=== PATIENT | female | born 1980 ===

== ENCOUNTER 2017-05-17 00:53 | Inpatient (IN) | payer MEDICAID ==
[2017-05-17] MEDS ORDERED: guaiFENesin-DM 600-30 mg ER Tab PO STA (01:49)
[2017-05-17] MEDS ORDERED: Albuterol-Ipratrop 3 mg / 0.5 (3 ml) UD INH STA (01:49)
[2017-05-17] MEDS ORDERED: Albuterol-Ipratrop 3 mg / 0.5 (3 ml) UD ONE ×2 (02:30→09:00)
[2017-05-17 02:54] LABS: BASO # 0.1 K/uL (0.0-0.2); BASO % 1.7 % (0.0-2.0); EOS # 0.7 K/uL (0.0-0.7); EOS % 11.4 % (0.0-4.0); HEMATOCRIT 19.5 % (34.0-47.0); LYMPH # 1.7 K/uL (1.0-4.3); LYMPH % 28.8 % (20.0-40.0); MEAN CELL VOLUME 55.6 fl (81.0-99.0); MEAN CORPUSCULAR HEMOGLOBIN 15.7 pg (27.0-31.0); MEAN CORPUSCULAR HGB CONC 28.2 g/dL (33.0-37.0); MONO # 0.3 K/uL (0.0-0.8); MONO % 5.6 % (0.0-10.0); NEUT # 3.1 K/uL (1.8-7.0); NEUT % 52.5 % (50.0-75.0); NRBC % 0.2 % (0.0-0.0); RED CELL DISTRIBUTION WIDTH 21.1 % (11.5-14.5); WHITE BLOOD COUNT 5.9 K/uL (4.8-10.8)
--- NOTE | 2017-05-17 03:01 | ED PDOC ---
HPI: CCC, URI, Sore Throat Time Seen by Provider: 05/17/17 01:07 Chief Complaint (Nursing): Shortness Of Breath Chief Complaint (Provider): Congestion History Per: Patient History/Exam Limitations: no limitations Onset/Duration Of Symptoms: Days (x2 weeks) Current Symptoms Are (Timing): Still Present Additional Complaint(s): Kaelyn Holloway is a 37 year old female with previous medical history of asthma and anemia, who presents to the emergency department with a complaint of congestion associated with dyspnea, cough, rhinorrhea, chest pain, shortness of breath, and excessive tiredness. Patient states that she has been using Zyrtec and inhaler to relieve her symptoms. Also reports that she has been dealing with stress from family issues and concerned about STDs because she does not trust her partner. Denies any suicidal ideation, homicidal ideation, or symptoms of STD. PMD: none provided Past Medical History Vital Signs: Last Vital Signs Temp 98.2 F 05/17/17 04:40 Pulse 77 05/17/17 04:40 Resp 16 05/17/17 04:40 BP 116/54 L 05/17/17 04:40 Pulse Ox 100 05/17/17 04:32 - Medical History PMH: Anemia, Anxiety, Arthritis, Asthma, Bronchitis, Depression, Gall Bladder Disease, Pneumonia, End Stage Renal Disease Denies: Diabetes, Hepatitis, HIV, HTN, Chronic Kidney Disease, Seizures, Sexually Transmitted Disease - Surgical History Surgical History: - Family History Family History: States: Diabetes, Hypertension - Social History Current smoker - smoking cessation education provided: Yes (<10 cigarettes/daily ) Alcohol: None Drugs: Denies - Home Medications Home Medications: Ambulatory Orders Medication Instructions Recorded Albuterol HFA [Ventolin HFA 90 2 puff IH [id number] PRN 05/17/17 mcg/actuation (8 g)] Cetirizine HCl [Zyrtec Allergy] 10 mg PO DAILY 05/17/17 - Allergies Allergies/Adverse Reactions: Allergies Allergy/AdvReac Type Severity Reaction Status Date / Time Penicillins Allergy Mild Unknown Verified 10/13/16 13:27 Review of Systems ROS Statement: Except As Marked, All Systems Reviewed And Found Negative ENT: Positive for: Nose Discharge, Nose Congestion Respiratory: Positive for: Cough, Other (dyspnea) Genitourinary Female: Negative for: Other (STD symptoms) Psych: Negative for: Suicidal ideation (or homicidal ideation) Physical Exam - Reviewed Vital Signs Reviewed: Yes - Physical Exam Appears: Positive for: Well, Non-toxic, No Acute Distress Head Exam: Positive for: ATRAUMATIC, NORMAL INSPECTION, NORMOCEPHALIC Skin: Positive for: Normal Color, Warm, Dry Eye Exam: Positive for: Normal appearance ENT: Positive for: Normal ENT Inspection Neck: Positive for: Normal, Painless ROM, Supple Cardiovascular/Chest: Positive for: Regular Rate, Rhythm Respiratory: Positive for: Normal Breath Sounds, Other (cough). Negative for: Crackles, Rales, Rhonchi, Wheezing Gastrointestinal/Abdominal: Positive for: Normal Exam, Bowel Sounds, Soft. Negative for: Tenderness Back: Positive for: Normal Inspection. Negative for: L CVA Tenderness, R CVA Tenderness Neurologic/Psych: Positive for: Alert, Oriented - Laboratory Results Result Diagrams: 05/17/17 02:28 05/17/17 02:28 - ECG O2 Sat by Pulse Oximetry: 100 (RA) Pulse Ox Interpretation: Normal Medical Decision Making Medical Decision Making: Initial Impression: URI Initial Plan: * Type and screen * Labs * Chlamydia/GC RNA, TMA * Duoneb 3ml INH * Mucinex-DM 1 tab PO * Prednisone 60mg PO * Peak flow pre/post TX * HIV rapid * Reevaluate Pt. with symptomatic anemia, will require transfusion. Will admit for anemia. CAse discussed with Dr. Huston. Scribe Attestation: Documented by Maria De Jesus Aragon, acting as a scribe for Wes Ramos MD. Provider Scribe Attestation: All medical record entries made by the Scribe were at my direction and personally dictated by me. I have reviewed the chart and agree that the record accurately reflects my personal performance of the history, physical exam, medical decision making, and the department course for this patient. I have also personally directed, reviewed, and agree with the discharge instructions and disposition. Disposition - Clinical Impression Clinical Impression: Anemia, Shortness of breath - Disposition Disposition Time: 04:00 Condition: STABLE
[2017-05-17 03:09] LABS: BLOOD UREA NITROGEN 10 mg/dl (7-17); CALCIUM 9.3 mg/dL (8.4-10.2); CARBON DIOXIDE 24 mmol/L (22-30); CHLORIDE 108 mmol/L (98-107); GFR AFRICAN-AMERICAN > 60; GLUCOSE,RANDOM 90 mg/dL (65-105); POTASSIUM 3.8 MMOL/L (3.6-5.0); SODIUM 143 mmol/l (132-148)
--- NOTE | 2017-05-17 07:52 | RAD ---
HISTORY: cp/sob, anemia COMPARISON: No prior. TECHNIQUE: Chest PA and lateral FINDINGS: LUNGS: No active pulmonary disease. PLEURA: No significant pleural effusion identified. No pneumothorax apparent. CARDIOVASCULAR: Normal. OSSEOUS STRUCTURES: No significant abnormalities. VISUALIZED UPPER ABDOMEN: Normal. OTHER FINDINGS: None. IMPRESSION: No active disease.
[2017-05-17] MEDS: Sodium Chloride 0.9% 1,000 ML IV SCH ×2 (08:53→22:19)
[2017-05-17] MEDS ORDERED: Iron Sucrose 100 mg/5 ml Inj ONE (09:00)
[2017-05-17 09:24] LABS: IRON < 10 ug/dL (37-170)
[2017-05-17] MEDS ORDERED: Hydrocortisone- 100 MG in Sodium Chloride 0.9% 100 ML IV ONE (12:00)
[2017-05-18 00:24] LABS: HEMATOCRIT 23.9 % (34.0-47.0); MEAN CELL VOLUME 63.6 fl (81.0-99.0); MEAN CORPUSCULAR HEMOGLOBIN 18.5 pg (27.0-31.0); MEAN CORPUSCULAR HGB CONC 29.1 g/dL (33.0-37.0); RED CELL DISTRIBUTION WIDTH 30.5 % (11.5-14.5); WHITE BLOOD COUNT 17.4 K/uL (4.8-10.8)
--- NOTE | 2017-05-18 02:34 | CP.PCM.CON ---
History of Present Illness - History of Present Illness History of Present Illness: 37 year old female with a history of menorrhagia and chronic iron deficiency anemia, admitted with symptomatic anemia. The patient reports to heavy periods for several years. She has been on intermittent oral iron but notes to requiring over 20 blood transfusions despite this. She is awaiting PRBC transfusion support with matched blood coming from [place]. Past medical history: Menorrhagia, iron deficiency anemia Past surgical history: x 3 Family history: Denies hematologic and oncologic problems Social history: Denies tobacco, alcohol, and illicit drug use. Allergies: PCN Review of systems: All remaining review of systems including HEENT, cardiovascular, respiratory, gatrointestinal, genitourinary, musculsokeletal, dermatologic, neurologic, and psychiatric are negative unless mentioned in the HPI. Past Patient History - Infectious Disease Hx of Infectious Diseases: None - Tetanus Immunizations Tetanus Immunization: Unknown - Past Medical History & Family History Past Medical History?: Yes - Past Social History Smoking Status: Former Smoker - CARDIAC Hx Cardiac Disorders: No Hx Hypertension: No - PULMONARY Hx Respiratory Disorders: Yes Hx Asthma: Yes Hx Bronchitis: Yes Hx Pneumonia: Yes - NEUROLOGICAL Hx Neurological Disorder: No Hx Seizures: No - HEENT Hx HEENT Problems: No - RENAL Hx Chronic Kidney Disease: No - ENDOCRINE/METABOLIC Hx Endocrine Disorders: No - HEMATOLOGICAL/ONCOLOGICAL Hx Blood Disorders: Yes Hx Anemia: Yes Hx Human Immunodeficiency Virus (HIV): No - INTEGUMENTARY Hx Dermatological Problems: No - MUSCULOSKELETAL/RHEUMATOLOGICAL Hx Musculoskeletal Disorders: Yes Hx Arthritis: Yes Hx Falls: No - GASTROINTESTINAL Hx Gastrointestinal Disorders: Yes Hx Gall Bladder Disease: Yes - GENITOURINARY/GYNECOLOGICAL Hx Genitourinary Disorders: No Hx Sexually Transmitted Disorders: No - PSYCHIATRIC Hx Psychophysiologic Disorder: Yes Hx Anxiety: Yes Hx Depression: Yes Hx Substance Use: No - SURGICAL HISTORY Hx Surgeries: Yes Hx Section: Yes (x3) Hx Tubal Ligation: Yes - ANESTHESIA Hx Anesthesia: Yes Hx Anesthesia Reactions: No Hx Malignant Hyperthermia: No Meds Allergies/Adverse Reactions: Allergies Allergy/AdvReac Type Severity Reaction Status Date / Time Penicillins Allergy Mild Unknown Verified 10/13/16 13:27 - Medications Medications: Current Medications Acetaminophen (Tylenol 325mg Tab) 650 mg PO Q6 PRN PRN Reason: Pain, moderate (4-7) Last Admin: 05/17/17 22:16 Dose: 650 mg Albuterol/Ipratropium (Duoneb 3 Mg/0.5 Mg (3 Ml) Ud) 3 ml INH RQ6 PRN PRN Reason: Shortness of Breath Sodium Chloride (Sodium Chloride 0.9%) 1,000 mls @ 70 mls/hr IV .[id number] [facility] Stop: 05/18/17 07:47 Last Admin: 05/17/17 22:19 Dose: 70 mls/hr Iron Sucrose 200 mg/ Sodium (Chloride) 110 mls @ 110 mls/hr IVPB DAILY [facility] Stop: 05/22/17 10:46 Loratadine (Claritin) 10 mg PO DAILY [facility] Last Admin: 05/17/17 09:00 Dose: Not Given Physical Exam - Head Exam Head Exam: ATRAUMATIC - Eye Exam Eye Exam: Normal appearance - ENT Exam ENT Exam: Mucous Membranes Dry - Respiratory Exam Respiratory Exam: NORMAL BREATHING PATTERN - Cardiovascular Exam Cardiovascular Exam: +S1, +S2 - GI/Abdominal Exam GI & Abdominal Exam: Normal Bowel Sounds - Extremities Exam Extremities exam: Positive for: normal inspection - Neurological Exam Neurological exam: Oriented x3 - Psychiatric Exam Psychiatric exam: Normal Affect, Normal Mood - Skin Skin Exam: Warm Results - Vital Signs Recent Vital Signs: Last Vital Signs Temp 98.3 F 05/17/17 23:44 Pulse 87 05/17/17 23:44 Resp 19 05/17/17 23:44 BP 103/63 05/17/17 23:44 Pulse Ox 99 05/17/17 23:44 - Labs Result Diagrams: 05/18/17 18:10 05/18/17 18:10 Labs: Laboratory Results - last 24 hr 05/17/17 05/17/17 23:59 23:59 WBC 17.4 H D RBC 3.75 L Hgb 6.9 L Hct 23.9 L MCV 63.6 L D MCH 18.5 L MCHC 29.1 L RDW 30.5 H Plt Count 226 Troponin I < 0.0120 Assessment & Plan (1) Anemia Assessment and Plan: work up consistent with iron deficiency anemia, likely from chronic menorrhagia 2U PRBC today; has antibodies and PRBC coming from [place] later today will start IV iron [employer] f/u Status: Acute (2) Leukocytosis Assessment and Plan: likely reactive Thank you for this interesting consult. Status: Acute
[2017-05-18 08:28] LABS: HEMATOCRIT 24.2 % (34.0-47.0); MEAN CELL VOLUME 63.2 fl (81.0-99.0); MEAN CORPUSCULAR HEMOGLOBIN 19.2 pg (27.0-31.0); MEAN CORPUSCULAR HGB CONC 30.4 g/dL (33.0-37.0); RED CELL DISTRIBUTION WIDTH 30.4 % (11.5-14.5); WHITE BLOOD COUNT 10.2 K/uL (4.8-10.8)
[2017-05-18 08:32] LABS: ALB/GLOB RATIO 1.5 (1.0-2.1); ALKALINE PHOSPHATASE 61 U/L (38-126); ALT/SGPT 26 U/L (9-52); AST/SGOT 21 U/L (14-36); BILIRUBIN,TOTAL 0.6 mg/dl (0.2-1.3); BLOOD UREA NITROGEN 11 mg/dl (7-17); CALCIUM 8.7 mg/dL (8.4-10.2); CARBON DIOXIDE 25 mmol/L (22-30); CHLORIDE 109 mmol/L (98-107); GFR AFRICAN-AMERICAN > 60; GLUCOSE,RANDOM 97 mg/dL (65-105); SODIUM 143 mmol/l (132-148); TOTAL PROTEIN 6.1 G/DL (6.3-8.2)
[2017-05-18] MEDS: Acetaminophen-Codeine 300/30 mg Tab PO PRN ×2 (11:09→17:16)
[2017-05-18] MEDS: Albuterol-Ipratrop 3 mg / 0.5 (3 ml) UD INH PRN ×2 (11:43→23:44)
[2017-05-18 18:21] LABS: HEMATOCRIT 24.8 % (34.0-47.0); MEAN CELL VOLUME 63.9 fl (81.0-99.0); MEAN CORPUSCULAR HEMOGLOBIN 18.3 pg (27.0-31.0); MEAN CORPUSCULAR HGB CONC 28.7 g/dL (33.0-37.0); RED CELL DISTRIBUTION WIDTH 30.8 % (11.5-14.5)
[2017-05-18 18:28] LABS: ALB/GLOB RATIO 1.5 (1.0-2.1); ALKALINE PHOSPHATASE 67 U/L (38-126); ALT/SGPT 63 U/L (9-52); AST/SGOT 60 U/L (14-36); BILIRUBIN,TOTAL 0.6 mg/dl (0.2-1.3); BLOOD UREA NITROGEN 11 mg/dl (7-17); CALCIUM 8.6 mg/dL (8.4-10.2); CARBON DIOXIDE 26 mmol/L (22-30); CHLORIDE 107 mmol/L (98-107); GFR AFRICAN-AMERICAN > 60; GLUCOSE,RANDOM 94 mg/dL (65-105); POTASSIUM 3.7 MMOL/L (3.6-5.0); SODIUM 142 mmol/l (132-148); TOTAL PROTEIN 6.1 G/DL (6.3-8.2)
[2017-05-18] MEDS ORDERED: Acetaminophen-Codeine 300/30 mg Tab PO ONE (20:49)
[2017-05-18 21:45] LABS: RBC URINE 2 /hpf (0-3); URINE BILIRUBIN NEGATIVE (NEGATIVE); URINE BLOOD NEGATIVE (NEGATIVE); URINE COLOR YELLOW (YELLOW); URINE GLUCOSE (UA) NEG (Normal); URINE KETONE NEGATIVE (NEGATIVE); URINE LEUKOCYTE ESTERASE TRACE Leu/uL (Negative); URINE PROTEIN NEGATIVE (NEGATIVE); WBC URINE 3 /hpf (0-5)
--- NOTE | 2017-05-19 01:06 | CP.PCM.PN ---
Subjective - Date & Time of Evaluation Date of Evaluation: 05/18/17 Time of Evaluation: 17:00 - Subjective Subjective: Has back and joint pain post transfusion Objective - Vital Signs/Intake and Output Vital Signs (last 24 hours): Temp Pulse Resp BP Pulse Ox 98.3 F 88 21 105/72 100 05/18/17 23:33 05/18/17 23:33 05/18/17 23:33 05/18/17 23:33 05/18/17 23:33 Intake and Output: 05/18/17 05/19/17 18:59 06:59 Intake Total 1500 Balance 1500 - Medications Medications: Current Medications Acetaminophen (Tylenol 325mg Tab) 650 mg PO Q6 PRN PRN Reason: Pain, moderate (4-7) Last Admin: 05/18/17 09:15 Dose: 650 mg Acetaminophen/Codeine Phosphate (Tylenol/Codeine 300 Mg/30 Mg) 1 tab PO Q6 PRN PRN Reason: Pain, severe (8-10) Last Admin: 05/18/17 17:16 Dose: 1 tab Albuterol/Ipratropium (Duoneb 3 Mg/0.5 Mg (3 Ml) Ud) 3 ml INH RQ6 PRN PRN Reason: Shortness of Breath Last Admin: 05/18/17 23:44 Dose: 3 ml Iron Sucrose 200 mg/ Sodium (Chloride) 110 mls @ 110 mls/hr IVPB DAILY [facility] Stop: 05/22/17 10:46 Last Admin: 05/18/17 17:18 Dose: 110 mls/hr Loratadine (Claritin) 10 mg PO DAILY [facility] Last Admin: 05/18/17 09:18 Dose: 10 mg - Labs Labs: 05/18/17 18:10 05/18/17 18:10 - Head Exam Head Exam: ATRAUMATIC - Eye Exam Eye Exam: Normal appearance - ENT Exam ENT Exam: Mucous Membranes Dry - Respiratory Exam Respiratory Exam: NORMAL BREATHING PATTERN - Cardiovascular Exam Cardiovascular Exam: +S1, +S2 - GI/Abdominal Exam GI & Abdominal Exam: Normal Bowel Sounds - Extremities Exam Extremities Exam: Normal Inspection - Neurological Exam Neurological Exam: Oriented x3 - Psychiatric Exam Psychiatric exam: Normal Affect, Normal Mood - Skin Skin Exam: Warm Assessment and Plan (1) Anemia Assessment & Plan: iron deficiency anemia from menorrhagia s/p 2U PRBC with improved H/H IV iron daily [employer] f/u Status: Acute
[2017-05-19 06:43] LABS: HEMATOCRIT 24.5 % (34.0-47.0); MEAN CELL VOLUME 63.3 fl (81.0-99.0); MEAN CORPUSCULAR HEMOGLOBIN 18.6 pg (27.0-31.0); MEAN CORPUSCULAR HGB CONC 29.5 g/dL (33.0-37.0); RED CELL DISTRIBUTION WIDTH 30.7 % (11.5-14.5); WHITE BLOOD COUNT 7.3 K/uL (4.8-10.8)
[2017-05-19] MEDS: Albuterol-Ipratrop 3 mg / 0.5 (3 ml) UD INH SCH ×2 (12:02→19:10)
--- NOTE | 2017-05-19 12:40 | CP.PCM.PN ---
Subjective - Date & Time of Evaluation Date of Evaluation: 05/18/17 Time of Evaluation: 07:00 - Subjective Subjective: The patient is seen and examined. Interim events noted. The patient remains in PCU. The patient feels okay. Had pain, controlled wth meds, now improving Consults noted appriciated. Received bllod transfusion PHYSICAL EXAMINATION: GENERAL: The patient is in no acute distress. VITAL SIGNS: Stable. HEART: S1, S2 normal, regular. LUNGS: Good bilateral air entry. ABDOMEN: Soft, nontender. NG tube is in good position and functioning. EXTREMITIES: No edema, no calf swelling, no tenderness, no acute ischemia. CENTRAL NERVOUS SYSTEM: Essentially unchanged.Ski: sacral decub clean. Available diagnostic data reviewed. telemetry monitoring does not reveal any significant arrythmias. Over all pt is clinically stable. Plan: As ordered Objective - Vital Signs/Intake and Output Vital Signs (last 24 hours): Temp Pulse Resp BP Pulse Ox 98.1 F 75 20 102/68 99 05/19/17 08:18 05/19/17 08:18 05/19/17 08:18 05/19/17 08:18 05/19/17 08:18 Intake and Output: 05/19/17 05/19/17 06:59 18:59 Intake Total 1500 Balance 1500 - Medications Medications: Current Medications Acetaminophen (Tylenol 325mg Tab) 650 mg PO Q6 PRN PRN Reason: Pain, moderate (4-7) Last Admin: 05/19/17 12:14 Dose: 650 mg Acetaminophen/Codeine Phosphate (Tylenol/Codeine 300 Mg/30 Mg) 1 tab PO Q6 PRN PRN Reason: Pain, severe (8-10) Last Admin: 05/18/17 17:16 Dose: 1 tab Albuterol/Ipratropium (Duoneb 3 Mg/0.5 Mg (3 Ml) Ud) 3 ml INH RQ6 PRN PRN Reason: Shortness of Breath Last Admin: 05/18/17 23:44 Dose: 3 ml Albuterol/Ipratropium (Duoneb 3 Mg/0.5 Mg (3 Ml) Ud) 3 ml INH RTID [facility] Last Admin: 05/19/17 12:02 Dose: 3 ml Iron Sucrose 200 mg/ Sodium (Chloride) 110 mls @ 110 mls/hr IVPB DAILY [facility] Stop: 05/22/17 10:46 Last Admin: 05/19/17 10:33 Dose: 110 mls/hr Loratadine (Claritin) 10 mg PO DAILY [facility] Last Admin: 05/19/17 10:33 Dose: 10 mg - Labs Labs: 05/19/17 05:00 05/18/17 18:10
[2017-05-19] MEDS ORDERED: Chlorhexidine Gluconate 1 APPL/PKT TP ONE (14:55)
--- NOTE | 2017-05-19 17:31 | CP.PCM.CON ---
<Suhas Stevenso - Last Filed: 05/19/17 18:02> History of Present Illness - History of Present Illness History of Present Illness: This is a 37 y/o female consulted with [employer] due to menorrhagia that began 18 years ago and has progressively aggravated. Pt reports menorrhagia is very severe, occurs monthly with profuse bleeding that last more than 4 days. Pt has been periodically receiving blood transfusions. Pt complains of associated fatigue and pelvic pain with every menstrual period. Pt reports having a sonogram and a endometrial biopsy 1-2 years ago which she never followed up. Pt was admitted for iron transfusion and evaluation of anemia. Pt denies headache, visual disturbances, hot flashes, CP or nausea. PMHx: stress-induced asthma, fibromyalgia, anxiety, PTSD (was under Zoloft and Seraquil therapy until 1 year ago), Current medications: Zyrtec, Albuterol, Advair and Motrin. NKDA. PSHx: 3 C-sections. [facility] Hx: . 1 with NO complications and 3 C-sections. LMP . SHx; Pt smoked since 1.5 years ago and stopped 4 weeks ago. NO alcoho or recreational drugs. Review of Systems - Constitutional Constitutional: Fatigue - EENT Eyes: absent: Blurred Vision, Change in Vision - Cardiovascular Cardiovascular: absent: Chest Pain - Reproductive: Female Reproductive:Female: Heavy Menses, Abnormal Vaginal Bleeding - Menstruation Menstruation: Heavy Menses - Musculoskeletal Musculoskeletal: absent: Abnormal Gait, Arthralgias, Limited Range of Motion, Loss of Height - Integumentary Integumentary: absent: Acne, Change in Hair, Change in Nails - Neurological Neurological: absent: Abnormal Gait, Abnormal Movements, Abnormal Speech - Psychiatric Psychiatric: absent: Confusion, Depression Past Patient History - Infectious Disease Hx of Infectious Diseases: None - Tetanus Immunizations Tetanus Immunization: Unknown - Past Medical History & Family History Past Medical History?: Yes - Past Social History Smoking Status: Former Smoker Cigar Use: Yes (Stopped 4 weeks ago.) Alcohol: None Drugs: Denies - CARDIAC Hx Cardiac Disorders: No - PULMONARY Hx Asthma: Yes - NEUROLOGICAL Hx Neurological Disorder: No Hx Seizures: No - HEENT Hx HEENT Problems: No Hx Blind: No - RENAL Hx Chronic Kidney Disease: No - ENDOCRINE/METABOLIC Hx Endocrine Disorders: No - HEMATOLOGICAL/ONCOLOGICAL Hx Blood Disorders: Yes Hx Anemia: Yes Hx Human Immunodeficiency Virus (HIV): No - INTEGUMENTARY Hx Dermatological Problems: No - MUSCULOSKELETAL/RHEUMATOLOGICAL Hx Musculoskeletal Disorders: Yes Hx Arthritis: Yes Hx Falls: No Other/Comment: Fibromyalgia - GASTROINTESTINAL Hx Gastrointestinal Disorders: Yes Hx Gall Bladder Disease: Yes - GENITOURINARY/GYNECOLOGICAL Hx Genitourinary Disorders: No Hx Sexually Transmitted Disorders: No - PSYCHIATRIC Hx Psychophysiologic Disorder: Yes Hx Anxiety: Yes Hx Depression: Yes Hx Post Traumatic Stress Disorder: Yes Hx Substance Use: No - SURGICAL HISTORY Hx Surgeries: Yes Hx Section: Yes (x3) Hx Tubal Ligation: Yes - ANESTHESIA Hx Anesthesia: Yes Hx Anesthesia Reactions: No Hx Malignant Hyperthermia: No Meds Allergies/Adverse Reactions: Allergies Allergy/AdvReac Type Severity Reaction Status Date / Time Penicillins Allergy Mild Unknown Verified 10/13/16 13:27 - Medications Medications: Current Medications Acetaminophen (Tylenol 325mg Tab) 650 mg PO Q6 PRN PRN Reason: Pain, moderate (4-7) Last Admin: 05/19/17 12:14 Dose: 650 mg Acetaminophen/Codeine Phosphate (Tylenol/Codeine 300 Mg/30 Mg) 1 tab PO Q6 PRN PRN Reason: Pain, severe (8-10) Last Admin: 05/18/17 17:16 Dose: 1 tab Albuterol/Ipratropium (Duoneb 3 Mg/0.5 Mg (3 Ml) Ud) 3 ml INH RQ6 PRN PRN Reason: Shortness of Breath Last Admin: 05/18/17 23:44 Dose: 3 ml Albuterol/Ipratropium (Duoneb 3 Mg/0.5 Mg (3 Ml) Ud) 3 ml INH RTID [facility] Last Admin: 05/19/17 12:02 Dose: 3 ml Iron Sucrose 200 mg/ Sodium (Chloride) 110 mls @ 110 mls/hr IVPB DAILY [facility] Stop: 05/22/17 10:46 Last Admin: 05/19/17 10:33 Dose: 110 mls/hr Loratadine (Claritin) 10 mg PO DAILY [facility] Last Admin: 05/19/17 10:33 Dose: 10 mg Physical Exam - Constitutional Appears: No Acute Distress - Eye Exam Eye Exam: EOMI, Normal appearance - Respiratory Exam Respiratory Exam: NORMAL BREATHING PATTERN - GI/Abdominal Exam GI & Abdominal Exam: absent: Distended, Firm, Guarding - Exam Speculum exam: NORMAL SPECULUM EXAM. absent: Vaginal Bleeding, Vaginal Discharge Bimanual exam: Uterine Enlargement (Uterus size as if it on 12-14 weeks . ). absent: Uterine Tenderness - Neurological Exam Neurological exam: Alert, Oriented x3 Results - Vital Signs Recent Vital Signs: Last Vital Signs Temp 98.3 F 05/19/17 16:10 Pulse 93 H 05/19/17 16:10 Resp 14 05/19/17 16:10 BP 100/66 05/19/17 16:10 Pulse Ox 98 05/19/17 16:10 - Labs Result Diagrams: 05/19/17 05:00 05/18/17 18:10 Labs: Laboratory Results - last 24 hr 05/18/17 05/18/17 05/18/17 18:10 18:10 21:00 WBC 7.0 RBC 3.88 Hgb 7.1 L Hct 24.8 L MCV 63.9 L MCH 18.3 L MCHC 28.7 L RDW 30.8 H Plt Count 211 Sodium 142 Potassium 3.7 Chloride 107 Carbon Dioxide 26 Anion Gap 12 BUN 11 Creatinine 0.7 Est GFR ( Amer) > 60 Est GFR (Non-Af Amer) > 60 Random Glucose 94 Calcium 8.6 Total Bilirubin 0.6 AST 60 H D ALT 63 H D Alkaline Phosphatase 67 Total Protein 6.1 L Albumin 3.6 Globulin 2.5 Albumin/Globulin Ratio 1.5 Urine Color Yellow Urine Clarity Clear Urine pH 7.0 Ur Specific Holstein 1.020 Urine Protein Negative Urine Glucose (UA) Neg Urine Ketones Negative Urine Blood Negative Urine Nitrate Negative Urine Bilirubin Negative Urine Urobilinogen 4.0 H Ur Leukocyte Esterase Trace Urine RBC (Auto) 2 Urine Microscopic WBC 3 Ur Squamous Epith Cells 3 05/19/17 05:00 WBC 7.3 RBC 3.87 Hgb 7.2 L Hct 24.5 L MCV 63.3 L MCH 18.6 L MCHC 29.5 L RDW 30.7 H Plt Count 215 Sodium Potassium Chloride Carbon Dioxide Anion Gap BUN Creatinine Est GFR ( Amer) Est GFR (Non-Af Amer) Random Glucose Calcium Total Bilirubin AST ALT Alkaline Phosphatase Total Protein Albumin Globulin Albumin/Globulin Ratio Urine Color Urine Clarity Urine pH Ur Specific Holstein Urine Protein Urine Glucose (UA) Urine Ketones Urine Blood Urine Nitrate Urine Bilirubin Urine Urobilinogen Ur Leukocyte Esterase Urine RBC (Auto) Urine Microscopic WBC Ur Squamous Epith Cells Assessment & Plan - Assessment and Plan (Free Text) Assessment: A&P -37 y/o female with menorrhagia complicated with anemia in need for further investigation. Need to rule out adenomyosis and fibroids. -Transvaginal US was ordered. -Gynecological appointment was set up at [facility], [address] [place] [address]; on FridayApril 27 at 2:[address] Teague. Gynecolocal referral provided. <Karlene De La Cruz S - Last Filed: 05/19/17 20:40> History of Present Illness - History of Present Illness History of Present Illness: Above pt seen & examined by me with Dr. Stevens. Agree with above assessment and plan. Pt was admitted for SOB not alleviated with use of Albuterol and Advair at home. Evaluation showed anemia and pt has history of menorrhagia treated with transfusions in the past. Pelvic US on 11/2015 showed uterus 10.2 x 5x 6.9 with heterogeneous endometrium ES 1.3cm Meds - Medications Medications: Current Medications Acetaminophen (Tylenol 325mg Tab) 650 mg PO Q6 PRN PRN Reason: Pain, moderate (4-7) Last Admin: 05/19/17 12:14 Dose: 650 mg Acetaminophen/Codeine Phosphate (Tylenol/Codeine 300 Mg/30 Mg) 1 tab PO Q6 PRN PRN Reason: Pain, severe (8-10) Last Admin: 05/18/17 17:16 Dose: 1 tab Albuterol/Ipratropium (Duoneb 3 Mg/0.5 Mg (3 Ml) Ud) 3 ml INH RQ6 PRN PRN Reason: Shortness of Breath Last Admin: 05/18/17 23:44 Dose: 3 ml Albuterol/Ipratropium (Duoneb 3 Mg/0.5 Mg (3 Ml) Ud) 3 ml INH RTID [facility] Last Admin: 05/19/17 19:10 Dose: Not Given Iron Sucrose 200 mg/ Sodium (Chloride) 110 mls @ 110 mls/hr IVPB DAILY [facility] Stop: 05/22/17 10:46 Last Admin: 05/19/17 10:33 Dose: 110 mls/hr Loratadine (Claritin) 10 mg PO DAILY [facility] Last Admin: 05/19/17 10:33 Dose: 10 mg Physical Exam - Constitutional Appears: No Acute Distress - Head Exam Head Exam: ATRAUMATIC, NORMOCEPHALIC - Respiratory Exam Respiratory Exam: NORMAL BREATHING PATTERN - GI/Abdominal Exam GI & Abdominal Exam: Normal Bowel Sounds, Soft. absent: Rebound, Rigid, Tenderness - Exam Bimanual exam: absent: Cervical Motion Tendernes Results - Vital Signs Recent Vital Signs: Last Vital Signs Temp 98.7 F 05/19/17 20:20 Pulse 99 H 05/19/17 20:20 Resp 16 05/19/17 20:20 BP 103/68 05/19/17 20:20 Pulse Ox 99 05/19/17 20:20 - Labs Result Diagrams: 05/19/17 05:00 05/18/17 18:10 Labs: Laboratory Results - last 24 hr 05/18/17 05/19/17 21:00 05:00 WBC 7.3 RBC 3.87 Hgb 7.2 L Hct 24.5 L MCV 63.3 L MCH 18.6 L MCHC 29.5 L RDW 30.7 H Plt Count 215 Urine Color Yellow Urine Clarity Clear Urine pH 7.0 Ur Specific Holstein 1.020 Urine Protein Negative Urine Glucose (UA) Neg Urine Ketones Negative Urine Blood Negative Urine Nitrate Negative Urine Bilirubin Negative Urine Urobilinogen 4.0 H Ur Leukocyte Esterase Trace Urine RBC (Auto) 2 Urine Microscopic WBC 3 Ur Squamous Epith Cells 3 Assessment & Plan - Assessment and Plan (Free Text) Assessment: I/P: As above. Importance of compliance with follow up and need for management d/w pt. She understands and agrees with above.
--- NOTE | 2017-05-19 17:55 | US ---
HISTORY: menorrhagia; secondary anemia. Menstrual status: Irregular periods. LMP 05/11/2017 COMPARISON: 12/04/2015 TECHNIQUE: Transabdominal, transvaginal. Real -time technique with 2D, duplex and color Doppler. FINDINGS: UTERUS: Measures 5.4 x 5.6 x 10.8 cm. Normal in size and appearance. No fibroid or other mass lesion seen. ENDOMETRIUM: Measures 8.2 mm in diameter. No ultrasound findings to suggest gestational sac, fluid, debris, mass or polyp or other pathologic process within the endometrium. CERVIX: No cervical abnormality identified. RIGHT OVARY: Measures 2.4 x 3.4 x 2.3 cm. No solid mass. Normal flow. Multiple subcentimeter follicles. LEFT OVARY: Measures 1.7 x 3.5 x 3.6 cm. No solid mass. Normal flow. Multiple subcentimeter follicles. Dominant cyst/ follicle 1.9 x 1.6 cm FREE FLUID: Trace free fluid identified in the pelvis/cul de sac. OTHER FINDINGS: None. IMPRESSION: No acute findings related to/accounting for the clinical presentation. Additional benign and/or incidental findings described above.
[2017-05-20] MEDS: Albuterol-Ipratrop 3 mg / 0.5 (3 ml) UD INH PRN ×2 (05:42→23:39)
[2017-05-20 06:13] LABS: HEMATOCRIT 27.9 % (34.0-47.0); MEAN CELL VOLUME 65.2 fl (81.0-99.0); MEAN CORPUSCULAR HEMOGLOBIN 18.6 pg (27.0-31.0); MEAN CORPUSCULAR HGB CONC 28.5 g/dL (33.0-37.0); RED CELL DISTRIBUTION WIDTH 30.7 % (11.5-14.5); WHITE BLOOD COUNT 7.1 K/uL (4.8-10.8)
[2017-05-20 07:17] LABS: ALB/GLOB RATIO 1.4 (1.0-2.1); ALKALINE PHOSPHATASE 69 U/L (38-126); ALT/SGPT 58 U/L (9-52); AST/SGOT 42 U/L (14-36); BILIRUBIN,TOTAL 0.7 mg/dl (0.2-1.3); BLOOD UREA NITROGEN 8 mg/dl (7-17); CALCIUM 9.2 mg/dL (8.4-10.2); CARBON DIOXIDE 26 mmol/L (22-30); CHLORIDE 106 mmol/L (98-107); GFR AFRICAN-AMERICAN > 60; GLUCOSE,RANDOM 90 mg/dL (65-105); POTASSIUM 3.9 MMOL/L (3.6-5.0); SODIUM 141 mmol/l (132-148); TOTAL PROTEIN 6.5 G/DL (6.3-8.2)
[2017-05-20] MEDS: Albuterol-Ipratrop 3 mg / 0.5 (3 ml) UD INH SCH ×3 (07:39→19:21)
[2017-05-20] MEDS: Acetaminophen-Codeine 300/30 mg Tab PO PRN ×2 (13:08→18:33)
--- NOTE | 2017-05-20 14:30 | CP.PCM.PN ---
Subjective - Date & Time of Evaluation Date of Evaluation: 05/20/17 Time of Evaluation: 11:00 - Subjective Subjective: Feeling better Objective - Vital Signs/Intake and Output Vital Signs (last 24 hours): Temp Pulse Resp BP Pulse Ox 98.2 F 84 20 108/70 99 05/20/17 12:15 05/20/17 12:15 05/20/17 12:15 05/20/17 12:15 05/20/17 12:15 - Medications Medications: Current Medications Acetaminophen (Tylenol 325mg Tab) 650 mg PO Q6 PRN PRN Reason: Pain, moderate (4-7) Last Admin: 05/20/17 10:41 Dose: 650 mg Acetaminophen/Codeine Phosphate (Tylenol/Codeine 300 Mg/30 Mg) 1 tab PO Q6 PRN PRN Reason: Pain, severe (8-10) Last Admin: 05/20/17 13:08 Dose: 1 tab Albuterol/Ipratropium (Duoneb 3 Mg/0.5 Mg (3 Ml) Ud) 3 ml INH RQ6 PRN PRN Reason: Shortness of Breath Last Admin: 05/20/17 05:42 Dose: 3 ml Albuterol/Ipratropium (Duoneb 3 Mg/0.5 Mg (3 Ml) Ud) 3 ml INH RTID [facility] Last Admin: 05/20/17 13:50 Dose: 3 ml Iron Sucrose 200 mg/ Sodium (Chloride) 110 mls @ 110 mls/hr IVPB DAILY [facility] Stop: 05/22/17 10:46 Last Admin: 05/20/17 10:39 Dose: 110 mls/hr Loratadine (Claritin) 10 mg PO DAILY [facility] Last Admin: 05/20/17 10:40 Dose: 10 mg - Labs Labs: 05/20/17 05:25 05/20/17 05:25 - Head Exam Head Exam: ATRAUMATIC - Eye Exam Eye Exam: Normal appearance - ENT Exam ENT Exam: Mucous Membranes Dry - Respiratory Exam Respiratory Exam: NORMAL BREATHING PATTERN - Cardiovascular Exam Cardiovascular Exam: +S1, +S2 - GI/Abdominal Exam GI & Abdominal Exam: Normal Bowel Sounds - Extremities Exam Extremities Exam: Normal Inspection Assessment and Plan (1) Anemia Assessment & Plan: iron deficiency anemia secondary to menorrhagia s/p PRBC transfusion and on IV iron H/H improving Status: Acute
[2017-05-21] MEDS: Acetaminophen-Codeine 300/30 mg Tab PO PRN ×2 (00:56→09:32)
[2017-05-21] MEDS: Albuterol-Ipratrop 3 mg / 0.5 (3 ml) UD INH PRN ×2 (05:31→11:55)
[2017-05-21 07:22] LABS: HEMATOCRIT 27.5 % (34.0-47.0); MEAN CELL VOLUME 66.8 fl (81.0-99.0); MEAN CORPUSCULAR HEMOGLOBIN 19.4 pg (27.0-31.0); RED CELL DISTRIBUTION WIDTH 31.3 % (11.5-14.5)
[2017-05-21 07:31] LABS: ALB/GLOB RATIO 1.5 (1.0-2.1); ALKALINE PHOSPHATASE 68 U/L (38-126); ALT/SGPT 55 U/L (9-52); AST/SGOT 47 U/L (14-36); BILIRUBIN,TOTAL 0.9 mg/dl (0.2-1.3); BLOOD UREA NITROGEN 10 mg/dl (7-17); CALCIUM 8.9 mg/dL (8.4-10.2); CARBON DIOXIDE 28 mmol/L (22-30); CHLORIDE 104 mmol/L (98-107); GFR AFRICAN-AMERICAN > 60; GLUCOSE,RANDOM 89 mg/dL (65-105); POTASSIUM 3.4 MMOL/L (3.6-5.0); SODIUM 140 mmol/l (132-148); TOTAL PROTEIN 6.5 G/DL (6.3-8.2)
[2017-05-21] MEDS: Albuterol-Ipratrop 3 mg / 0.5 (3 ml) UD INH SCH (08:02)
[2017-05-21 08:40] VITALS: TEMP 97.9; O2SAT 97
--- NOTE | 2017-05-21 11:41 | CP.PCM.PN ---
Subjective - Date & Time of Evaluation Date of Evaluation: 05/21/17 Time of Evaluation: 10:00 - Subjective Subjective: Feeling better, left forearm pain from IV improving Objective - Vital Signs/Intake and Output Vital Signs (last 24 hours): Temp Pulse Resp BP Pulse Ox 97.9 F 85 20 109/61 97 05/21/17 08:39 05/21/17 08:39 05/21/17 08:39 05/21/17 08:39 05/21/17 08:39 - Medications Medications: Current Medications Acetaminophen (Tylenol 325mg Tab) 650 mg PO Q6 PRN PRN Reason: Pain, moderate (4-7) Last Admin: 05/20/17 10:41 Dose: 650 mg Acetaminophen/Codeine Phosphate (Tylenol/Codeine 300 Mg/30 Mg) 1 tab PO Q6 PRN PRN Reason: Pain, severe (8-10) Last Admin: 05/21/17 09:32 Dose: 1 tab Albuterol/Ipratropium (Duoneb 3 Mg/0.5 Mg (3 Ml) Ud) 3 ml INH RQ6 PRN PRN Reason: Shortness of Breath Last Admin: 05/21/17 05:31 Dose: 3 ml Albuterol/Ipratropium (Duoneb 3 Mg/0.5 Mg (3 Ml) Ud) 3 ml INH RTID [facility] Last Admin: 05/21/17 08:02 Dose: 3 ml Iron Sucrose 200 mg/ Sodium (Chloride) 110 mls @ 110 mls/hr IVPB DAILY [facility] Stop: 05/22/17 10:46 Last Admin: 05/21/17 11:02 Dose: 110 mls/hr Loratadine (Claritin) 10 mg PO DAILY [facility] Last Admin: 05/21/17 09:33 Dose: 10 mg - Labs Labs: 05/21/17 05:00 05/21/17 05:00 - Head Exam Head Exam: ATRAUMATIC - Eye Exam Eye Exam: Normal appearance - ENT Exam ENT Exam: Mucous Membranes Dry - Respiratory Exam Respiratory Exam: NORMAL BREATHING PATTERN - Cardiovascular Exam Cardiovascular Exam: +S1, +S2 - GI/Abdominal Exam GI & Abdominal Exam: Normal Bowel Sounds - Extremities Exam Extremities Exam: Normal Inspection Assessment and Plan (1) Anemia Assessment & Plan: iron deficiency from menorrhagia; 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
--- NOTE | 2017-05-21 12:04 | CP.PCM.DIS ---
<Leland Bianchi - Last Filed: 05/22/17 12:42> Provider - Provider Date of Admission: 05/17/17 20:35 Attending physician: Bob Huston MD Time Spent in preparation of Discharge (in minutes): 35 Diagnosis - Discharge Diagnosis (1) Symptomatic anemia Status: Acute Priority: Medium Hospital Course - Lab Results Lab Results: Micro Results 05/18/17 21:00 Urine,Clean Catch Urine Culture - Final No Growth (<1,000 CFU/ML) Most Recent Lab Values WBC 8.0 K/uL (4.8-10.8) 05/21/17 05:00 RBC 4.11 Mil/uL (3.80-5.20) 05/21/17 05:00 Hgb 8.0 g/dL (12.0-16.0) L 05/21/17 05:00 Hct 27.5 % (34.0-47.0) L 05/21/17 05:00 MCV 66.8 fl (81.0-99.0) L 05/21/17 05:00 MCH 19.4 pg (27.0-31.0) L 05/21/17 05:00 MCHC 29.0 g/dL (33.0-37.0) L 05/21/17 05:00 RDW 31.3 % (11.5-14.5) H 05/21/17 05:00 Plt Count 226 K/uL (130-400) 05/21/17 05:00 MPV 9.0 fl (7.2-11.7) 05/17/17 02:28 Neut % (Auto) 52.5 % (50.0-75.0) 05/17/17 02:28 Lymph % (Auto) 28.8 % (20.0-40.0) 05/17/17 02:28 [place] % (Auto) 5.6 % (0.0-10.0) 05/17/17 02:28 Eos % (Auto) 11.4 % (0.0-4.0) H 05/17/17 02:28 Baso % (Auto) 1.7 % (0.0-2.0) 05/17/17 02:28 Neut # 3.1 K/uL (1.8-7.0) 05/17/17 02:28 Lymph # 1.7 K/uL (1.0-4.3) 05/17/17 02:28 [place] # 0.3 K/uL (0.0-0.8) 05/17/17 02:28 Eos # 0.7 K/uL (0.0-0.7) 05/17/17 02:28 Baso # 0.1 K/uL (0.0-0.2) 05/17/17 02:28 Retic Count 1.6 % (0.5-1.5) H 05/17/17 09:20 Haptoglobin 120 mg/dL (43-212) 05/17/17 08:10 Sodium 140 mmol/l (132-148) 05/21/17 05:00 Potassium 3.4 MMOL/L (3.6-5.0) L 05/21/17 05:00 Chloride 104 mmol/L (98-107) 05/21/17 05:00 Carbon Dioxide 28 mmol/L (22-30) 05/21/17 05:00 Anion Gap 11 (10-20) 05/21/17 05:00 BUN 10 mg/dl (7-17) 05/21/17 05:00 Creatinine 0.6 mg/dL (0.7-1.2) L 05/21/17 05:00 Est GFR ( Amer) > 60 05/21/17 05:00 Est GFR (Non-Af Amer) > 60 05/21/17 05:00 Random Glucose 89 mg/dL (65-105) 05/21/17 05:00 Calcium 8.9 mg/dL (8.4-10.2) 05/21/17 05:00 Iron < 10 ug/dL (37-170) L 05/17/17 08:10 TIBC 400 ug/dL (250-450) 05/17/17 08:10 % Saturation 2.5 % (20-55) L 05/17/17 08:10 Erythropoietin 1072.4 mIU/mL (2.6-18.5) H 05/17/17 08:10 Ferritin 2.0 ng/mL 05/17/17 08:10 Total Bilirubin 0.9 mg/dl (0.2-1.3) 05/21/17 05:00 AST 47 U/L (14-36) H 05/21/17 05:00 ALT 55 U/L (9-52) H 05/21/17 05:00 Alkaline Phosphatase 68 U/L (38-126) 05/21/17 05:00 Troponin I < 0.0120 ng/mL (0.00-0.120) 05/17/17 23:59 Total Protein 6.5 G/DL (6.3-8.2) 05/21/17 05:00 Albumin 3.8 g/dL (3.5-5.0) 05/21/17 05:00 Globulin 2.6 gm/dL (2.2-3.9) 05/21/17 05:00 Albumin/Globulin Ratio 1.5 (1.0-2.1) 05/21/17 05:00 Urine Color Yellow (YELLOW) 05/18/17 21:00 Urine Clarity Clear (Clear) 05/18/17 21:00 Urine pH 7.0 (5.0-8.0) 05/18/17 21:00 Ur Specific [place] 1.020 (1.003-1.030) 05/18/17 21:00 Urine Protein Negative mg/dL (NEGATIVE) 05/18/17 21:00 Urine Glucose (UA) Neg mg/dL (Normal) 05/18/17 21:00 Urine Ketones Negative mg/dL (NEGATIVE) 05/18/17 21:00 Urine Blood Negative (NEGATIVE) 05/18/17 21:00 Urine Nitrate Negative (NEGATIVE) 05/18/17 21:00 Urine Bilirubin Negative (NEGATIVE) 05/18/17 21:00 Urine Urobilinogen 4.0 mg/dL (0.2-1.0) H 05/18/17 21:00 Ur Leukocyte Esterase Trace Price/uL (Negative) 05/18/17 21:00 Urine RBC (Auto) 2 /hpf (0-3) 05/18/17 21:00 Urine Microscopic WBC 3 /hpf (0-5) 05/18/17 21:00 Ur Squamous Epith Cells 3 /hpf (0-5) 05/18/17 21:00 HIV-1 Ab Rapid Screen Non reactive (NON REAC) 05/17/17 02:28 Blood Type B POSITIVE 05/17/17 02:51 Antibody Screen Negative 05/17/17 02:51 Antibody Identification Cancelled 05/17/17 02:51 Crossmatch See Detail 05/17/17 02:51 BBK History Checked Patient has bt 05/17/17 02:51 - Hospital Course Hospital Course: HPI: 37 year old female with a history of menorrhagia and chronic iron deficiency anemia, admitted with symptomatic anemia. The patient reported heavy periods for several years. She has been on intermittent oral iron but has required many blood transfusions despite this. Pt was admitted for symptomatic anemia. Hospital Course: Dr. Browne of hem/onc was consulted. Pt recieved 2 units PRBCs as well antibodies. Pt improved after transfusion. Pt was also found to be iron deficient and was started on IV Iron. 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 Transvaginal u/s was ordered, which showed an enlarged uterus. Pt was given an appt to [facility] with [facility] for evaluation of adenomyosis/fibroids. After an uneventful hospital stay, pt was discharged in stable condition. Discharge Exam - Head Exam Head Exam: ATRAUMATIC, NORMOCEPHALIC - Eye Exam Eye Exam: EOMI Pupil Exam: PERRL - ENT Exam ENT Exam: Mucous Membranes Moist - Respiratory Exam Respiratory Exam: Clear to PA & Lateral, NORMAL BREATHING PATTERN, UNREMARKABLE. absent: Rales, Rhonchi, Wheezes, Respiratory Distress - Cardiovascular Exam Cardiovascular Exam: REGULAR RHYTHM, RRR, +S1, +S2. absent: Tachycardia, JVD, Rubs - GI/Abdominal Exam GI & Abdominal Exam: Normal Bowel Sounds, Soft, Unremarkable. absent: Tenderness - Neurological Exam Neurological exam: Alert, CN II-XII Intact, Oriented x3 - Skin Skin Exam: Dry, Intact, Normal Color, Warm Discharge Plan - Discharge Medications Prescriptions: Albuterol HFA [Ventolin HFA 90 mcg/actuation (8 g)] 2 puff IH [id number] PRN #1 inhaler PRN Reason: Shortness Of Breath Cetirizine HCl [Zyrtec] 10 mg PO DAILY #30 Ferrous Sulfate 325 mg PO TID #90 tablet Fluticasone/Salmeterol 250/50 [Advair Diskus] 1 dsk IH Q12 #60 puff - Follow Up Plan Condition: STABLE Disposition: HOME/ ROUTINE Instructions: Anemia (DC) Referrals: Rickey Browne MD [Staff Provider] - Karlene De La Cruz MD [Staff Provider] - <Bob Huston - Last Filed: 05/23/17 16:19> Provider - Provider Date of Admission: 05/17/17 20:35 Attending physician: Bob Huston MD Hospital Course - Lab Results Lab Results: Micro Results 05/18/17 21:00 Urine,Clean Catch Urine Culture - Final No Growth (<1,000 CFU/ML) Most Recent Lab Values WBC 8.0 K/uL (4.8-10.8) 05/21/17 05:00 RBC 4.11 Mil/uL (3.80-5.20) 05/21/17 05:00 Hgb 8.0 g/dL (12.0-16.0) L 05/21/17 05:00 Hct 27.5 % (34.0-47.0) L 05/21/17 05:00 MCV 66.8 fl (81.0-99.0) L 05/21/17 05:00 MCH 19.4 pg (27.0-31.0) L 05/21/17 05:00 MCHC 29.0 g/dL (33.0-37.0) L 05/21/17 05:00 RDW 31.3 % (11.5-14.5) H 05/21/17 05:00 Plt Count 226 K/uL (130-400) 05/21/17 05:00 MPV 9.0 fl (7.2-11.7) 05/17/17 02:28 Neut % (Auto) 52.5 % (50.0-75.0) 05/17/17 02:28 Lymph % (Auto) 28.8 % (20.0-40.0) 05/17/17 02:28 [place] % (Auto) 5.6 % (0.0-10.0) 05/17/17 02:28 Eos % (Auto) 11.4 % (0.0-4.0) H 05/17/17 02:28 Baso % (Auto) 1.7 % (0.0-2.0) 05/17/17 02:28 Neut # 3.1 K/uL (1.8-7.0) 05/17/17 02:28 Lymph # 1.7 K/uL (1.0-4.3) 05/17/17 02:28 [place] # 0.3 K/uL (0.0-0.8) 05/17/17 02:28 Eos # 0.7 K/uL (0.0-0.7) 05/17/17 02:28 Baso # 0.1 K/uL (0.0-0.2) 05/17/17 02:28 Retic Count 1.6 % (0.5-1.5) H 05/17/17 09:20 Haptoglobin 120 mg/dL (43-212) 05/17/17 08:10 Sodium 140 mmol/l (132-148) 05/21/17 05:00 Potassium 3.4 MMOL/L (3.6-5.0) L 05/21/17 05:00 Chloride 104 mmol/L (98-107) 05/21/17 05:00 Carbon Dioxide 28 mmol/L (22-30) 05/21/17 05:00 Anion Gap 11 (10-20) 05/21/17 05:00 BUN 10 mg/dl (7-17) 05/21/17 05:00 Creatinine 0.6 mg/dL (0.7-1.2) L 05/21/17 05:00 Est GFR ( Amer) > 60 05/21/17 05:00 Est GFR (Non-Af Amer) > 60 05/21/17 05:00 Random Glucose 89 mg/dL (65-105) 05/21/17 05:00 Calcium 8.9 mg/dL (8.4-10.2) 05/21/17 05:00 Iron < 10 ug/dL (37-170) L 05/17/17 08:10 TIBC 400 ug/dL (250-450) 05/17/17 08:10 % Saturation 2.5 % (20-55) L 05/17/17 08:10 Erythropoietin 1072.4 mIU/mL (2.6-18.5) H 05/17/17 08:10 Ferritin 2.0 ng/mL 05/17/17 08:10 Total Bilirubin 0.9 mg/dl (0.2-1.3) 05/21/17 05:00 AST 47 U/L (14-36) H 05/21/17 05:00 ALT 55 U/L (9-52) H 05/21/17 05:00 Alkaline Phosphatase 68 U/L (38-126) 05/21/17 05:00 Troponin I < 0.0120 ng/mL (0.00-0.120) 05/17/17 23:59 Total Protein 6.5 G/DL (6.3-8.2) 05/21/17 05:00 Albumin 3.8 g/dL (3.5-5.0) 05/21/17 05:00 Globulin 2.6 gm/dL (2.2-3.9) 05/21/17 05:00 Albumin/Globulin Ratio 1.5 (1.0-2.1) 05/21/17 05:00 Urine Color Yellow (YELLOW) 05/18/17 21:00 Urine Clarity Clear (Clear) 05/18/17 21:00 Urine pH 7.0 (5.0-8.0) 05/18/17 21:00 Ur Specific [place] 1.020 (1.003-1.030) 05/18/17 21:00 Urine Protein Negative mg/dL (NEGATIVE) 05/18/17 21:00 Urine Glucose (UA) Neg mg/dL (Normal) 05/18/17 21:00 Urine Ketones Negative mg/dL (NEGATIVE) 05/18/17 21:00 Urine Blood Negative (NEGATIVE) 05/18/17 21:00 Urine Nitrate Negative (NEGATIVE) 05/18/17 21:00 Urine Bilirubin Negative (NEGATIVE) 05/18/17 21:00 Urine Urobilinogen 4.0 mg/dL (0.2-1.0) H 05/18/17 21:00 Ur Leukocyte Esterase Trace Price/uL (Negative) 05/18/17 21:00 Urine RBC (Auto) 2 /hpf (0-3) 05/18/17 21:00 Urine Microscopic WBC 3 /hpf (0-5) 05/18/17 21:00 Ur Squamous Epith Cells 3 /hpf (0-5) 05/18/17 21:00 C.trachomatis RNA (TMA) Not detected (Not Detected) 05/17/17 02:28 HIV-1 Ab Rapid Screen Non reactive (NON REAC) 05/17/17 02:28 N.gonorrhoeae RNA (TMA) Not detected (Not Detected) 05/17/17 02:28 Blood Type B POSITIVE 05/17/17 02:51 Antibody Screen Negative 05/17/17 02:51 Antibody Identification Cancelled 05/17/17 02:51 Crossmatch See Detail 05/17/17 02:51 BBK History Checked Patient has bt 05/17/17 02:51
[2017-05-21 12:42] VITALS: BP 99/52; PULSE 123; RESP 18
--- NOTE | 2017-05-22 06:57 | CARD ---
APPROVED REPORT EKG Measurement Heart [id number] ID [id number] <Conclusion> Normal sinus rhythm Possible Left atrial enlargement Borderline ECG
--- NOTE | 2017-05-28 15:23 | CP.PCM.PN ---
Subjective - Date & Time of Evaluation Date of Evaluation: 05/18/17 Time of Evaluation: 14:22 - Subjective Subjective: Patient is seen and examined, The patient remains in PCU. Consults noted appriciated. Pain is getting better and control of current medication, no chest pain or shortness of breath at this time. Objective - Vital Signs/Intake and Output Vital Signs (last 24 hours): Temp Pulse Resp BP Pulse Ox 97.9 F 123 H 18 99/52 L 97 05/21/17 12:41 05/21/17 12:41 05/21/17 12:41 05/21/17 12:41 05/21/17 12:41 - Labs Labs: 05/21/17 05:00 05/21/17 05:00 - Constitutional Appears: No Acute Distress - Respiratory Exam Respiratory Exam: NORMAL BREATHING PATTERN - Cardiovascular Exam Cardiovascular Exam: +S1, +S2 - GI/Abdominal Exam GI & Abdominal Exam: Soft. absent: Tenderness - Extremities Exam Extremities Exam: absent: Pedal Edema, Tenderness Additional comments: No ischemia - Additional Findings Additional findings: Physical exam is essentially unchanged Assessment and Plan - Assessment and Plan (Free Text) Assessment: Diagnostic Data: available diagnostic data reviewed. Telemetry monitoring does not show significant arrhythmia. Hemoglobin: 7 Overall patient is clinically stable and improving. Patient was personally seen and examined by me in rounds with residents. Available labs and diagnostic data reviewed. Case, patient's condition and management plan discussed with residents in rounds. Agree with resident's progress note. Plan: As ordered.
--- NOTE | 2017-06-10 14:53 | PN ---
Dr. Bob Huston dictating a progress note for patient Kaelyn Holloway Patient seen in exam, and interviewed as noted, consults noted and appreciated: CAR[employer] HAND[employer]ER. Open and interventional plan appreciated. Patient was sent to have telemetry monitoring. Patient feels okay and does not have specific complaints, pain much improved. Physical exam: Patient is in no acute distress, vital signs are stable. 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 Telemetry is on and monitoring for significant arrhythmia. Hemoglobin is 7.9. Overall patient is clinically stable, and improving. Plan as ordered. Bob Huston MD [facility], [place]
--- NOTE | 2017-06-10 15:04 | PN ---
Dr. Bob Huston Progress Note Patient is seen and examined, The patient remains in PCU. Consults noted appriciated. Pain is getting better and control of current medication, no chest pain or shortness of breath at this time. Physical Exam: Patient is in no acute distress Vital Signs: Stable HEART: S1 and S2 LUNGS: Good bilateral air exchange ABDOMEN: Soft, nontender EXTREMITIES: No edema, no , no tenderness, negative ischemia Physical exam is essentially unchanged Diagnostic Data: available diagnostic data reviewed. Telemetry monitoring does not show significant arrhythmia. Hemoglobin: 7 Overall patient is clinically stable and improving. [facility]
--- NOTE | 2017-06-11 11:04 | CP.PCM.PN ---
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 Open and interventional plan appreciated. Patient was sent to have telemetry monitoring. Patient feels okay and does not have specific complaints, pain much improved. Objective - Vital Signs/Intake and Output Vital Signs (last 24 hours): Temp Pulse Resp BP Pulse Ox 97.9 F 123 H 18 99/52 L 97 05/21/17 12:41 05/21/17 12:41 05/21/17 12:41 05/21/17 12:41 05/21/17 12:41 - Labs Labs: 05/21/17 05:00 05/21/17 05:00 Diagnostic data: available diagnostic data is reviewed. Telemetry is on and monitoring for significant arrhythmia. Hemoglobin is 7.9. - Constitutional Appears: No Acute Distress - Respiratory Exam Respiratory Exam: Clear to Ausculation Bilateral (Good bilateral air entry) - Cardiovascular Exam Cardiovascular Exam: REGULAR RHYTHM, +S1, +S2 - GI/Abdominal Exam GI & Abdominal Exam: Soft, Normal Bowel Sounds. absent: Tenderness, Organomegaly - Extremities Exam Extremities Exam: absent: Pedal Edema (no acute swelling), Tenderness Additional comments: no acute ischemia - Neurological Exam Additional comments: Essentially unchanged Assessment and Plan - Assessment and Plan (Free Text) Assessment: Overall patient is clinically stable, and improving. Patient was personally seen and examined by me in rounds with residents. Available labs and diagnostic data reviewed. Case, Patient's condition and management plan discussed with residents in rounds. Agree with resident's documentation. Plan: As ordered. Bob Huston MD Plan: Plan as ordered.
== END 2017-05-21 14:00 | disposition home or self-care (01) | DRG 395 ==
LOC: H.ER 00:53 → H.ERHOLD 04:11 → H.TEL 06:16 → OBSVTOIN 20:35
PROVIDERS: ADMIT Internal Medicine; ATTEND Internal Medicine
PROC: 30233N1 Transfusion of Nonautologous Red Blood Cells into Peripheral Vein, Percutaneous Approach (ICD-10-PCS; principal; 2017-05-17)
DX: D50.9 Iron deficiency anemia, unspecified (principal); F32.9 Major depressive disorder, single episode, unspecified; F41.9 Anxiety disorder, unspecified; N92.0 Excessive and frequent menstruation with regular cycle; Z88.0 Allergy status to penicillin; J45.909 Unspecified asthma, uncomplicated; M79.7 Fibromyalgia; N85.2 Hypertrophy of uterus

== ENCOUNTER 2017-05-22 23:05 | Emergency (ER) | payer MEDICAID ==
[2017-05-22 23:12] VITALS: BMI 22.0
[2017-05-22 23:15] VITALS: BP 105/62; PULSE 94; RESP 18; TEMP 98.9; O2SAT 100
--- NOTE | 2017-05-22 23:43 | ED PDOC ---
HPI: General Adult Time Seen by Provider: 05/22/17 23:36 Chief Complaint (Nursing): Chest Pain Chief Complaint (Provider): body aches, hematuria History Per: Patient Additional Complaint(s): 37-year-old female with history of severe anemia presents to emergency department with generalized body aches and hematuria that started yesterday. Patient was discharged from hospital yesterday after 5 day stay for symptomatic anemia. Patient denies any chest pain or shortness of breath upon arrival today despite triage note stating otherwise. Patient denies vaginal bleeding at this time and states that her last period was 2 weeks ago. Patient states during her admission she received a blood transfusion and was told by the account associate that her body is rejecting the blood because she has had so many transfusions in her lifetime. Patient states body aches are not relieved by Tylenol or Aleve. Past Medical History Reviewed: Historical Data, Nursing Documentation, Vital Signs Vital Signs: Last Vital Signs Temp 98.9 F 05/22/17 23:12 Pulse 94 H 05/22/17 23:12 Resp 18 05/22/17 23:12 BP 105/62 05/22/17 23:12 Pulse Ox 100 05/23/17 03:36 - Medical History PMH: Anemia, Anxiety, Arthritis, Asthma, Depression, Gall Bladder Disease - Surgical History Surgical History: - Family History Family History: States: Diabetes, Hypertension - Living Arrangements Living Arrangements: With Family - Social History Current smoker - smoking cessation education provided: No Alcohol: None Drugs: Denies - Home Medications Home Medications: Ambulatory Orders Medication Instructions Recorded Albuterol HFA [Ventolin HFA 90 2 puff IH [id number] PRN #1 inhaler 05/21/17 mcg/actuation (8 g)] Cetirizine HCl [Zyrtec] 10 mg PO DAILY #30 05/21/17 Ferrous Sulfate 325 mg PO TID #90 tablet 05/21/17 Fluticasone/Salmeterol 250/50 1 dsk IH Q12 #60 puff 05/21/17 [Advair Diskus] Nitrofurantoin Macrocrystals 100 mg PO BID #14 cap 05/23/17 [Macrobid] traMADol [Ultram] 50 mg PO TID PRN #8 tab 05/23/17 - Allergies Allergies/Adverse Reactions: Allergies Allergy/AdvReac Type Severity Reaction Status Date / Time Penicillins Allergy Mild Unknown Verified 05/22/17 23:12 Review of Systems ROS Statement: Except As Marked, All Systems Reviewed And Found Negative Constitutional: Positive for: Other (body aches, body pain). Negative for: Fever, Chills Cardiovascular: Negative for: Chest Pain Respiratory: Negative for: Cough, Shortness of Breath, SOB with Exertion Gastrointestinal: Negative for: Nausea, Vomiting, Abdominal Pain, Diarrhea Genitourinary Female: Positive for: Hematuria Neurological: Negative for: Headache, Dizziness Physical Exam - Reviewed Nursing Documentation Reviewed: Yes Vital Signs Reviewed: Yes - Physical Exam Appears: Positive for: Well, Non-toxic, No Acute Distress Skin: Negative for: Rash Eye Exam: Positive for: Normal appearance, EOMI, PERRL Cardiovascular/Chest: Positive for: Regular Rate, Rhythm Respiratory: Positive for: Normal Breath Sounds. Negative for: Wheezing, Respiratory Distress Gastrointestinal/Abdominal: Positive for: Soft. Negative for: Tenderness, Distended, Guarding, Rebound Back: Negative for: L CVA Tenderness, R CVA Tenderness, Vertebral Tenderness Extremity: Negative for: Pedal Edema Neurologic/Psych: Positive for: Alert, Oriented - Laboratory Results Result Diagrams: 05/23/17 01:07 05/23/17 01:31 Urine POC: Negative - ECG Interpretation Of ECG: NSR 73 bpm, no acute finding, reviewed by PA and ED attending O2 Sat by Pulse Oximetry: 100 Pulse Ox Interpretation: Normal - Other Rad CXR X-Ray: Interpreted by Me, Viewed By Me X-Ray Interpretation: no acute finding Medical Decision Making Medical Decision Makin37 year old female with body aches and hematuria Plan: Review of previous records CBC CMP PT/PTT UA and culture EKG CXR IVF PO tramadol for pain UTI noted. Macrobid 100 mg PO given. Yeast noted in urine, 150 mg PO diflucan tablet given in ED. Hemoglobin today is 7.9, yesterday value was 8.0 LFT's chronically elevated Bilirubin elevated today, discussed with Dr. Cardona. Likely secondary to recent transfusion. Abdominal exam is benign, patient is not vomiting. Patient was discharged with prescription for Macrobid and tramadol. She was advised to follow up with Dr. Browne as instructed upon when discharged from hospital as inpatient yesterday. Patient states she feels much better. Disposition - Clinical Impression Clinical Impression: Hemorrhagic cystitis, Anemia - Patient ED Disposition Is Patient to be Admitted: No Counseled Patient/Family Regarding: Studies Performed, Diagnosis, Need For Followup, Rx Given - Disposition Referrals: Rickey Browne MD [Staff Provider] - Disposition: Routine/Home Disposition Time: 03:46 Condition: IMPROVED Additional Instructions: Take rx meds as directed. Drink plenty of fluids. Follow up in 1-[address] Browne or return any time if acutely worse. Prescriptions: Nitrofurantoin Macrocrystals [Macrobid] 100 mg PO BID #14 cap traMADol [Ultram] 50 mg PO TID PRN #8 tab PRN Reason: Pain, Moderate (4-7) Instructions: Urinary Tract Infection in Women (ED), Anemia (ED) Results - Lab Results Lab Results: 05/23/17 05/23/17 05/23/17 01:31 01:31 01:07 WBC RBC Hgb Hct MCV MCH MCHC RDW Plt Count MPV Neut % (Auto) Lymph % (Auto) [place] % (Auto) Eos % (Auto) Baso % (Auto) Neut # Lymph # [place] # Eos # Baso # PT 11.6 INR 1.0 APTT 28.5 Sodium 138 Potassium 4.0 Chloride 106 Carbon Dioxide 26 Anion Gap 10 BUN 13 Creatinine 0.6 L Est GFR ( Amer) > 60 Est GFR (Non-Af Amer) > 60 Random Glucose 87 Calcium 8.9 Total Bilirubin 3.7 H AST 121 H D ALT 62 H Alkaline Phosphatase 88 Total Protein 7.2 Albumin 4.1 Globulin 3.1 Albumin/Globulin Ratio 1.3 Urine Color [place] Urine Clarity Slighty-cloudy Urine pH 6.0 Ur Specific [place] 1.008 Urine Protein 100 Urine Glucose (UA) Neg Urine Ketones Negative Urine Blood Large Urine Nitrate Negative Urine Bilirubin Negative Urine Urobilinogen 0.2-1.0 Ur Leukocyte Esterase Neg Urine RBC (Auto) 2 Urine WBC Clumps (Auto) Few H Urine Microscopic WBC 16 H Ur Squamous Epith Cells 4 Urine Bacteria Mod H Urine Yeast (Budding) Many H 05/23/17 01:07 WBC 9.9 RBC 3.99 Hgb 7.9 L Hct 26.7 L MCV 67.0 L MCH 19.9 L MCHC 29.7 L RDW 22.6 H Plt Count 159 MPV 9.3 Neut % (Auto) 64.9 Lymph % (Auto) 15.0 L [place] % (Auto) 13.9 H Eos % (Auto) 5.1 H Baso % (Auto) 1.1 Neut # 6.4 Lymph # 1.5 [place] # 1.4 H Eos # 0.5 Baso # 0.1 PT INR APTT Sodium Potassium Chloride Carbon Dioxide Anion Gap BUN Creatinine Est GFR ( Amer) Est GFR (Non-Af Amer) Random Glucose Calcium Total Bilirubin AST ALT Alkaline Phosphatase Total Protein Albumin Globulin Albumin/Globulin Ratio Urine Color Urine Clarity Urine pH Ur Specific [place] Urine Protein Urine Glucose (UA) Urine Ketones Urine Blood Urine Nitrate Urine Bilirubin Urine Urobilinogen Ur Leukocyte Esterase Urine RBC (Auto) Urine WBC Clumps (Auto) Urine Microscopic WBC Ur Squamous Epith Cells Urine Bacteria Urine Yeast (Budding)
[2017-05-23] MEDS ORDERED: Sodium Chloride 0.9% 1,000 ML IV STA (00:34)
[2017-05-23 01:12] LABS: BASO # 0.1 K/uL (0.0-0.2); BASO % 1.1 % (0.0-2.0); EOS # 0.5 K/uL (0.0-0.7); EOS % 5.1 % (0.0-4.0); HEMOGLOBIN 7.9 g/dL (12.0-16.0); LYMPH # 1.5 K/uL (1.0-4.3); MEAN CORPUSCULAR HEMOGLOBIN 19.9 pg (27.0-31.0); MEAN CORPUSCULAR HGB CONC 29.7 g/dL (33.0-37.0); MEAN PLATELET VOLUME 9.3 fl (7.2-11.7); MONO # 1.4 K/uL (0.0-0.8); MONO % 13.9 % (0.0-10.0); NEUT # 6.4 K/uL (1.8-7.0); NEUT % 64.9 % (50.0-75.0); NRBC % 1.3 % (0.0-0.0); RBC 3.99 Mil/uL (3.80-5.20); RED CELL DISTRIBUTION WIDTH 22.6 % (11.5-14.5); WHITE BLOOD COUNT 9.9 K/uL (4.8-10.8)
[2017-05-23 01:31] LABS: SQUAMOUS EPITHIAL 4 /hpf (0-5); URINE BACTERIA MOD (<OCC); URINE BILIRUBIN NEGATIVE (NEGATIVE); URINE BLOOD LARGE (NEGATIVE); URINE CLARITY SLIGHTY-CLOUDY (Clear); URINE COLOR AMBER (YELLOW); URINE GLUCOSE (UA) NEG (Normal); URINE LEUKOCYTE ESTERASE NEG Leu/uL (Negative); URINE NITRATE NEGATIVE (NEGATIVE); URINE PROTEIN 100 mg/dL (NEGATIVE); URINE UROBILINOGEN 0.2-1.0 mg/dL (0.2-1.0); WBC CLUMPS FEW /hpf
[2017-05-23 01:43] LABS: ALBUMIN 4.1 g/dL (3.5-5.0)
[2017-05-23 01:46] LABS: ALB/GLOB RATIO 1.3 (1.0-2.1); ALT/SGPT 62 U/L (9-52); AST/SGOT 121 U/L (14-36); BLOOD UREA NITROGEN 13 mg/dl (7-17); GFR AFRICAN-AMERICAN > 60; GFR NON-AFRICAN AMERICAN > 60
[2017-05-23 01:47] LABS: CALCIUM 8.9 mg/dL (8.4-10.2)
[2017-05-23 01:50] LABS: PARTIAL THROMBOPLASTIN TIME 28.5 Seconds (25.6-37.1); PROTHROMBIN TIME 11.6 Seconds (9.8-13.1)
[2017-05-23] MEDS ORDERED: cefTRIAXone (Rocephin) 1 gm Inj ONE (03:16)
[2017-05-23] MEDS ORDERED: Fluconazole 150 MG TAB PO STA (03:54)
--- NOTE | 2017-05-23 09:28 | RAD ---
HISTORY: Chest pain COMPARISON: 05/17/2017 FINDINGS: LUNGS: The lungs are well inflated and clear. PLEURA: No significant pleural effusion identified, no pneumothorax apparent. CARDIOVASCULAR: Normal. OSSEOUS STRUCTURES: No significant abnormalities. VISUALIZED UPPER ABDOMEN: Normal. OTHER FINDINGS: None. IMPRESSION: No active pulmonary disease.
--- NOTE | 2017-05-28 10:02 | CARD ---
APPROVED REPORT EKG Measurement Heart [id number] <Conclusion> Normal sinus rhythm Normal ECG
== END 2017-05-23 04:08 | disposition home or self-care (01) ==
LOC: H.ER 23:05
DX: N39.0 Urinary tract infection, site not specified (principal); D64.9 Anemia, unspecified; R07.89 Other chest pain

== ENCOUNTER 2017-06-10 18:23 | Emergency (ER) | payer MEDICAID ==
[2017-06-10 18:23] VITALS: BMI 22.0
[2017-06-10 18:33] VITALS: BP 108/52; PULSE 98; RESP 18; TEMP 96.3; O2SAT 100
== END 2017-06-10 19:30 | disposition left against medical advice (07) ==
LOC: H.ER 18:23
DX: Z02.89 Encounter for other administrative examinations (principal)

== ENCOUNTER 2017-06-11 18:59 | Emergency (ER) | payer MEDICAID ==
[2017-06-11 19:00] VITALS: BMI 22.0
[2017-06-11 19:14] VITALS: BP 108/67; TEMP 98.6; O2SAT 98
[2017-06-11] MEDS ORDERED: Albuterol-Ipratrop 3 mg / 0.5 (3 ml) UD ONE (19:17)
[2017-06-11] MEDS ORDERED: Albuterol-Ipratrop 3 mg / 0.5 (3 ml) UD INH STA (19:34)
[2017-06-11 19:57] LABS: BASO # 0.1 K/uL (0.0-0.2); BASO % 0.8 % (0.0-2.0); EOS # 0.2 K/uL (0.0-0.7); EOS % 2.7 % (0.0-4.0); HEMATOCRIT 39.2 % (34.0-47.0); LYMPH # 2.2 K/uL (1.0-4.3); LYMPH % 31.1 % (20.0-40.0); MEAN CELL VOLUME 80.1 fl (81.0-99.0); MEAN CORPUSCULAR HEMOGLOBIN 24.9 pg (27.0-31.0); MEAN CORPUSCULAR HGB CONC 31.1 g/dL (33.0-37.0); MEAN PLATELET VOLUME 9.2 fl (7.2-11.7); MONO # 0.3 K/uL (0.0-0.8); MONO % 4.6 % (0.0-10.0); NEUT # 4.2 K/uL (1.8-7.0); NEUT % 60.8 % (50.0-75.0); RED CELL DISTRIBUTION WIDTH 35.8 % (11.5-14.5); WHITE BLOOD COUNT 6.9 K/uL (4.8-10.8)
--- NOTE | 2017-06-11 20:06 | ED PDOC ---
HPI: SOB/CHF/COPD Time Seen by Provider: 06/11/17 19:21 Chief Complaint (Nursing): Shortness Of Breath Chief Complaint (Provider): Shortness of breath History Per: Patient History/Exam Limitations: no limitations Onset/Duration Of Symptoms: Days (1) Current Symptoms Are (Timing): Still Present Associated Symptoms: Other (Chest tightness). denies: Ankle/Leg Swelling (Leg swelling) Additional Complaint(s): Patient is a 37 year old female with a past medical history of asthma presenting to the emergency department for shortness of breath ongoing x 1 day with associated cough, nasal congestion, and chest tightness. Reports using albuterol and one dose of prednisone with no relief of symptoms. Denies fever or leg swelling. Patient is concerned because she has experienced worsening and more frequent asthma exacerbation over the last 3 months. Of note, patient has been prescribed a pulmonary function test which she has not undergone yet. PCP: [facility] in [place], [place]. Past Medical History Reviewed: Historical Data, Nursing Documentation, Vital Signs Vital Signs: Last Vital Signs Temp 98.6 F 06/11/17 19:11 Pulse 77 06/11/17 21:00 Resp 16 06/11/17 21:00 BP 108/67 06/11/17 19:11 Pulse Ox 98 06/11/17 21:22 - Medical History PMH: Anemia, Anxiety, Arthritis, Asthma, Bronchitis, Depression, Gall Bladder Disease, Pneumonia, Post Traumatic Stress Disorder, End Stage Renal Disease Denies: Diabetes, Hepatitis, HIV, HTN, Chronic Kidney Disease, Seizures, Sexually Transmitted Disease - Surgical History Surgical History: - Family History Family History: States: Diabetes, Hypertension - Social History Current smoker - smoking cessation education provided: No Ex-Smoker (has not smoked in the last 12 months): Yes Alcohol: None Drugs: Denies - Home Medications Home Medications: Ambulatory Orders Medication Instructions Recorded Albuterol HFA [Ventolin HFA 90 2 puff IH [id number] PRN #1 inhaler 05/21/17 mcg/actuation (8 g)] Cetirizine HCl [Zyrtec] 10 mg PO DAILY #30 05/21/17 Ferrous Sulfate 325 mg PO TID #90 tablet 05/21/17 Fluticasone/Salmeterol 250/50 1 dsk IH Q12 #60 puff 05/21/17 [Advair Diskus] Nitrofurantoin Macrocrystals 100 mg PO BID #14 cap 05/23/17 [Macrobid] traMADol [Ultram] 50 mg PO TID PRN #8 tab 05/23/17 Albuterol 0.083% [Albuterol 3 ml IH Q4 PRN #50 neb 06/11/17 Sulfate 3 Ml] Montelukast [Singulair] 10 mg PO DAILY #30 tab 06/11/17 Prednisone 50 mg PO DAILY #4 tablet 06/11/17 - Allergies Allergies/Adverse Reactions: Allergies Allergy/AdvReac Type Severity Reaction Status Date / Time Penicillins Allergy Mild Unknown Verified 05/22/17 23:12 Review of Systems ROS Statement: Except As Marked, All Systems Reviewed And Found Negative Constitutional: Negative for: Fever ENT: Positive for: Nose Congestion Cardiovascular: Positive for: Other (Chest tightness) Respiratory: Positive for: Cough, Shortness of Breath Musculoskeletal: Negative for: Other (Leg swelling) Physical Exam - Reviewed Nursing Documentation Reviewed: Yes Vital Signs Reviewed: Yes - Physical Exam Appears: Positive for: Well, Non-toxic Head Exam: Positive for: ATRAUMATIC, NORMAL INSPECTION, NORMOCEPHALIC Skin: Positive for: Normal Color, Warm, Dry Eye Exam: Positive for: Normal appearance, EOMI, PERRL ENT: Positive for: Pharynx Is (clear), Other (Boggy nasal turbinates). Negative for: Normal ENT Inspection Neck: Positive for: Normal, Painless ROM, Supple Cardiovascular/Chest: Positive for: Regular Rate, Rhythm. Negative for: Murmur Respiratory: Positive for: Accessory Muscle Use (Mild), Respiratory Distress ( Mild). Negative for: Normal Breath Sounds, Rales, Rhonchi, Wheezing Gastrointestinal/Abdominal: Positive for: Normal Exam, Soft Back: Positive for: Normal Inspection. Negative for: L CVA Tenderness, R CVA Tenderness Extremity: Positive for: Normal ROM. Negative for: Pedal Edema Neurologic/Psych: Positive for: Alert, Oriented, Mood/Affect (Anxious) - Laboratory Results Result Diagrams: 06/11/17 19:53 06/11/17 19:53 - ECG O2 Sat by Pulse Oximetry: 98 (RA) Pulse Ox Interpretation: Normal Medical Decision Making Medical Decision Making: Time: 19:29 Initial Impression: Shortness of breath Differential includes but not limited to asthma exacerbation, status asthmaticus , pneumonia, anemia, and bronchitis. Initial Plan: * EKG * Labs * Urine Dipstick * Urine * Chest X-Ray * Albuterol 9mL INH * Blood culture * Peak flow pre and post treatment * Reevaluation 21:10 -Chest X-ray is normal. No acute findings. -Labs with no emergent clinically significant lab abnormalities -On reeval pt feels better. No respiratory distress. Scribe Attestation: Documented by Edith Odom, acting as a scribe for Dolores Camacho MD. Provider Scribe Attestation: All medical record entries made by the Scribe were at my direction and personally dictated by me. I have reviewed the chart and agree that the record accurately reflects my personal performance of the history, physical exam, medical decision making, and the department course for this patient. I have also personally directed, reviewed, and agree with the discharge instructions and disposition. Disposition - Clinical Impression Clinical Impression: Asthma exacerbation Counseled Patient/Family Regarding: Studies Performed, Diagnosis, Need For Followup, Rx Given - Disposition Referrals: [facility] [Outside] - 06/12/17 (MAKE APPOINTMENT WITH CLINIC WITHIN A WEEK. SCHEDULE YOUR PULMONARY FUNCTION TEST SOON POSSIBLE) Disposition: Routine/Home Disposition Time: 21:00 Condition: IMPROVED Prescriptions: Albuterol 0.083% [Albuterol Sulfate 3 Ml] 3 ml IH Q4 PRN #50 neb PRN Reason: asthma Montelukast [Singulair] 10 mg PO DAILY #30 tab Prednisone 50 mg PO DAILY #4 tablet Instructions: Asthma (ED)
[2017-06-11 20:09] LABS: ALB/GLOB RATIO 1.1 (1.0-2.1); ALKALINE PHOSPHATASE 56 U/L (38-126); ALT/SGPT 24 U/L (9-52); AST/SGOT 24 U/L (14-36); BILIRUBIN,TOTAL 0.6 mg/dl (0.2-1.3); BLOOD UREA NITROGEN 6 mg/dl (7-17); CALCIUM 9.5 mg/dL (8.4-10.2); CARBON DIOXIDE 22 mmol/L (22-30); CHLORIDE 111 mmol/L (98-107); GFR AFRICAN-AMERICAN > 60; GLUCOSE,RANDOM 119 mg/dL (65-105); POTASSIUM 3.9 MMOL/L (3.6-5.0); SODIUM 144 mmol/l (132-148); TOTAL PROTEIN 8.2 G/DL (6.3-8.2)
[2017-06-11 20:39] LABS: THYROID STIMULATING HORMONE 1.06 mIU/ML (0.46-4.68)
[2017-06-11 21:27] VITALS: PULSE 77; RESP 16
--- NOTE | 2017-06-12 09:49 | RAD ---
HISTORY: SOB COMPARISON: Chest x-ray performed 05/23/17 TECHNIQUE: Chest PA and lateral FINDINGS: LUNGS: No focal consolidation. Bilateral 9 mm nodular densities, likely nipple shadows. Please note that chest x-ray has limited sensitivity for the detection of pulmonary masses. PLEURA: No significant pleural effusion identified. No definite pneumothorax . CARDIOVASCULAR: The cardiomediastinal silhouette appears within normal limits of size. OSSEOUS STRUCTURES: No acute osseous abnormality identified. VISUALIZED UPPER ABDOMEN: Unremarkable. OTHER FINDINGS: None. IMPRESSION: No acute findings. See above.
--- NOTE | 2017-06-12 10:22 | CARD ---
APPROVED REPORT EKG Measurement Heart [id number] NM [id number] <Conclusion> Sinus rhythm with marked sinus arrhythmia Otherwise normal ECG
== END 2017-06-11 21:51 | disposition home or self-care (01) ==
LOC: H.ER 18:59
DX: J45.901 Unspecified asthma with (acute) exacerbation (principal); R60.0 Localized edema; F32.9 Major depressive disorder, single episode, unspecified; Z88.0 Allergy status to penicillin; F43.10 Post-traumatic stress disorder, unspecified; N18.6 End stage renal disease

== ENCOUNTER 2017-07-07 03:08 | Emergency (ER) | payer MEDICAID ==
[2017-07-07 03:08] VITALS: BMI 22.0
[2017-07-07 03:14] VITALS: BP 114/50; PULSE 146; TEMP 98.6; O2SAT 100
[2017-07-07] MEDS ORDERED: Albuterol-Ipratrop 3 mg / 0.5 (3 ml) UD INH STA ×3 (03:18→03:19)
[2017-07-07] MEDS ORDERED: Magnesium Sulfate 2 GM in Sodium Chloride 0.9% 100 ML IV STA (03:18)
[2017-07-07] MEDS ORDERED: Promethazine/Cod 6.25mg-10mg/5ml Syr UD PO STA (03:19)
[2017-07-07] MEDS ORDERED: Promethazine/Cod 6.25mg-10mg/5ml Syr UD ONE (03:30)
[2017-07-07] MEDS ORDERED: Magnesium Sulfate 2 gm/50 ml 2 GM/50 ML BAG ONE (03:31)
[2017-07-07] MEDS ORDERED: Albuterol-Ipratrop 3 mg / 0.5 (3 ml) UD ONE (03:31)
--- NOTE | 2017-07-07 03:35 | ED PDOC ---
HPI: SOB/CHF/COPD Time Seen by Provider: 07/07/17 03:15 Chief Complaint (Nursing): Shortness Of Breath Chief Complaint (Provider): Shortness of Breath History Per: Patient History/Exam Limitations: no limitations Onset/Duration Of Symptoms: Hrs (x1.5) Current Symptoms Are (Timing): Still Present Additional Complaint(s): Kaelyn Holloway is a 37 year old female with a past medical history of asthma and depression presenting to the ED for an evaluation of worsening chest tightness and shortness of breath beginning an hour and a half prior to arrival. The patient reports associated dry cough and wheezing. She states these are consistent symptoms relating to previous episodes of asthma exacerbation and she has used her Albuterol inhaler, without relief. The patient reports her asthma is usually triggered due to a change in temperature or weather. She denies any associated fever, vomiting, or diarrhea. PMD: Non [facility] Provider Past Medical History Reviewed: Historical Data, Nursing Documentation, Vital Signs Vital Signs: Last Vital Signs Temp 98.6 F 07/07/17 03:11 Pulse 146 H 07/07/17 03:11 Resp 30 H 07/07/17 03:20 BP 114/50 L 07/07/17 03:11 Pulse Ox 100 07/07/17 06:45 - Medical History PMH: Anemia, Anxiety, Arthritis, Asthma, Bronchitis, Depression, Gall Bladder Disease, Pneumonia, Post Traumatic Stress Disorder, End Stage Renal Disease Denies: Diabetes, Hepatitis, HIV, HTN, Chronic Kidney Disease, Seizures, Sexually Transmitted Disease - Surgical History Surgical History: - Family History Family History: States: Diabetes, Hypertension - Social History Current smoker - smoking cessation education provided: No Ex-Smoker (has not smoked in the last 12 months): No Alcohol: None Drugs: Denies - Home Medications Home Medications: Ambulatory Orders Medication Instructions Recorded Albuterol HFA [Ventolin HFA 90 2 puff IH [id number] PRN #1 inhaler 05/21/17 mcg/actuation (8 g)] Cetirizine HCl [Zyrtec] 10 mg PO DAILY #30 05/21/17 Ferrous Sulfate 325 mg PO TID #90 tablet 05/21/17 Fluticasone/Salmeterol 250/50 1 dsk IH Q12 #60 puff 05/21/17 [Advair Diskus] Nitrofurantoin Macrocrystals 100 mg PO BID #14 cap 05/23/17 [Macrobid] traMADol [Ultram] 50 mg PO TID PRN #8 tab 05/23/17 Albuterol 0.083% [Albuterol 3 ml IH Q4 PRN #50 neb 06/11/17 Sulfate 3 Ml] Montelukast [Singulair] 10 mg PO DAILY #30 tab 06/11/17 Prednisone 50 mg PO DAILY #4 tablet 06/11/17 Benzonatate [Tessalon Perle] 100 mg PO TID PRN #15 capsule 07/07/17 Methylprednisolone [Medrol Dosepak] 4 mg PO ASDIR #1 pkg 07/07/17 Montelukast Sodium [Singulair] 10 mg PO QAM #14 tablet 07/07/17 - Allergies Allergies/Adverse Reactions: Allergies Allergy/AdvReac Type Severity Reaction Status Date / Time Penicillins Allergy Mild Unknown Verified 05/22/17 23:12 Review of Systems ROS Statement: Except As Marked, All Systems Reviewed And Found Negative Constitutional: Negative for: Fever Cardiovascular: Positive for: Chest Pain (chest tightness ) Respiratory: Positive for: Cough (dry), Shortness of Breath, Wheezing Gastrointestinal: Negative for: Vomiting, Diarrhea Physical Exam - Reviewed Nursing Documentation Reviewed: Yes Vital Signs Reviewed: Yes - Physical Exam Appears: Positive for: Well, Non-toxic. Negative for: No Acute Distress ( moderate distress) Head Exam: Positive for: ATRAUMATIC, NORMAL INSPECTION, NORMOCEPHALIC Skin: Positive for: Normal Color, Warm, DRY Eye Exam: Positive for: EOMI, Normal appearance, PERRL ENT: Positive for: Normal ENT Inspection Neck: Positive for: Normal, Painless ROM Cardiovascular/Chest: Positive for: Regular Rate, Rhythm Respiratory: Positive for: Wheezing (diffuse expiratory wheezing with decreased air entry and intercostal retractions ) Gastrointestinal/Abdominal: Positive for: Normal Exam, Bowel Sounds, Soft Back: Positive for: Normal Inspection Extremity: Positive for: Normal ROM Neurologic/Psych: Positive for: Alert, Oriented - Laboratory Results Result Diagrams: 07/07/17 03:37 07/07/17 03:37 - ECG O2 Sat by Pulse Oximetry: 100 (RA) Pulse Ox Interpretation: Normal - Critical Care Total Time (In Min): 30 Medical Decision Making Medical Decision Makin:15 Impression: 37 year old female with a past medical history of asthma and depression presenting with dyspnea, shortness of breath, and exacerbation of asthma Plan: * ED EKG * CMP * Urine * CBC (With differential) * Duoneb 3mg/0.5 mg (3 ml) UD Inh * Magnesium Sulfate 2 gm NS 100 ml IV * Phenergan/Codeine Oral Syrup 10 ml PO * Solu-medrol 125 mg IVP * Peak Flow Pre/Post Tx * Reevaluation 5AM On reeval pt shows marked improvement of symptoms and is stable for discharge home with f/u with [facility] DX Asthma Exacerbation Stable Scribe Attestation: Documented by Sonya Jason, acting as a scribe for Praveen Cardona MD. Provider Scribe Attestation: All medical record entries made by the Scribe were at my direction and personally dictated by me. I have reviewed the chart and agree that the record accurately reflects my personal performance of the history, physical exam, medical decision making, and the department course for this patient. I have also personally directed, reviewed, and agree with the discharge instructions and disposition. Disposition - Clinical Impression Clinical Impression: Asthma exacerbation - Patient ED Disposition Is Patient to be Admitted: No Counseled Patient/Family Regarding: Studies Performed, Diagnosis, Need For Followup, Rx Given - Disposition Disposition: Routine/Home Disposition Time: 05:00 Condition: IMPROVED Prescriptions: Benzonatate [Tessalon Perle] 100 mg PO TID PRN #15 capsule PRN Reason: Cough Methylprednisolone [Medrol Dosepak] 4 mg PO ASDIR #1 pkg Montelukast Sodium [Singulair] 10 mg PO QAM #14 tablet Instructions: Asthma (ED) Forms: [employer] ([place])
[2017-07-07 03:42] LABS: BASO % 0.6 % (0.0-2.0); EOS # 0.6 K/uL (0.0-0.7); EOS % 7.9 % (0.0-4.0); HEMATOCRIT 41.5 % (34.0-47.0); LYMPH % 43.3 % (20.0-40.0); MEAN CELL VOLUME 82.5 fl (81.0-99.0); MEAN CORPUSCULAR HEMOGLOBIN 27.9 pg (27.0-31.0); MEAN CORPUSCULAR HGB CONC 33.8 g/dL (33.0-37.0); MEAN PLATELET VOLUME 9.2 fl (7.2-11.7); MONO # 0.4 K/uL (0.0-0.8); MONO % 5.5 % (0.0-10.0); NEUT % 42.7 % (50.0-75.0); NRBC % 0.2 % (0.0-0.0); RED CELL DISTRIBUTION WIDTH 23.7 % (11.5-14.5)
[2017-07-07 04:24] VITALS: RESP 30
[2017-07-07 04:41] LABS: BLOOD UREA NITROGEN 6 mg/dl (7-17); GFR AFRICAN-AMERICAN > 60; GLUCOSE,RANDOM 115 mg/dL (65-105)
[2017-07-07 04:42] LABS: ALB/GLOB RATIO 1.3 (1.0-2.1); ALT/SGPT 27 U/L (9-52); AST/SGOT 27 U/L (14-36); BILIRUBIN,TOTAL 0.6 mg/dl (0.2-1.3); CALCIUM 9.6 mg/dL (8.4-10.2); CARBON DIOXIDE 22 mmol/L (22-30); CHLORIDE 106 mmol/L (98-107); POTASSIUM 3.6 MMOL/L (3.6-5.0); SODIUM 139 mmol/l (132-148); TOTAL PROTEIN 7.8 G/DL (6.3-8.2)
[2017-07-07 04:43] LABS: ALKALINE PHOSPHATASE 57 U/L (38-126)
--- NOTE | 2017-07-07 12:58 | CARD ---
APPROVED REPORT EKG Measurement Heart [id number] CO [id number] <Conclusion> Sinus tachycardia Nonspecific ST and T wave abnormality Abnormal ECG
== END 2017-07-07 06:22 | disposition home or self-care (01) ==
LOC: H.ER 03:08
DX: J45.901 Unspecified asthma with (acute) exacerbation (principal); F32.9 Major depressive disorder, single episode, unspecified; F43.10 Post-traumatic stress disorder, unspecified; N18.6 End stage renal disease; Z88.0 Allergy status to penicillin; D64.9 Anemia, unspecified
CPT/HCPCS: 80053; 85025; 93005; 96365; 96375; 99283; J2930; J3475

== ENCOUNTER 2017-07-12 02:09 | Observation (INO) | payer MEDICAID ==
[2017-07-12] MEDS ORDERED: Albuterol-Ipratrop 3 mg / 0.5 (3 ml) UD ONE ×2 (02:19→02:39)
[2017-07-12] MEDS ORDERED: Albuterol-Ipratrop 3 mg / 0.5 (3 ml) UD INH STA ×3 (02:25→02:26)
[2017-07-12] MEDS ORDERED: Magnesium Sulfate 2 gm/50 ml 2 GM/50 ML BAG IV STA (02:25)
[2017-07-12 02:39] LABS: BASO % 0.3 % (0.0-2.0); EOS # 0.2 K/uL (0.0-0.7); EOS % 2.3 % (0.0-4.0); HEMATOCRIT 44.3 % (34.0-47.0); LYMPH # 1.2 K/uL (1.0-4.3); LYMPH % 14.3 % (20.0-40.0); MEAN CORPUSCULAR HGB CONC 33.3 g/dL (33.0-37.0); MONO # 0.2 K/uL (0.0-0.8); MONO % 2.2 % (0.0-10.0); NEUT # 6.8 K/uL (1.8-7.0); NEUT % 80.9 % (50.0-75.0); RED CELL DISTRIBUTION WIDTH 20.2 % (11.5-14.5); WHITE BLOOD COUNT 8.4 K/uL (4.8-10.8)
[2017-07-12] MEDS ORDERED: Magnesium Sulfate 2 gm/50 ml 2 GM/50 ML BAG ONE (02:39)
--- NOTE | 2017-07-12 02:40 | ED PDOC ---
HPI: SOB/CHF/COPD Time Seen by Provider: 07/12/17 02:15 Chief Complaint (Nursing): Respiratory Distress History Per: Patient History/Exam Limitations: no limitations Onset/Duration Of Symptoms: Days Current Symptoms Are (Timing): Still Present Quality: Tightness Current Respiratory Medications: See Home Med List Severity: Moderate Associated Symptoms: Productive Cough. denies: Fever Recently: Seen In ED Additional History Per: Patient Additional Complaint(s): 37 y/o female with a history of asthma who is here this evening complaining of acute onset progressive wheezing and cough. Tonight she developed dyspnea and chest tightness. No fever. She did try a Duo Neb and Benadryl tonight without relief. Patient has been seen in the ED multiple times for the same, most recently three days ago where she was discharged after clinical improvement. However, when she returned home she complained that her symptoms persisted in spite of medications, and tonight she had significant dyspnea prompting a return to the ED. No other complaints at this time. Past Medical History Reviewed: Historical Data, Nursing Documentation, Vital Signs Vital Signs: Last Vital Signs Temp 96.6 F L 07/12/17 02:25 Pulse 52 L 07/12/17 02:25 Resp 18 07/12/17 02:25 BP Pulse Ox 98 07/12/17 05:31 - Medical History PMH: Anemia, Anxiety, Arthritis, Asthma, Bronchitis, Depression, Gall Bladder Disease, Pneumonia, Post Traumatic Stress Disorder, End Stage Renal Disease Denies: Diabetes, Hepatitis, HIV, HTN, Chronic Kidney Disease, Seizures, Sexually Transmitted Disease - Surgical History Surgical History: No Surg Hx, - Family History Family History: States: Diabetes, Hypertension - Social History Current smoker - smoking cessation education provided: No Ex-Smoker (has not smoked in the last 12 months): No Alcohol: None - Home Medications Home Medications: Ambulatory Orders Medication Instructions Recorded Albuterol HFA [Ventolin HFA 90 2 puff IH [id number] PRN #1 inhaler 05/21/17 mcg/actuation (8 g)] Cetirizine HCl [Zyrtec] 10 mg PO DAILY #30 05/21/17 Ferrous Sulfate 325 mg PO TID #90 tablet 05/21/17 Fluticasone/Salmeterol 250/50 1 dsk IH Q12 #60 puff 05/21/17 [Advair Diskus] Nitrofurantoin Macrocrystals 100 mg PO BID #14 cap 05/23/17 [Macrobid] traMADol [Ultram] 50 mg PO TID PRN #8 tab 05/23/17 Albuterol 0.083% [Albuterol 3 ml IH Q4 PRN #50 neb 06/11/17 Sulfate 3 Ml] Benzonatate [Tessalon Perle] 100 mg PO TID PRN #15 capsule 07/07/17 Methylprednisolone [Medrol Dosepak] 4 mg PO ASDIR #1 pkg 07/07/17 Montelukast Sodium [Singulair] 10 mg PO QAM #14 tablet 07/07/17 MedroxyPROGESTERone [Provera] 07/12/17 Prednisone mg PO DAILY 07/12/17 - Allergies Allergies/Adverse Reactions: Allergies Allergy/AdvReac Type Severity Reaction Status Date / Time Penicillins Allergy Mild Unknown Verified 05/22/17 23:12 Review of Systems ROS Statement: Except As Marked, All Systems Reviewed And Found Negative Constitutional: Negative for: Fever Respiratory: Positive for: Cough, Shortness of Breath, Wheezing Physical Exam - Reviewed Nursing Documentation Reviewed: Yes Vital Signs Reviewed: Yes - Physical Exam Appears: Positive for: Non-toxic, Uncomfortable Head Exam: Positive for: ATRAUMATIC, NORMAL INSPECTION, NORMOCEPHALIC Skin: Positive for: Normal Color, Warm, DRY Eye Exam: Positive for: EOMI, Normal appearance, PERRL ENT: Positive for: Normal ENT Inspection Neck: Positive for: Normal, Painless ROM Cardiovascular/Chest: Positive for: Regular Rate, Rhythm Respiratory: Positive for: Decreased Breath Sounds (throughout), Wheezing ( expiratory, bilateral), Respiratory Distress (moderate), Other (intercostal and supraclavicular retractions) Gastrointestinal/Abdominal: Positive for: Normal Exam, Bowel Sounds, Soft Back: Positive for: Normal Inspection Extremity: Positive for: Normal ROM Neurologic/Psych: Positive for: Alert, Oriented - Laboratory Results Result Diagrams: 07/12/17 02:30 07/12/17 02:30 - ECG O2 Sat by Pulse Oximetry: 98 (RA) Pulse Ox Interpretation: Normal - Critical Care Total Time (In Min): 30 Medical Decision Making Medical Decision Making: Impression: 37 y/o female with known asthma Plan: - DuoNeb, Magnesium Sulfate, Solumedrol - CXR Labs reviewed show no clinically sig abnormalities Patient shows mild improvement in symptoms Pt will be hospitalized as observation patient given 2nd visit in last 1 week. Case referred to Dr Huff for [facility] [place] DX Resp Distress, Asthma Exacerbation Fair Scribe Attestation Documented by Saige Edwards acting as a scribe for Praveen Cardona MD. Provider Attestation: All medical record entries made by the Scribe were at my direction and personally dictated by me. I have reviewed the chart and agree that the record accurately reflects my personal performance of the history, physical exam, medical decision making, and the department course for this patient. I have also personally directed, reviewed, and agree with the discharge instructions and disposition. Disposition - Clinical Impression Clinical Impression: Respiratory distress, Asthma exacerbation - Patient ED Disposition Is Patient to be Admitted: Yes Doctor Will See Patient In The: Office Counseled Patient/Family Regarding: Studies Performed, Diagnosis - Disposition Disposition Time: 02:45 Condition: FAIR - Pt Status Changed To: Hospital Disposition Of: Observation - POA Present On Arrival: None
--- NOTE | 2017-07-12 02:49 | CP.PCM.HP ---
<Refugio Dewey F - Last Filed: 07/12/17 03:16> History of Present Illness - History of Present Illness History of Present Illness: CC: asthma exacerbation 37 y/o woman w/ pmh of moderate persistent asthma, menorrhagia, ALEX presenting with worsening wheezing and respiratory distress x 1 day. Patient has had multiple ED visits in the past month with the same issue. supposed to be taking singulair, advair, prednisone daily, albuterol PRN. States ''running out of advair'' x 3-4 weeks. States calling the clinic but ''there were no appointments until July'. Poor medication compliance noted. Used her albuterol 5-6 times today prior to coming to the ED. Patient has noted increased cough, 2-3 night time awakenings/week x 1 month. Denies ever being intubated due to asthma. No recent illness or antibiotic use reported. Patient was ordered PFTs in clinic on last visit but has not done so yet. Triggers: Patient reports multiple pets at home, 2 dogs and 1 cat, recently acquiring a second dog 1 month ago approximately. Pollen and grass. No carpets or second hand smoke at home. Presently denies f/c/n/v/cp/abd pain/diarrhea/focal weakness ED Course: DuoNeb, Magnesium Sulfate 2gm IV, Solumedrol IV, CXR, O2 NC PMD: Dr Galindo Meds: per [facility] provera Iron (Ferrous Sulfate) Albutero sulfate, singulair, advair PMH: asthma, menorrhagia, and iron deficiency anemia PSH: CS x3 SH: multiple pets at home, 2 dogs and 1 cat, recently acquiring a second dog 1 month ago approximately. No carpets or second hand smoke, denies etoh, tob, drugs Present on Admission - Present on Admission Any Indicators Present on Admission: No History of DVT/PE: No History of Uncontrolled Diabetes: No Review of Systems - Review of Systems Review of Systems: see hpi Past Patient History - Infectious Disease Hx of Infectious Diseases: None - Tetanus Immunizations Tetanus Immunization: Unknown - Past Medical History & Family History Past Medical History?: Yes - Past Social History Alcohol: None - CARDIAC Hx Hypertension: No - PULMONARY Hx Asthma: Yes Hx Bronchitis: Yes Hx Pneumonia: Yes - NEUROLOGICAL Hx Seizures: No - HEENT Hx Blind: No - RENAL Hx Chronic Kidney Disease: No - ENDOCRINE/METABOLIC Hx Endocrine Disorders: No - HEMATOLOGICAL/ONCOLOGICAL Hx Anemia: Yes Hx Human Immunodeficiency Virus (HIV): No - INTEGUMENTARY Hx Dermatological Problems: No - MUSCULOSKELETAL/RHEUMATOLOGICAL Hx Arthritis: Yes - GASTROINTESTINAL Hx Gall Bladder Disease: Yes - GENITOURINARY/GYNECOLOGICAL Hx Sexually Transmitted Disorders: No - PSYCHIATRIC Hx Anxiety: Yes Hx Depression: Yes Hx Post Traumatic Stress Disorder: Yes - SURGICAL HISTORY Hx Surgeries: Yes Hx Section: Yes (x3) Hx Tubal Ligation: Yes - ANESTHESIA Hx Anesthesia: Yes Hx Anesthesia Reactions: No Hx Malignant Hyperthermia: No Meds Allergies/Adverse Reactions: Allergies Allergy/AdvReac Type Severity Reaction Status Date / Time seasonal Allergy Intermediate WHEEZING Uncoded 07/12/17 05:46 Physical Exam - Constitutional Additional comments: tripodinng, cannot speak in full sentences, on duoneb - Head Exam Head Exam: ATRAUMATIC - Eye Exam Eye Exam: EOMI Pupil Exam: PERRL - ENT Exam ENT Exam: Mucous Membranes Moist - Neck Exam Neck exam: Positive for: Full Rom - Respiratory Exam Respiratory Exam: Accessory Muscle Use, Decreased Breath Sounds (poor air entry at lung bases), Wheezes (diffuse wheezing) Additional comments: unable to speak in full sentences, tripod position, neck retractions - Cardiovascular Exam Cardiovascular Exam: Tachycardia, +S1, +S2 - GI/Abdominal Exam GI & Abdominal Exam: Soft. absent: Tenderness - Extremities Exam Extremities exam: Positive for: full ROM. Negative for: calf tenderness, pedal edema - Neurological Exam Neurological exam: Alert, Oriented x3 - Skin Skin Exam: Dry, Warm Results - Vital Signs Recent Vital Signs: Last Vital Signs Temp 96.6 F L 07/12/17 02:25 Pulse 52 L 07/12/17 02:25 Resp 18 07/12/17 02:25 BP Pulse Ox 98 07/12/17 02:45 - Labs Result Diagrams: 07/12/17 02:30 07/12/17 02:30 Labs: Laboratory Results - last 24 hr 07/12/17 02:30 WBC 8.4 RBC 5.28 H Hgb 14.8 Hct 44.3 MCV 84.0 MCH 28.0 MCHC 33.3 RDW 20.2 H Plt Count 223 MPV 9.0 Neut % (Auto) 80.9 H Lymph % (Auto) 14.3 L [place] % (Auto) 2.2 Eos % (Auto) 2.3 Baso % (Auto) 0.3 Neut # 6.8 Lymph # 1.2 [place] # 0.2 Eos # 0.2 Baso # 0.0 Assessment & Plan - Assessment and Plan (Free Text) Plan: 37 y/o woman w/ pmh of moderate persistent asthma, menorrhagia, ALEX admitted due to an acute asthma exacerbation Asthma exacerbation ED Course: DuoNeb, Magnesium Sulfate 2gm IV, Solumedrol IV, CXR, O2 NC currently stable, improved, maintaining airway, alert and oriented VS: tachycardic, O2 sat 98% on O2 NC post treatment admit to tele O2 NC 2L cont. cont. 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 PATIENT TREATED IN ED WITH ALBUTEROL NEB, IV MAGNESIUM, YEFRI MEDROL WITH IMPROVEMENT. CASE DISCUSSED AT LENGTH WITH RESIDENT. WILL ADMIT TO OBS FOR FURTHER TREATMENT. Results - Vital Signs Recent Vital Signs: Last Vital Signs Temp 98.5 F 07/12/17 08:21 Pulse 92 H 07/12/17 08:21 Resp 18 07/12/17 08:21 BP 101/60 07/12/17 08:21 Pulse Ox 100 07/12/17 08:21 - Labs Result Diagrams: 07/12/17 02:30 07/12/17 02:30 Labs: Laboratory Results - last 24 hr 07/12/17 04:49 Urine Color Yellow Urine Clarity Clear Urine pH 6.0 Ur Specific [place] 1.012 Urine Protein Negative Urine Glucose (UA) Neg Urine Ketones Negative Urine Blood Negative Urine Nitrate Negative Urine Bilirubin Negative Urine Urobilinogen 0.2-1.0 Ur Leukocyte Esterase Neg Urine RBC (Auto) 2 Urine Microscopic WBC < 1 Ur Squamous Epith Cells < 1
[2017-07-12 02:59] LABS: ALB/GLOB RATIO 1.2 (1.0-2.1); ALKALINE PHOSPHATASE 67 U/L (38-126); ALT/SGPT 26 U/L (9-52); AST/SGOT 22 U/L (14-36); BILIRUBIN,TOTAL 0.4 mg/dl (0.2-1.3); BLOOD UREA NITROGEN 14 mg/dl (7-17); CALCIUM 9.8 mg/dL (8.4-10.2); CARBON DIOXIDE 23 mmol/L (22-30); CHLORIDE 108 mmol/L (98-107); GFR AFRICAN-AMERICAN > 60; GLUCOSE,RANDOM 129 mg/dL (65-105); POTASSIUM 4.1 MMOL/L (3.6-5.0); SODIUM 145 mmol/l (132-148); TOTAL PROTEIN 8.1 G/DL (6.3-8.2)
[2017-07-12 04:55] LABS: RBC URINE 2 /hpf (0-3); URINE BILIRUBIN NEGATIVE (NEGATIVE); URINE BLOOD NEGATIVE (NEGATIVE); URINE COLOR YELLOW (YELLOW); URINE GLUCOSE (UA) NEG (Normal); URINE KETONE NEGATIVE (NEGATIVE); URINE LEUKOCYTE ESTERASE NEG Leu/uL (Negative); URINE PROTEIN NEGATIVE (NEGATIVE); URINE UROBILINOGEN 0.2-1.0 mg/dL (0.2-1.0); WBC URINE < 1 /hpf (0-5)
[2017-07-12] MEDS: Albuterol 0.083% Inhal Sol (2.5 mg/3 mL) UD INH SCH ×2 (06:09→07:37)
[2017-07-12 06:14] VITALS: O2SAT 100
[2017-07-12 06:37] VITALS: BMI 24.0
[2017-07-12] MEDS ORDERED: Albuterol 0.083% Inhal Sol (2.5 mg/3 mL) UD INH SCH ×2 (08:00→12:00)
[2017-07-12 08:22] VITALS: BP 101/60; PULSE 92; RESP 18; TEMP 98.5
--- NOTE | 2017-07-12 08:52 | RAD ---
HISTORY: chest pain COMPARISON: 06/11/2017. FINDINGS: LUNGS: The lungs are well inflated and clear. PLEURA: No significant pleural effusion identified, no pneumothorax apparent. CARDIOVASCULAR: Normal. OSSEOUS STRUCTURES: No significant abnormalities. VISUALIZED UPPER ABDOMEN: Normal. OTHER FINDINGS: A round density in the right lower lobe is also identified on the prior examination and likely represents nipple shadow. IMPRESSION: No active pulmonary disease.
[2017-07-12] MEDS ORDERED: Fluticasone-Salmeterol 250-50mcg Diskus IH SCH (09:00)
--- NOTE | 2017-07-12 10:39 | CP.PCM.DIS ---
<Terence Parisi - Last Filed: 07/12/17 11:40> Provider - Provider Date of Admission: 07/12/17 02:31 Attending physician: Antonina Garcia MD Primary care physician: [facility] Time Spent in preparation of Discharge (in minutes): 30 Diagnosis - Discharge Diagnosis (1) Asthma exacerbation Status: Acute Hospital Course - Lab Results Lab Results: Most Recent Lab Values WBC 8.4 K/uL (4.8-10.8) 07/12/17 02:30 RBC 5.28 Mil/uL (3.80-5.20) H 07/12/17 02:30 Hgb 14.8 g/dL (12.0-16.0) 07/12/17 02:30 Hct 44.3 % (34.0-47.0) 07/12/17 02:30 MCV 84.0 fl (81.0-99.0) 07/12/17 02:30 MCH 28.0 pg (27.0-31.0) 07/12/17 02:30 MCHC 33.3 g/dL (33.0-37.0) 07/12/17 02:30 RDW 20.2 % (11.5-14.5) H 07/12/17 02:30 Plt Count 223 K/uL (130-400) 07/12/17 02:30 MPV 9.0 fl (7.2-11.7) 07/12/17 02:30 Neut % (Auto) 80.9 % (50.0-75.0) H 07/12/17 02:30 Lymph % (Auto) 14.3 % (20.0-40.0) L 07/12/17 02:30 Alexander % (Auto) 2.2 % (0.0-10.0) 07/12/17 02:30 Eos % (Auto) 2.3 % (0.0-4.0) 07/12/17 02:30 Baso % (Auto) 0.3 % (0.0-2.0) 07/12/17 02:30 Neut # 6.8 K/uL (1.8-7.0) 07/12/17 02:30 Lymph # 1.2 K/uL (1.0-4.3) 07/12/17 02:30 Alexander # 0.2 K/uL (0.0-0.8) 07/12/17 02:30 Eos # 0.2 K/uL (0.0-0.7) 07/12/17 02:30 Baso # 0.0 K/uL (0.0-0.2) 07/12/17 02:30 Sodium 145 mmol/l (132-148) 07/12/17 02:30 Potassium 4.1 MMOL/L (3.6-5.0) 07/12/17 02:30 Chloride 108 mmol/L (98-107) H 07/12/17 02:30 Carbon Dioxide 23 mmol/L (22-30) 07/12/17 02:30 Anion Gap 18 (10-20) 07/12/17 02:30 BUN 14 mg/dl (7-17) 07/12/17 02:30 Creatinine 0.6 mg/dL (0.7-1.2) L 07/12/17 02:30 Est GFR ( Amer) > 60 07/12/17 02:30 Est GFR (Non-Af Amer) > 60 07/12/17 02:30 Random Glucose 129 mg/dL (65-105) H 07/12/17 02:30 Calcium 9.8 mg/dL (8.4-10.2) 07/12/17 02:30 Total Bilirubin 0.4 mg/dl (0.2-1.3) 07/12/17 02:30 AST 22 U/L (14-36) 07/12/17 02:30 ALT 26 U/L (9-52) 07/12/17 02:30 Alkaline Phosphatase 67 U/L (38-126) 07/12/17 02:30 Total Protein 8.1 G/DL (6.3-8.2) 07/12/17 02:30 Albumin 4.5 g/dL (3.5-5.0) 07/12/17 02:30 Globulin 3.6 gm/dL (2.2-3.9) 07/12/17 02:30 Albumin/Globulin Ratio 1.2 (1.0-2.1) 07/12/17 02:30 Urine Color Yellow (YELLOW) 07/12/17 04:49 Urine Clarity Clear (Clear) 07/12/17 04:49 Urine pH 6.0 (5.0-8.0) 07/12/17 04:49 Ur Specific [place] 1.012 (1.003-1.030) 07/12/17 04:49 Urine Protein Negative mg/dL (NEGATIVE) 07/12/17 04:49 Urine Glucose (UA) Neg mg/dL (Normal) 07/12/17 04:49 Urine Ketones Negative mg/dL (NEGATIVE) 07/12/17 04:49 Urine Blood Negative (NEGATIVE) 07/12/17 04:49 Urine Nitrate Negative (NEGATIVE) 07/12/17 04:49 Urine Bilirubin Negative (NEGATIVE) 07/12/17 04:49 Urine Urobilinogen 0.2-1.0 mg/dL (0.2-1.0) 07/12/17 04:49 Ur Leukocyte Esterase Neg Price/uL (Negative) 07/12/17 04:49 Urine RBC (Auto) 2 /hpf (0-3) 07/12/17 04:49 Urine Microscopic WBC < 1 /hpf (0-5) 07/12/17 04:49 Ur Squamous Epith Cells < 1 /hpf (0-5) 07/12/17 04:49 - Hospital Course Hospital Course: 37 year old female w/ pmh of moderate persistent asthma, menorrhagia, ALEX admitted to observation due to an acute asthma exacerbation secondary to poor medication compliance. Treated with DuoNebs, Magnesium Sulfate 2gm IV, Solumedrol IV, and O2 NC. CXR showed no active disease. Patient improved significantly with treatment. No signs of infection. Patient to be discharged with 5 day course of prednisone therapy. Advair/Albuterol rx sent to pharmacy. Encouraged patient to comply with treatment and follow up with PCP. Discharge Exam - Head Exam Head Exam: ATRAUMATIC, NORMAL INSPECTION, NORMOCEPHALIC - Eye Exam Eye Exam: Normal appearance - Neck Exam Neck exam: Normal Inspection - Respiratory Exam Respiratory Exam: Clear to PA & Lateral, NORMAL BREATHING PATTERN, UNREMARKABLE. absent: Decreased Breath Sounds, Rales, Rhonchi, Wheezes, Respiratory Distress - Cardiovascular Exam Cardiovascular Exam: REGULAR RHYTHM, RRR, +S1, +S2 - GI/Abdominal Exam GI & Abdominal Exam: Normal Bowel Sounds, Soft. absent: Tenderness - Extremities Exam Extremities exam: normal inspection - Neurological Exam Neurological exam: Alert, Oriented x3 - Psychiatric Exam Psychiatric exam: Normal Affect, Normal Mood - Skin Skin Exam: Dry, Intact, Normal Color, Warm Discharge Plan - Discharge Medications Prescriptions: Albuterol 0.083% [Albuterol 0.083% Inhal Jayne (2.5 mg/3 ml) UD] 3 ml IH Q4 PRN # 50 vial PRN Reason: asthma Fluticasone/Salmeterol 250/50 [Advair Diskus 250/50] 1 dsk IH Q12 #60 puff Montelukast Sodium [Singulair] 10 mg PO QAM #14 tablet Prednisone 50 mg PO DAILY #4 tablet - Follow Up Plan Condition: FAIR Disposition: HOME/ ROUTINE Instructions: Asthma (DC) Additional Instructions: Follow up with PMD as scheduled 07/25/17 Use rx as prescribed. Return to ED for new/worsening symptoms. <Anali Carroll - Last Filed: 07/13/17 09:16> Provider - Provider Date of Admission: 07/12/17 02:31 Attending physician: Antonina Garcia MD Hospital Course - Lab Results Lab Results: Most Recent Lab Values WBC 8.4 K/uL (4.8-10.8) 07/12/17 02:30 RBC 5.28 Mil/uL (3.80-5.20) H 07/12/17 02:30 Hgb 14.8 g/dL (12.0-16.0) 07/12/17 02:30 Hct 44.3 % (34.0-47.0) 07/12/17 02:30 MCV 84.0 fl (81.0-99.0) 07/12/17 02:30 MCH 28.0 pg (27.0-31.0) 07/12/17 02:30 MCHC 33.3 g/dL (33.0-37.0) 07/12/17 02:30 RDW 20.2 % (11.5-14.5) H 07/12/17 02:30 Plt Count 223 K/uL (130-400) 07/12/17 02:30 MPV 9.0 fl (7.2-11.7) 07/12/17 02:30 Neut % (Auto) 80.9 % (50.0-75.0) H 07/12/17 02:30 Lymph % (Auto) 14.3 % (20.0-40.0) L 07/12/17 02:30 Alexander % (Auto) 2.2 % (0.0-10.0) 07/12/17 02:30 Eos % (Auto) 2.3 % (0.0-4.0) 07/12/17 02:30 Baso % (Auto) 0.3 % (0.0-2.0) 07/12/17 02:30 Neut # 6.8 K/uL (1.8-7.0) 07/12/17 02:30 Lymph # 1.2 K/uL (1.0-4.3) 07/12/17 02:30 Alexander # 0.2 K/uL (0.0-0.8) 07/12/17 02:30 Eos # 0.2 K/uL (0.0-0.7) 07/12/17 02:30 Baso # 0.0 K/uL (0.0-0.2) 07/12/17 02:30 Sodium 145 mmol/l (132-148) 07/12/17 02:30 Potassium 4.1 MMOL/L (3.6-5.0) 07/12/17 02:30 Chloride 108 mmol/L (98-107) H 07/12/17 02:30 Carbon Dioxide 23 mmol/L (22-30) 07/12/17 02:30 Anion Gap 18 (10-20) 07/12/17 02:30 BUN 14 mg/dl (7-17) 07/12/17 02:30 Creatinine 0.6 mg/dL (0.7-1.2) L 07/12/17 02:30 Est GFR ( Amer) > 60 07/12/17 02:30 Est GFR (Non-Af Amer) > 60 07/12/17 02:30 Random Glucose 129 mg/dL (65-105) H 07/12/17 02:30 Calcium 9.8 mg/dL (8.4-10.2) 07/12/17 02:30 Total Bilirubin 0.4 mg/dl (0.2-1.3) 07/12/17 02:30 AST 22 U/L (14-36) 07/12/17 02:30 ALT 26 U/L (9-52) 07/12/17 02:30 Alkaline Phosphatase 67 U/L (38-126) 07/12/17 02:30 Total Protein 8.1 G/DL (6.3-8.2) 07/12/17 02:30 Albumin 4.5 g/dL (3.5-5.0) 07/12/17 02:30 Globulin 3.6 gm/dL (2.2-3.9) 07/12/17 02:30 Albumin/Globulin Ratio 1.2 (1.0-2.1) 07/12/17 02:30 Urine Color Yellow (YELLOW) 07/12/17 04:49 Urine Clarity Clear (Clear) 07/12/17 04:49 Urine pH 6.0 (5.0-8.0) 07/12/17 04:49 Ur Specific [place] 1.012 (1.003-1.030) 07/12/17 04:49 Urine Protein Negative mg/dL (NEGATIVE) 07/12/17 04:49 Urine Glucose (UA) Neg mg/dL (Normal) 07/12/17 04:49 Urine Ketones Negative mg/dL (NEGATIVE) 07/12/17 04:49 Urine Blood Negative (NEGATIVE) 07/12/17 04:49 Urine Nitrate Negative (NEGATIVE) 07/12/17 04:49 Urine Bilirubin Negative (NEGATIVE) 07/12/17 04:49 Urine Urobilinogen 0.2-1.0 mg/dL (0.2-1.0) 07/12/17 04:49 Ur Leukocyte Esterase Neg Price/uL (Negative) 07/12/17 04:49 Urine RBC (Auto) 2 /hpf (0-3) 07/12/17 04:49 Urine Microscopic WBC < 1 /hpf (0-5) 07/12/17 04:49 Ur Squamous Epith Cells < 1 /hpf (0-5) 07/12/17 04:49 Discharge Exam - Skin Additional comments: ADDENDUM ATTENDING NOTE PATIENT SEEN AND EXAMINED. CASE DISCUSSED WITH RESIDENT. LUNGS CLEAR. PATIENT FEELS WELL ENOUGH TO GO HOME ON MEDS AND OUTPATIENT FOLLOW UP. AGREE WITH FINDINGS AND PLAN.
--- NOTE | 2017-07-14 11:10 | CARD ---
APPROVED REPORT EKG Measurement Heart [id number] <Conclusion> Sinus tachycardia Biatrial enlargement Abnormal ECG
== END 2017-07-12 11:28 | disposition home or self-care (01) ==
LOC: H.ER 02:09 → H.ERHOLD 02:31 → H.ICU/CCU 05:36
PROVIDERS: ADMIT Family Medicine Geriatric Medicine; ATTEND Family Medicine Geriatric Medicine
DX: J45.41 Moderate persistent asthma with (acute) exacerbation (principal); I12.0 Hypertensive chronic kidney disease with stage 5 chronic kidney disease or end stage renal disease; N18.6 End stage renal disease; E11.22 Type 2 diabetes mellitus with diabetic chronic kidney disease; D50.9 Iron deficiency anemia, unspecified; N92.0 Excessive and frequent menstruation with regular cycle; F43.10 Post-traumatic stress disorder, unspecified; F41.9 Anxiety disorder, unspecified; Z91.14 Patient's other noncompliance with medication regimen; Z87.891 Personal history of nicotine dependence; Z88.0 Allergy status to penicillin; Z87.01 Personal history of pneumonia (recurrent)
CPT/HCPCS: 71010; 80053; 81003; 81025; 85025; 87081; 94640; 96360; 96374; 99285; G0378; J2930

== ENCOUNTER 2017-07-29 07:05 | Day surgery (SDC) | payer MEDICAID ==
[2017-07-29 07:31] VITALS: BMI 21.0
[2017-07-29] MEDS ORDERED: Lactated Ringer's 1,000 ML IV ONE ×2 (08:06→10:38)
[2017-07-29] MEDS ORDERED: Lidocaine 4% (Laryng-O-Jet) Kit MM ONE (08:53)
[2017-07-29] MEDS ORDERED: ePHEDrine 50 mg/ml Inj ONE ×2 (08:53→09:52)
[2017-07-29] MEDS ORDERED: Succinylcholine 200 mg/10 ml Inj IV ONE (08:53)
[2017-07-29] MEDS ORDERED: Propofol 10 mg/ml Inj (20 ML) ONE (08:53)
[2017-07-29] MEDS ORDERED: Midazolam 2 MG/2 ML VIAL ONE (08:53)
[2017-07-29] MEDS ORDERED: Albuterol HFA 90 mcg/actuation (8 g) ONE (09:05)
[2017-07-29] MEDS ORDERED: Dexamethasone 4 mg/1 ml ONE (09:50)
[2017-07-29] MEDS ORDERED: HYDROmorphone 0.5 mg/0.5 ml ISec IVP PRN (11:00)
[2017-07-29] MEDS ORDERED: Lactated Ringer's 1,000 ML IV SCH (11:00)
[2017-07-29 12:26] VITALS: RESP 18
[2017-07-29 12:30] VITALS: O2SAT 100
[2017-07-29 14:10] VITALS: BP 116/78; PULSE 112; TEMP 98.5
--- NOTE | 2017-08-05 22:40 | OP ---
PROCEDURE DATE: 07/29/2017 PREOPERATIVE DIAGNOSES: Heavy menstrual bleeding and anemia. POSTOPERATIVE DIAGNOSES: Heavy menstrual bleeding and anemia. PROCEDURE: Hysteroscopy, D and C and endometrial ablation with NovaSure. COMPLICATIONS: None. ANESTHESIA: General. ESTIMATED BLOOD LOSS: 15 mL. PATHOLOGY: Endometrial curettings. DISPOSITION: Stable to recovery room. FINDINGS: Thickened endometrium was seen with the hysteroscope. Grossly normal tubal ostia visualized bilaterally. A well ablated endometrium was noted postprocedure and a normal size uterus with normal adnexa was found with bimanual exam under anesthesia. PROCEDURE: The patient was taken to the operating room where general anesthesia was given without difficulty. She was then prepped and draped in usual sterile fashion in the dorsal lithotomy position. A speculum was then placed into the vagina and the anterior lip of the cervix was grasped with single tooth tenaculum. The cervix was then serially dilated using Florian dilators to accommodate a 5 mm 30 degree hysteroscope. This was then inserted under direct visualization using normal saline as distension media. The uterine cavity was then viewed and the above findings were noted. The endometrium appeared thickened throughout and both ostia were seen and appeared to be grossly normal. The hysteroscope was then removed and a NovaSure endometrial ablation was then undertaken per nailing machine operator protocol. The device was opened and appeared to be intact prior to insertion. It was then inserted and the cavity length was calculated and found to be adequate for ablation, these were then entered on the device and the device was enabled and ablation was then undertaken for 70 seconds. The device was then withdrawn and inspection of the cavity again with the hysteroscope revealed an adequate ablation was undertaken. Prior to performing the ablation, a dilation and curettage was then performed using a sharp curette. All instruments were then removed. The patient was repositioned, awakened from anesthesia and transferred to recovery room in stable condition. There was no injury to the bowel, bladder, uterine perforation were noted. Guillermo Bragg MD
== END 2017-07-29 14:45 | disposition home or self-care (01) ==
LOC: H.OPSURG 07:05
PROVIDERS: ATTEND Obstetrics & Gynecology
DX: N93.9 Abnormal uterine and vaginal bleeding, unspecified (principal); J45.909 Unspecified asthma, uncomplicated; M79.1 Myalgia; F41.8 Other specified anxiety disorders; F43.10 Post-traumatic stress disorder, unspecified
CPT/HCPCS: 36415; 58558; 84702; 88305; J0330; J1100; J2001; J2250; J2405; J2704; J3010; J7030; J7120

== ENCOUNTER 2017-11-08 05:36 | Emergency (ER) | payer MEDICAID ==
[2017-11-08 05:37] VITALS: BMI 21.0
[2017-11-08 06:01] VITALS: BP 105/61; TEMP 97.8
[2017-11-08] MEDS ORDERED: Albuterol-Ipratrop 3 mg / 0.5 (3 ml) UD INH STA (06:07)
--- NOTE | 2017-11-08 06:12 | ED PDOC ---
HPI: Asthma Time Seen by Provider: 11/08/17 05:53 Chief Complaint (Nursing): Respiratory Distress Chief Complaint (Provider): my asthma is back History Per: Patient History/Exam Limitations: no limitations Onset/Duration Of Symptoms: Days (3), Gradual Current Symptoms Are (Timing): Still Present Associated Symptoms: Dyspnea, Cough, Chest Pain (tichtness) Precipitating Factors: Weather Change, URI Symptoms Severity: Moderate Additional Complaint(s): 37yo female hx asthma with prior hospitalizations but no intubations presents c/ o cough/SOB/ wheeze ongoing 3 days, using albuterol and advair without improvement. Past Medical History Reviewed: Historical Data, Nursing Documentation, Vital Signs Vital Signs: Last Vital Signs Temp 97.8 F 11/08/17 05:58 Pulse 100 H 11/08/17 05:58 Resp 22 11/08/17 05:58 BP 105/61 11/08/17 05:58 Pulse Ox 96 11/08/17 05:58 - Medical History PMH: Anemia, Anxiety, Arthritis, Asthma, Bronchitis, Depression, Gall Bladder Disease, Pneumonia, Post Traumatic Stress Disorder, End Stage Renal Disease Denies: Diabetes, Hepatitis, HIV, HTN, Chronic Kidney Disease, Seizures, Sexually Transmitted Disease - Surgical History Surgical History: - Family History Family History: States: Diabetes, Hypertension - Home Medications Home Medications: Ambulatory Orders Medication Instructions Recorded Albuterol HFA [Ventolin HFA 90 2 puff IH [id number] PRN #1 inhaler 05/21/17 mcg/actuation (8 g)] Cetirizine HCl [Zyrtec] 10 mg PO DAILY #30 05/21/17 Ferrous Sulfate 325 mg PO TID #90 tablet 05/21/17 Albuterol 0.083% [Albuterol 0.083% 3 ml IH Q4 PRN #50 vial 07/12/17 Inhal Jayne (2.5 mg/3 ml) UD] Fluticasone/Salmeterol 250/50 1 dsk IH Q12 #60 puff 07/12/17 [Advair Diskus 250/50] MedroxyPROGESTERone [Provera] 2.5 mg PO Q2W 07/12/17 Montelukast Sodium [Singulair] 10 mg PO QAM #14 tablet 07/12/17 Ibuprofen [Motrin Tab] 1 mg PO Q6 PRN 07/29/17 Albuterol 0.083% [Albuterol 0.083% 2.5 mg IH Q4 PRN #20 neb 11/08/17 Inhal Jayne (2.5 mg/3 ml) UD] Albuterol HFA [Ventolin HFA 90 1 - 2 puff IH Q4 PRN #1 inhaler 11/08/17 mcg/actuation (8 g)] Amoxicillin/Clavulanate [Augmentin 1 tab PO BID #14 tab 11/08/17 875 MG-125 MG] Prednisone 50 mg PO DAILY #4 tab 11/08/17 - Allergies Allergies/Adverse Reactions: Allergies Allergy/AdvReac Type Severity Reaction Status Date / Time seasonal Allergy Intermediate WHEEZING Uncoded 11/08/17 06:01 Review of Systems Constitutional: Negative for: Fever Eyes: Negative for: Pain ENT: Negative for: Ear Pain, Nose Pain Respiratory: Positive for: Cough, Shortness of Breath, Pleuritic Pain, Wheezing Gastrointestinal: Negative for: Nausea, Abdominal Pain Genitourinary Female: Negative for: Dysuria, Incontinence Musculoskeletal: Negative for: Neck Pain, Arm Pain Skin: Negative for: Rash, Lesions Neurological: Negative for: Weakness, Numbness Physical Exam - Reviewed Nursing Documentation Reviewed: Yes Vital Signs Reviewed: Yes - Physical Exam Appears: Positive for: Well, Non-toxic, No Acute Distress Head Exam: Positive for: ATRAUMATIC, NORMAL INSPECTION, NORMOCEPHALIC Skin: Positive for: Normal Color, Warm, DRY Eye Exam: Positive for: EOMI, Normal appearance, PERRL ENT: Positive for: Normal ENT Inspection Neck: Positive for: Normal, Painless ROM Cardiovascular/Chest: Positive for: Regular Rate, Rhythm Respiratory: Positive for: Wheezing, Respiratory Distress (mild). Negative for : Rhonchi Gastrointestinal/Abdominal: Positive for: Bowel Sounds, Soft. Negative for: Tenderness Back: Positive for: Normal Inspection Extremity: Positive for: Normal ROM. Negative for: Swelling Neurologic/Psych: Positive for: Alert, Oriented. Negative for: Motor/Sensory Deficits - Laboratory Results Result Diagrams: 11/08/17 06:00 11/08/17 06:00 - ECG O2 Sat by Pulse Oximetry: 96 Medical Decision Making Medical Decision Making: workup for asthma initiated 715am- patient feeling better, wants to go home. SPO2 98% No resp distress speaks full sentences +nasal congestion likely sinusitus, Rx augmentin, albuterol/ prednisone followup ENT Disposition - Clinical Impression Clinical Impression: Asthma exacerbation, Sinusitis - Patient ED Disposition Is Patient to be Admitted: No Counseled Patient/Family Regarding: Studies Performed, Diagnosis, Need For Followup, Rx Given - Disposition Referrals: Isaias Velazquez MD [Staff Provider] - Disposition: Routine/Home Disposition Time: 07:24 Condition: STABLE Prescriptions: Albuterol 0.083% [Albuterol 0.083% Inhal Jayne (2.5 mg/3 ml) UD] 2.5 mg IH Q4 PRN #20 neb PRN Reason: Wheezing Albuterol HFA [Ventolin HFA 90 mcg/actuation (8 g)] 1 - 2 puff IH Q4 PRN #1 inhaler PRN Reason: Shortness Of Breath Amoxicillin/Clavulanate [Augmentin 875 MG-125 MG] 1 tab PO BID #14 tab Prednisone 50 mg PO DAILY #4 tab Instructions: Asthma (ED), Sinusitis (ED) Forms: [employer] ([place])
[2017-11-08] MEDS ORDERED: Albuterol-Ipratrop 3 mg / 0.5 (3 ml) UD ONE (06:13)
[2017-11-08 06:27] VITALS: RESP 24
[2017-11-08 06:29] LABS: BASO # 0.1 K/uL (0.0-0.2); BASO % 0.8 % (0.0-2.0); EOS # 0.9 K/uL (0.0-0.7); EOS % 11.9 % (0.0-4.0); HEMATOCRIT 39.7 % (34.0-47.0); LYMPH # 2.1 K/uL (1.0-4.3); LYMPH % 27.2 % (20.0-40.0); MEAN CELL VOLUME 85.9 fl (81.0-99.0); MEAN CORPUSCULAR HGB CONC 33.7 g/dL (33.0-37.0); MEAN PLATELET VOLUME 8.7 fl (7.2-11.7); MONO # 0.4 K/uL (0.0-0.8); MONO % 5.2 % (0.0-10.0); NEUT # 4.3 K/uL (1.8-7.0); NEUT % 54.9 % (50.0-75.0); NRBC % 0.1 % (0.0-0.0); RED CELL DISTRIBUTION WIDTH 12.5 % (11.5-14.5); WHITE BLOOD COUNT 7.8 K/uL (4.8-10.8)
[2017-11-08 06:40] LABS: ALB/GLOB RATIO 1.2 (1.0-2.1); ALKALINE PHOSPHATASE 71 U/L (38-126); ALT/SGPT 29 U/L (9-52); AST/SGOT 21 U/L (14-36); BILIRUBIN,TOTAL 0.3 mg/dl (0.2-1.3); BLOOD UREA NITROGEN 8 mg/dl (7-17); CALCIUM 9.1 mg/dL (8.4-10.2); CARBON DIOXIDE 25 mmol/L (22-30); CHLORIDE 105 mmol/L (98-107); GFR AFRICAN-AMERICAN > 60; GLUCOSE,RANDOM 95 mg/dL (65-105); POTASSIUM 3.3 MMOL/L (3.6-5.0); SODIUM 140 mmol/l (132-148); TOTAL PROTEIN 7.1 G/DL (6.3-8.2)
[2017-11-08 07:25] VITALS: O2SAT 96
[2017-11-08 07:46] VITALS: PULSE 72
== END 2017-11-08 07:46 | disposition home or self-care (01) ==
LOC: H.ER 05:36
DX: J45.901 Unspecified asthma with (acute) exacerbation (principal); J32.9 Chronic sinusitis, unspecified; F32.9 Major depressive disorder, single episode, unspecified; F43.10 Post-traumatic stress disorder, unspecified; N18.6 End stage renal disease
CPT/HCPCS: 80053; 81025; 84484; 85025; 94640; 96374; 99283; J2930

== ENCOUNTER 2017-11-28 14:35 | Emergency (ER) | payer MEDICAID ==
[2017-11-28 14:35] VITALS: BMI 21.0
[2017-11-28] MEDS ORDERED: Albuterol-Ipratrop 3 mg / 0.5 (3 ml) UD ONE ×3 (14:46→15:40)
[2017-11-28] MEDS ORDERED: Albuterol-Ipratrop 3 mg / 0.5 (3 ml) UD INH STA ×3 (15:34→15:35)
[2017-11-28] MEDS ORDERED: Magnesium Sulfate 2 gm/50 ml 2 GM/50 ML BAG IVPB ONE (15:37)
[2017-11-28] MEDS ORDERED: Magnesium Sulfate 2 gm/50 ml 2 GM/50 ML BAG ONE (15:41)
--- NOTE | 2017-11-28 15:46 | ED PDOC ---
HPI: Asthma Time Seen by Provider: 11/28/17 15:05 Chief Complaint (Nursing): Shortness Of Breath Chief Complaint (Provider): Shortness of breath History Per: Patient History/Exam Limitations: no limitations Current Symptoms Are (Timing): Still Present Additional Complaint(s): 37 year old female with a past medical history of asthma and anemia who presents to the emergency department with a complaint of difficulty breathing and wheezing that started an hour prior to arrival. States she was walking in the rain and symptoms started out of nowhere because she did not inhale or smoke anything to trigger asthma. Reports taking singulair, advair, albuterol, and zyrtec with minimal relief. Denies any further medical complaints. Patient has been admitted for asthma exacerbation in the past but has never been intubated. Past Medical History Reviewed: Historical Data, Nursing Documentation, Vital Signs Vital Signs: Last Vital Signs Temp 98 F 11/28/17 14:37 Pulse 116 H 11/28/17 14:37 Resp 20 11/28/17 15:10 BP Pulse Ox 100 11/28/17 15:10 - Medical History PMH: Anemia, Anxiety, Arthritis, Asthma, Bronchitis, Depression, Gall Bladder Disease, Pneumonia, Post Traumatic Stress Disorder, End Stage Renal Disease Denies: Diabetes, Hepatitis, HIV, HTN, Chronic Kidney Disease, Seizures, Sexually Transmitted Disease - Surgical History Surgical History: Other surgeries: Tubal ligation - Family History Family History: States: Diabetes, Hypertension - Home Medications Home Medications: Ambulatory Orders Medication Instructions Recorded Ferrous Sulfate 325 mg PO TID #90 tablet 05/21/17 MedroxyPROGESTERone [Provera] 2.5 mg PO Q2W 07/12/17 Ibuprofen [Motrin Tab] 1 mg PO Q6 PRN 07/29/17 Albuterol 0.083% [Albuterol 0.083% 2.5 mg IH Q4 PRN #20 neb 11/08/17 Inhal Jayne (2.5 mg/3 ml) UD] Albuterol HFA [Ventolin HFA 90 1 - 2 puff IH Q4 PRN #1 inhaler 11/08/17 mcg/actuation (8 g)] Amoxicillin/Clavulanate [Augmentin 1 tab PO BID #14 tab 11/08/17 875 MG-125 MG] Albuterol 0.083% [Albuterol 0.083% 3 ml IH Q4 PRN #50 vial 11/28/17 Inhal Jayne (2.5 mg/3 ml) UD] Albuterol HFA [Ventolin HFA 90 2 puff IH [id number] PRN #1 inhaler 11/28/17 mcg/actuation (8 g)] Cetirizine HCl [Zyrtec] 10 mg PO DAILY #30 capsule 11/28/17 Fluticasone/Salmeterol 250/50 1 dsk IH Q12 #60 puff 11/28/17 [Advair Diskus 250/50] Montelukast Sodium [Singulair] 10 mg PO QAM #14 tablet 11/28/17 Prednisone 50 mg PO DAILY #4 tab 11/28/17 - Allergies Allergies/Adverse Reactions: Allergies Allergy/AdvReac Type Severity Reaction Status Date / Time seasonal Allergy Intermediate WHEEZING Uncoded 11/08/17 06:01 Review of Systems ROS Statement: Except As Marked, All Systems Reviewed And Found Negative (As per HPI, otherwise negative) Respiratory: Positive for: Shortness of Breath Physical Exam - Reviewed Nursing Documentation Reviewed: Yes Vital Signs Reviewed: Yes - Physical Exam Appears: Positive for: Non-toxic, No Acute Distress Head Exam: Positive for: NORMAL INSPECTION, NORMOCEPHALIC Skin: Positive for: Normal Color, Warm, Dry Eye Exam: Positive for: Normal appearance, EOMI, PERRL ENT: Positive for: Normal ENT Inspection. Negative for: Pharyngeal Erythema Neck: Positive for: Normal, Supple Cardiovascular/Chest: Positive for: Tachycardia (with regular rhythm). Negative for: Murmur Respiratory: Positive for: Accessory Muscle Use, Wheezing (mild), Respiratory Distress. Negative for: Normal Breath Sounds, Decreased Breath Sounds Gastrointestinal/Abdominal: Positive for: Normal Exam, Soft. Negative for: Tenderness Back: Positive for: Normal Inspection. Negative for: L CVA Tenderness, R CVA Tenderness Extremity: Positive for: Normal ROM. Negative for: Pedal Edema Neurologic/Psych: Positive for: Alert, Oriented (x3) - Laboratory Results Result Diagrams: 11/28/17 15:56 11/28/17 15:56 - ECG ECG: Positive for: Interpreted By Me, Viewed By Me ECG Rhythm: Positive for: Normal QRS, Normal ST Segment, Sinus Rhythm, Sinus Tachycardia. Negative for: ST/T Changes Rate: 109 O2 Sat by Pulse Oximetry: 100 (RA) Pulse Ox Interpretation: Normal Nebulizer Treatments/Peak Flow - Duonebs Number of Bronchodilator Doses given?: 3 - Steroid Treatment Steroid: IV - Clinical Response Clinical Response: Improved Medical Decision Making Medical Decision Making: Time: 1540 Initial Impression: Asthma Exacerbation Initial Plan: BMP CBC w. diff Duoneb 3 ml INH Duoneb 3 ml INH Duoneb 3 ml INH Magnesium Sulfate 2 gm in 50 ml IVPB Methylperdnisolone 125 mg IVP Reevaluation Scribe~Attestation: Documented by Laila Ho, acting as a scribe for Frederick Pickett MD. Provider Scribe~Attestation: All medical record entries made by the Scribe were at my direction and personally dictated by me. I have reviewed the chart and agree that the record accurately reflects my personal performance of the history, physical exam, medical decision making, and the department course for this patient. I have also personally directed, reviewed, and agree with the discharge instructions and disposition. Disposition - Clinical Impression Clinical Impression: Asthma - Patient ED Disposition Is Patient to be Admitted: No Doctor Will See Patient In The: Office Counseled Patient/Family Regarding: Studies Performed, Diagnosis, Need For Followup - Disposition Referrals: Spenser Martin MD [Staff Provider] - Disposition: Routine/Home Disposition Time: 18:08 Condition: GOOD Additional Instructions: Take your medications as instructed. Follow up with your PCP in 2-3 days. Prescriptions: Albuterol HFA [Ventolin HFA 90 mcg/actuation (8 g)] 2 puff IH [id number] PRN #1 inhaler PRN Reason: Shortness Of Breath Albuterol 0.083% [Albuterol 0.083% Inhal Jayne (2.5 mg/3 ml) UD] 3 ml IH Q4 PRN # 50 vial PRN Reason: asthma Cetirizine HCl [Zyrtec] 10 mg PO DAILY #30 capsule Fluticasone/Salmeterol 250/50 [Advair Diskus 250/50] 1 dsk IH Q12 #60 puff Montelukast Sodium [Singulair] 10 mg PO QAM #14 tablet Prednisone 50 mg PO DAILY #4 tab Instructions: Asthma (ED)
[2017-11-28 16:06] LABS: BASO # 0.1 K/uL (0.0-0.2); BASO % 1.1 % (0.0-2.0); EOS # 0.3 K/uL (0.0-0.7); EOS % 4.4 % (0.0-4.0); HEMOGLOBIN 13.5 g/dL (12.0-16.0); LYMPH # 1.6 K/uL (1.0-4.3); LYMPH % 23.5 % (20.0-40.0); MEAN CELL VOLUME 85.3 fl (81.0-99.0); MEAN CORPUSCULAR HEMOGLOBIN 27.7 pg (27.0-31.0); MEAN CORPUSCULAR HGB CONC 32.4 g/dL (33.0-37.0); MEAN PLATELET VOLUME 9.5 fl (7.2-11.7); MONO # 0.3 K/uL (0.0-0.8); MONO % 4.9 % (0.0-10.0); NEUT # 4.6 K/uL (1.8-7.0); NEUT % 66.1 % (50.0-75.0); NRBC % 0.3 % (0.0-0.0); RBC 4.87 Mil/uL (3.80-5.20); RED CELL DISTRIBUTION WIDTH 13.2 % (11.5-14.5); WHITE BLOOD COUNT 6.9 K/uL (4.8-10.8)
[2017-11-28 16:30] LABS: BLOOD UREA NITROGEN 6 mg/dl (7-17); CALCIUM 9.2 mg/dL (8.4-10.2); GFR AFRICAN-AMERICAN > 60; GFR NON-AFRICAN AMERICAN > 60
[2017-11-28 18:10] VITALS: BP 103/63; RESP 19; TEMP 98.6
[2017-11-28 18:15] VITALS: PULSE 109; O2SAT 100
== END 2017-11-28 18:30 | disposition home or self-care (01) ==
LOC: H.ER 14:35
DX: J45.901 Unspecified asthma with (acute) exacerbation (principal); N18.6 End stage renal disease; Z86.59 Personal history of other mental and behavioral disorders
CPT/HCPCS: 80048; 85025; 94640; 96374; 99284; J2405; J2930

== ENCOUNTER 2018-02-08 04:42 | Emergency (ER) | payer MEDICAID ==
[2018-02-08 04:42] VITALS: BMI 21.0
[2018-02-08 05:00] VITALS: O2SAT 98
[2018-02-08] MEDS ORDERED: Albuterol-Ipratrop 3 mg / 0.5 (3 ml) UD INH STA ×2 (05:04→05:34)
--- NOTE | 2018-02-08 05:26 | ED PDOC ---
HPI: SOB/CHF/COPD Time Seen by Provider: 02/08/18 05:04 Chief Complaint (Nursing): Respiratory Distress Chief Complaint (Provider): Respiratory distress History Per: Patient History/Exam Limitations: no limitations Onset/Duration Of Symptoms: Days (x3) Quality: Tightness Current Respiratory Medications: Albuterol, Other (Advair Diskus) Associated Symptoms: denies: Fever, Chest Pain Additional Complaint(s): Kaelyn Mcghee is a 38 year old female with a past medical history of asthma and ulcerative colitis, who is presenting to the ED with complains of wheezing and associated shortness of breath and cough, onset 3 days ago. Patient states that she used Advair Diskus and Albuterol Pump with no relief of symptoms. She also notes that she takes Zyrtec and Singulair for her asthma. Patient reports feeling tightness in her chest but denies any chest pain, fever , sputum, nausea, vomiting, or diarrhea. She offers no other medical complaints at this time. PMD: none provided Past Medical History Reviewed: Historical Data, Nursing Documentation, Vital Signs Vital Signs: Last Vital Signs Temp 97.6 F 02/08/18 04:51 Pulse 116 H 02/08/18 04:51 Resp 22 02/08/18 05:22 BP 105/53 L 02/08/18 04:51 Pulse Ox 98 02/08/18 05:31 - Medical History PMH: Anemia, Anxiety, Arthritis, Asthma, Bronchitis, Depression, Gall Bladder Disease, Pneumonia, Post Traumatic Stress Disorder, End Stage Renal Disease Denies: Diabetes, Hepatitis, HIV, HTN, Chronic Kidney Disease, Seizures, Sexually Transmitted Disease - Surgical History Surgical History: - Family History Family History: States: Diabetes, Hypertension - Social History Drugs: Denies - Home Medications Home Medications: Ambulatory Orders Medication Instructions Recorded Ferrous Sulfate 325 mg PO TID #90 tablet 05/21/17 MedroxyPROGESTERone [Provera] 2.5 mg PO Q2W 07/12/17 Ibuprofen [Motrin Tab] 1 mg PO Q6 PRN 07/29/17 Albuterol 0.083% [Albuterol 0.083% 2.5 mg IH Q4 PRN #20 neb 11/08/17 Inhal Jayne (2.5 mg/3 ml) UD] Albuterol HFA [Ventolin HFA 90 1 - 2 puff IH Q4 PRN #1 inhaler 11/08/17 mcg/actuation (8 g)] Amoxicillin/Clavulanate [Augmentin 1 tab PO BID #14 tab 11/08/17 875 MG-125 MG] Albuterol 0.083% [Albuterol 0.083% 3 ml IH Q4 PRN #50 vial 11/28/17 Inhal Jayne (2.5 mg/3 ml) UD] Albuterol HFA [Ventolin HFA 90 2 puff IH [id number] PRN #1 inhaler 11/28/17 mcg/actuation (8 g)] Cetirizine HCl [Zyrtec] 10 mg PO DAILY #30 capsule 11/28/17 Fluticasone Nasal [Flonase] 1 actuation NS DAILY #1 vial 11/28/17 Fluticasone/Salmeterol 250/50 1 dsk IH Q12 #60 puff 11/28/17 [Advair Diskus 250/50] Montelukast Sodium [Singulair] 10 mg PO QAM #14 tablet 11/28/17 Prednisone 50 mg PO DAILY #4 tab 11/28/17 predniSONE [predniSONE Tab] 60 mg PO QAM #12 tab 02/08/18 - Allergies Allergies/Adverse Reactions: Allergies Allergy/AdvReac Type Severity Reaction Status Date / Time seasonal Allergy Intermediate WHEEZING Uncoded 02/08/18 04:50 Review of Systems ROS Statement: Except As Marked, All Systems Reviewed And Found Negative Constitutional: Negative for: Fever Cardiovascular: Negative for: Chest Pain Respiratory: Positive for: Cough, Shortness of Breath, Wheezing. Negative for: Sputum Gastrointestinal: Negative for: Nausea, Vomiting, Diarrhea Physical Exam - Reviewed Nursing Documentation Reviewed: Yes Vital Signs Reviewed: Yes - Physical Exam Appears: Positive for: Non-toxic, In Acute Distress (mild) Head Exam: Positive for: ATRAUMATIC, NORMAL INSPECTION, NORMOCEPHALIC Skin: Positive for: Normal Color, Warm, Dry Eye Exam: Positive for: EOMI, Normal appearance, PERRL ENT: Positive for: Normal ENT Inspection Neck: Positive for: Normal, Painless ROM, Supple Cardiovascular/Chest: Positive for: Regular Rate, Rhythm. Negative for: Murmur Respiratory: Positive for: Wheezing (bilateral wheezing at bases), Other ( decreased air entry) Gastrointestinal/Abdominal: Positive for: Normal Exam, Soft. Negative for: Tenderness Back: Positive for: Normal Inspection. Negative for: L CVA Tenderness, R CVA Tenderness, Vertebral Tenderness Extremity: Positive for: Normal ROM. Negative for: Deformity, Swelling Neurologic/Psych: Positive for: Alert, Oriented. Negative for: Motor/Sensory Deficits - ECG O2 Sat by Pulse Oximetry: 98 (RA) Pulse Ox Interpretation: Normal Medical Decision Making Medical Decision Making: Time: 5:04 Impression: 38 year old female with acute exacerbation of asthma Initial Plan: --Duoneb 9 ml INH --Prednisone 60 mg PO --Peak Flow Pre/Post Tx 6:25 Patient notes a significant improvement in symptoms. Upon provider evaluation, patient requires no further treatment in the ER and is stable for discharge home. All questions were answered regarding her visit and she was encouraged to follow up with her PMD, and return if symptoms persist or worsen. Scribe Attestation: Documented by Darlyn Jones, acting as a scribe for Praveen Cardona MD. Provider Scribe Attestation: All medical record entries made by the Scribe were at my direction and personally dictated by me. I have reviewed the chart and agree that the record accurately reflects my personal performance of the history, physical exam, medical decision making, and the department course for this patient. I have also personally directed, reviewed, and agree with the discharge instructions and disposition. Disposition - Clinical Impression Clinical Impression: Asthma exacerbation - Patient ED Disposition Is Patient to be Admitted: No - Disposition Disposition: Routine/Home Disposition Time: 06:31 Condition: STABLE Prescriptions: predniSONE [predniSONE Tab] 60 mg PO QAM #12 tab Instructions: Asthma in Adults Forms: [id number] (Spanish)
[2018-02-08] MEDS ORDERED: DiphenhydrAMINE 50 mg/ml Inj ONE (05:49)
[2018-02-08 07:09] VITALS: BP 122/77; PULSE 87; RESP 16; TEMP 98.3
== END 2018-02-08 07:12 | disposition home or self-care (01) ==
LOC: H.ER 04:42
DX: J45.901 Unspecified asthma with (acute) exacerbation (principal); N18.6 End stage renal disease

== ENCOUNTER 2018-03-07 22:56 | Emergency (ER) | payer MEDICAID ==
[2018-03-07 23:05] VITALS: BMI 21.5
[2018-03-07 23:09] VITALS: BP 108/87; PULSE 87; RESP 18; TEMP 98.3; O2SAT 99
--- NOTE | 2018-03-07 23:40 | ED PDOC ---
HPI: General Adult Time Seen by Provider: 03/07/18 23:13 Chief Complaint (Nursing): Dizziness/Lightheaded Chief Complaint (Provider): Tired History Per: Patient History/Exam Limitations: no limitations Onset/Duration Of Symptoms: Days (2) Have you had recent travel within the past 21 days to any of the following countries: [place], [place], [place] or [place]?: No Additional Complaint(s): 38 yo female with history of anemia and asthma presents with feeling tired since yestyerday. Pt states she has been working a lot and her asthma was bad the last 3 days. Pt reports no wheezing or SOB today. PT states her children are at sleep over so she was able to be seen tonight. Pt states she also has unprotecrted intercourse last month and is concerned about HIV Past Medical History Vital Signs: Last Vital Signs Temp 98.3 F 03/07/18 23:05 Pulse 87 03/07/18 23:05 Resp 18 03/07/18 23:05 BP 108/87 03/07/18 23:05 Pulse Ox 99 03/07/18 23:40 - Medical History PMH: Anemia, Anxiety, Arthritis, Asthma, Bronchitis, Depression, Gall Bladder Disease, Pneumonia, Post Traumatic Stress Disorder, End Stage Renal Disease Denies: Diabetes, Hepatitis, HIV, HTN, Chronic Kidney Disease, Seizures, Sexually Transmitted Disease - Surgical History Surgical History: - Family History Family History: States: Diabetes, Hypertension - Home Medications Home Medications: Ambulatory Orders Medication Instructions Recorded Ferrous Sulfate 325 mg PO TID #90 tablet 05/21/17 MedroxyPROGESTERone [Provera] 2.5 mg PO Q2W 07/12/17 Ibuprofen [Motrin Tab] 1 mg PO Q6 PRN 07/29/17 Albuterol 0.083% [Albuterol 0.083% 2.5 mg IH Q4 PRN #20 neb 11/08/17 Inhal Jayne (2.5 mg/3 ml) UD] Albuterol HFA [Ventolin HFA 90 1 - 2 puff IH Q4 PRN #1 inhaler 11/08/17 mcg/actuation (8 g)] Amoxicillin/Clavulanate [Augmentin 1 tab PO BID #14 tab 11/08/17 875 MG-125 MG] Albuterol 0.083% [Albuterol 0.083% 3 ml IH Q4 PRN #50 vial 11/28/17 Inhal Jayne (2.5 mg/3 ml) UD] Albuterol HFA [Ventolin HFA 90 2 puff IH [id number] PRN #1 inhaler 11/28/17 mcg/actuation (8 g)] Cetirizine HCl [Zyrtec] 10 mg PO DAILY #30 capsule 11/28/17 Fluticasone Nasal [Flonase] 1 actuation NS DAILY #1 vial 11/28/17 Fluticasone/Salmeterol 250/50 1 dsk IH Q12 #60 puff 11/28/17 [Advair Diskus 250/50] Montelukast Sodium [Singulair] 10 mg PO QAM #14 tablet 11/28/17 Prednisone 50 mg PO DAILY #4 tab 11/28/17 predniSONE [predniSONE Tab] 60 mg PO QAM #12 tab 02/08/18 - Allergies Allergies/Adverse Reactions: Allergies Allergy/AdvReac Type Severity Reaction Status Date / Time seasonal Allergy Intermediate WHEEZING Uncoded 02/08/18 04:50 - Laboratory Results Result Diagrams: 03/07/18 23:52 03/07/18 23:52 - ECG O2 Sat by Pulse Oximetry: 99 Medical Decision Making Medical Decision Making: Discussed abnormal LFT with patient and given a copy of her labs for f/u with PMD. No anemia. No HIV. Disposition - Clinical Impression Clinical Impression: Generalized weakness - Patient ED Disposition Is Patient to be Admitted: No - Disposition Disposition: Routine/Home Disposition Time: 01:04 Condition: GOOD Instructions: Weakness (ED) Forms: [employer] (Fijian), [facility] ED School/Work Excuse
[2018-03-08 00:06] LABS: BASO # 0.1 K/uL (0.0-0.2); BASO % 0.8 % (0.0-2.0); EOS # 1.1 K/uL (0.0-0.7); HEMOGLOBIN 12.6 g/dL (12.0-16.0); LYMPH # 2.1 K/uL (1.0-4.3); LYMPH % 25.9 % (20.0-40.0); MEAN CORPUSCULAR HEMOGLOBIN 25.1 pg (27.0-31.0); MEAN CORPUSCULAR HGB CONC 32.7 g/dL (33.0-37.0); MEAN PLATELET VOLUME 9.1 fl (7.2-11.7); MONO # 0.4 K/uL (0.0-0.8); MONO % 4.7 % (0.0-10.0); NEUT # 4.5 K/uL (1.8-7.0); NEUT % 55.6 % (50.0-75.0); NRBC % 0.1 % (0.0-0.0); RBC 4.99 Mil/uL (3.80-5.20); RED CELL DISTRIBUTION WIDTH 14.6 % (11.5-14.5); WHITE BLOOD COUNT 8.1 K/uL (4.8-10.8)
[2018-03-08 00:21] LABS: CALCIUM 9.4 mg/dL (8.4-10.2); GFR AFRICAN-AMERICAN > 60; GFR NON-AFRICAN AMERICAN > 60
[2018-03-08 00:27] LABS: ALB/GLOB RATIO 1.1 (1.0-2.1); ALBUMIN 4.1 g/dL (3.5-5.0); ALT/SGPT < 6 U/L (9-52); AST/SGOT 44 U/L (14-36); BLOOD UREA NITROGEN 6 mg/dl (7-17)
== END 2018-03-08 02:30 | disposition home or self-care (01) ==
LOC: H.ER 22:56
DX: R53.1 Weakness (principal); D64.9 Anemia, unspecified; F32.9 Major depressive disorder, single episode, unspecified; F43.10 Post-traumatic stress disorder, unspecified; J45.909 Unspecified asthma, uncomplicated; N18.6 End stage renal disease

== ENCOUNTER 2018-03-15 20:07 | Observation (INO) | payer MEDICAID ==
[2018-03-15] MEDS ORDERED: Albuterol-Ipratrop 3 mg / 0.5 (3 ml) UD IH STA (20:18)
--- NOTE | 2018-03-15 20:28 | ED PDOC ---
HPI: SOB/CHF/COPD Time Seen by Provider: 03/15/18 20:12 Chief Complaint (Nursing): Respiratory Distress Chief Complaint (Provider): shortness of breath, Wheezing, Cough History Per: Patient History/Exam Limitations: no limitations Onset/Duration Of Symptoms: Hrs Current Symptoms Are (Timing): Still Present Associated Symptoms: Fever, Productive Cough. denies: Chills, Chest Pain, Dizziness Additional Complaint(s): 38 year old male with a past medical history of asthma is brought into the emergency room by ambulance for wheezing, shortness of breath and cough. Patient states that his symptoms worsened this morning and he is has een using his inhaler but it has offered him no relief. Denies fevers, chills. Patient does note post nasal drip and sinus pressure. Of note : Patient received 2 nebulizers and 125 mg solumedrol en route with improvement prior to arrival to ED Past Medical History Reviewed: Historical Data, Nursing Documentation, Vital Signs Vital Signs: Last Vital Signs Temp 98.3 F 03/15/18 20:15 Pulse 96 H 03/15/18 22:11 Resp 22 03/15/18 20:48 BP 108/65 03/15/18 20:15 Pulse Ox 100 03/15/18 22:11 - Medical History PMH: Anemia, Anxiety, Arthritis, Asthma, Bronchitis, Depression, Gall Bladder Disease, Pneumonia, Post Traumatic Stress Disorder, End Stage Renal Disease Denies: Diabetes, Hepatitis, HIV, HTN, Chronic Kidney Disease, Seizures, Sexually Transmitted Disease - Surgical History Surgical History: No Surg Hx, - Family History Family History: States: Diabetes, Hypertension - Home Medications Home Medications: Ambulatory Orders Medication Instructions Recorded Ferrous Sulfate 325 mg PO TID #90 tablet 05/21/17 MedroxyPROGESTERone [Provera] 2.5 mg PO Q2W 07/12/17 Ibuprofen [Motrin Tab] 1 mg PO Q6 PRN 07/29/17 Albuterol 0.083% [Albuterol 0.083% 2.5 mg IH Q4 PRN #20 neb 11/08/17 Inhal Jayne (2.5 mg/3 ml) UD] Albuterol HFA [Ventolin HFA 90 1 - 2 puff IH Q4 PRN #1 inhaler 11/08/17 mcg/actuation (8 g)] Amoxicillin/Clavulanate [Augmentin 1 tab PO BID #14 tab 11/08/17 875 MG-125 MG] Albuterol 0.083% [Albuterol 0.083% 3 ml IH Q4 PRN #50 vial 11/28/17 Inhal Jayne (2.5 mg/3 ml) UD] Albuterol HFA [Ventolin HFA 90 2 puff IH [id number] PRN #1 inhaler 11/28/17 mcg/actuation (8 g)] Cetirizine HCl [Zyrtec] 10 mg PO DAILY #30 capsule 11/28/17 Fluticasone Nasal [Flonase] 1 actuation NS DAILY #1 vial 11/28/17 Fluticasone/Salmeterol 250/50 1 dsk IH Q12 #60 puff 11/28/17 [Advair Diskus 250/50] Montelukast Sodium [Singulair] 10 mg PO QAM #14 tablet 11/28/17 Prednisone 50 mg PO DAILY #4 tab 11/28/17 predniSONE [predniSONE Tab] 60 mg PO QAM #12 tab 02/08/18 - Allergies Allergies/Adverse Reactions: Allergies Allergy/AdvReac Type Severity Reaction Status Date / Time seasonal Allergy Intermediate WHEEZING Uncoded 03/15/18 20:15 Review of Systems ROS Statement: Except As Marked, All Systems Reviewed And Found Negative Constitutional: Negative for: Fever Respiratory: Positive for: Cough, Shortness of Breath, Wheezing Physical Exam - Reviewed Nursing Documentation Reviewed: Yes Vital Signs Reviewed: Yes - Physical Exam Appears: Positive for: Non-toxic, No Acute Distress Head Exam: Positive for: ATRAUMATIC, NORMAL INSPECTION Skin: Positive for: Normal Color, Warm, Dry. Negative for: Rash Eye Exam: Positive for: Normal appearance, EOMI, PERRL. Negative for: Nystagmus ENT: Positive for: Normal ENT Inspection, Other (No sinus tenderness). Negative for: Nasal Congestion, Tonsillar Exudate, Tonsillar Swelling Neck: Positive for: Normal, Painless ROM, Supple Cardiovascular/Chest: Positive for: Chest Non Tender, Tachycardia (regular rhythm). Negative for: Murmur Respiratory: Positive for: Decreased Breath Sounds, Wheezing (mild expitory). Negative for: Rales, Rhonchi, Respiratory Distress Gastrointestinal/Abdominal: Positive for: Normal Exam, Bowel Sounds, Soft. Negative for: Tenderness, Mass, Guarding, Rebound Back: Positive for: Normal Inspection. Negative for: L CVA Tenderness, R CVA Tenderness Extremity: Positive for: Normal ROM. Negative for: Tenderness, Deformity, Swelling Neurologic/Psych: Positive for: Alert, Oriented, Gait. Negative for: Motor/ Sensory Deficits - Laboratory Results Result Diagrams: 03/15/18 22:00 - ECG O2 Sat by Pulse Oximetry: 100 (RA) Pulse Ox Interpretation: Normal Medical Decision Making Medical Decision Makin Initial Impression 38 year old female presenting with shortness of breath and wheezing Initial Plan: * EKG * Upreg * Udip * CMP * CBC * CXR * Albuterol 3 mL IH * Peak Flow * Reevaluation Documented by Safia Domínguez acting as a scribe for Palmer Acevedo MD. All medical record entries made by the Scribe were at my direction and personally dictated by me. I have reviewed the chart and agree that the record accurately reflects my personal performance of the history, physical exam, medical decision making, and the department course for this patient. I have also personally directed, reviewed, and agree with the discharge instructions and disposition. Disposition - Clinical Impression Clinical Impression: Asthma, Sinusitis - Patient ED Disposition Is Patient to be Admitted: Yes - Disposition Disposition Time: 22:35 Condition: FAIR Forms: [employer] (Macedonian) - Pt Status Changed To: Hospital Disposition Of: Observation - POA Present On Arrival: None
[2018-03-15] MEDS ORDERED: Albuterol-Ipratrop 3 mg / 0.5 (3 ml) UD ONE (20:33)
[2018-03-15 21:34] VITALS: BMI 22.4
[2018-03-15 22:22] LABS: BASO % 0.4 % (0.0-2.0); EOS # 0.1 K/uL (0.0-0.7); EOS % 0.9 % (0.0-4.0); LYMPH # 0.8 K/uL (1.0-4.3); LYMPH % 7.4 % (20.0-40.0); MEAN CELL VOLUME 78.1 fl (81.0-99.0); MEAN CORPUSCULAR HEMOGLOBIN 24.9 pg (27.0-31.0); MEAN CORPUSCULAR HGB CONC 31.9 g/dL (33.0-37.0); MEAN PLATELET VOLUME 9.1 fl (7.2-11.7); MONO # 0.2 K/uL (0.0-0.8); MONO % 2.1 % (0.0-10.0); NEUT # 9.2 K/uL (1.8-7.0); NEUT % 89.2 % (50.0-75.0); PLATELET COUNT 250 K/uL (130-400); RED CELL DISTRIBUTION WIDTH 14.2 % (11.5-14.5); WHITE BLOOD COUNT 10.3 K/uL (4.8-10.8)
[2018-03-15] MEDS ORDERED: Amoxicillin-Clav 875-125 mg Tab PO STA (22:33)
[2018-03-15 22:46] LABS: ALB/GLOB RATIO 1.2 (1.0-2.1); ALT/SGPT 29 U/L (9-52); AST/SGOT 21 U/L (14-36); BLOOD UREA NITROGEN 11 mg/dl (7-17); GFR AFRICAN-AMERICAN > 60; GFR NON-AFRICAN AMERICAN > 60
--- NOTE | 2018-03-15 23:10 | CP.PCM.HP ---
History of Present Illness - History of Present Illness History of Present Illness: CC: "Tequila been wheezing more than normal and today it got really bad" 38 y/o female with a PMHx of uncontrolled asthma (unspecified severity) presented via EMS for acute asthma exacerbation. Pt reports she has been wheezing more than normal the past several days, and today at [facility] it got out of hand causing her to start using her nebulizer every 1 hour for 4 hours. She also took Benadryl, Zytrec, Singulair w/o any improvement. She began feeling more shortness of breath with associated chest tightness and dry cough despite usage of treatments and she called for EMS. In the field, she received 2 nebulizer treatments as well as a dose of 125mg Solu-medrol. She thinks her asthma has been exacerbated due to feeling a post nasal drip and increased sinus pressure. Denies fever/chills, sputum production, N/V/D, urinary symptoms , diaphoresis. PMD: [facility], last visit 07/2017 PMHx: asthma, monthly ER visits since Oct 2017, fibroids s/p ablation 07/2017. Meds: as per med rec, confirmed in eCW ALL: NKDA, seasonal PsurgHx: x3, endometrial ablation LMP: 03/12/2018, regular FamilyHx: HTN and DM in parents, only child with asthma SocialHx: denies ETOH/Tobacco/drug abuse Code Status: full code ED Course: Vitals: T: 98.3 F, BP: 108/65, HR: 111, RR: 20, POX: 100% RA Labs: CBC: no leukocytosis CMP: hypokalemia Imaging: CXR: no infiltrate EKG Meds: Duo-Neb x2 (x2 in field) 125mg Solu-medrol given in field Augmentin 1 dose Present on Admission - Present on Admission Any Indicators Present on Admission: No History of DVT/PE: No History of Uncontrolled Diabetes: No Review of Systems - Constitutional Constitutional: absent: As Per HPI, Anorexia, Chills, Daytime Sleepiness, Excessive Sweating, Fatigue, Fever, Frequent Falls, Headache, Increased Appetite , Lethargy, Malaise, Night Sweats, Snoring, Sleep Apnea, Weight Gain, Weight Loss, Weakness, Other - EENT Eyes: absent: As Per HPI, Blind Spots, Blurred Vision, Change in Vision, Decreased Night Vision, Diplopia, Discharge, Dry Eye, Exophthalmos, Floaters, Irritation, Itchy Eyes, Loss of Peripheral Vision, Pain, Photophobia, Requires Corrective Lenses, Sees Flashes, Spots in Vision, Tunnel Vision, Other Visual Disturbances, Loss of Vision, Other Ears: absent: As Per HPI, Decreased Hearing, Ear Discharge, Ear Pain, Tinnitus, Abnormal Hearing, Disequilibrium, Dizziness, Other Nose/Mouth/Throat: Nasal Congestion, Nasal Discharge, Post Nasal Drip, Sinus Pain. absent: As Per HPI, Epistaxis, Nasal Obstruction, Nasal Trauma, Nose Pain , Sinus Pressure, Bleeding Gums, Change in Voice, Dental Pain, Dry Mouth, Dysphagia, Halitosis, Hoarsness, Lip Swelling, Mouth Lesions, Mouth Pain, Odynophagia, Sore Throat, Throat Swelling, Tongue Swelling, Facial Pain, Neck Pain, Neck Mass, Other - Cardiovascular Cardiovascular: absent: As Per HPI, Acrocyanosis, Chest Pain, Chest Pain at Rest , Chest Pain with Activity, Claudication, Diaphoresis, Dyspnea, Dyspnea on Exertion, Edema, Irregular Heart Rhythm, Pain Radiating to Arm/Neck/Jaw, Leg Edema, Leg Ulcers, Lightheadedness, Orthopnea, Palpitations, Paroxysmal Nocturnal Dyspnea, Pedal Edema, Radiating Pain, Rapid Heart Rate, Slow Heart Rate, Syncope, Other - Respiratory Respiratory: Cough, Dyspnea on Exertion, Wheezing. absent: As Per HPI, Dyspnea , Hemoptysis, Snoring, Stridor, Pain on Inspiration, Chest Congestion, Excessive Mucous Production, Change in Mucous Color, Pain with Coughing, Other - Gastrointestinal Gastrointestinal: absent: As Per HPI, Abdominal Pain, Belching, Bloating, Change in Bowel Habits, Change in Stool Character, Coffee Ground Emesis, Constipation, Cramping, Diarrhea, Dyspepsia, Dysphagia, Early Satiety, Excessive Flatus, Fecal Incontinence, Heartburn, Hematemesis, Hematochezia, Loose Stools, Melena, Nausea, Odynophagia, Temesmus, Vomiting, Other - Musculoskeletal Musculoskeletal: absent: As Per HPI, Abnormal Gait, Arthralgias, Atrophy, Back Pain, Deformity, Joint Swelling, Limited Range of Motion, Loss of Height, Muscle Cramps, Muscle Weakness, Myalgias, Neck Pain, Numbness, Radiating Pain into Limb, Stiffness, Tingling, Other - Neurological Neurological: absent: As Per HPI, Abnormal Gait, Abnormal Hearing, Abnormal Movements, Abnormal Speech, Behavioral Changes, Burning Sensations, Confusion, Convulsions, Disequilibrium, Dizziness, Numbness, Focal Weakness, Frequent Falls , Headaches, Lack of Coordination, Loss of Vision, Memory Loss, Paresthesias, Radicular Pain, Restless Legs, Sensory Deficit, Syncope, Tingling, Tremor, Vertigo, Weakness, Other Visual Disturbances, Other Past Patient History - Infectious Disease Hx of Infectious Diseases: None - Tetanus Immunizations Tetanus Immunization: Unknown - Past Medical History & Family History Past Medical History?: Yes Past Family History: Reviewed and not pertinent - Past Social History Smoking Status: Never Smoked Alcohol: None Drugs: Denies Home Situation {Lives}: With Family - CARDIAC Hx Hypertension: No - PULMONARY Hx Asthma: Yes Hx Bronchitis: Yes Hx Pneumonia: Yes - NEUROLOGICAL Hx Seizures: No - HEENT Hx HEENT Problems: No Hx Blind: No Other/Comment: glasses at home - RENAL Hx Chronic Kidney Disease: No - ENDOCRINE/METABOLIC Hx Endocrine Disorders: No - HEMATOLOGICAL/ONCOLOGICAL Hx Anemia: Yes Hx Human Immunodeficiency Virus (HIV): No - INTEGUMENTARY Hx Dermatological Problems: No - MUSCULOSKELETAL/RHEUMATOLOGICAL Hx Arthritis: Yes - GASTROINTESTINAL Hx Gall Bladder Disease: Yes - GENITOURINARY/GYNECOLOGICAL Hx Sexually Transmitted Disorders: No - PSYCHIATRIC Hx Anxiety: Yes Hx Depression: Yes Hx Post Traumatic Stress Disorder: Yes - SURGICAL HISTORY Hx Surgeries: Yes Hx Section: Yes (x3) Hx Tubal Ligation: Yes - ANESTHESIA Hx Anesthesia: Yes Hx Anesthesia Reactions: No Hx Malignant Hyperthermia: No Meds Allergies/Adverse Reactions: Allergies Allergy/AdvReac Type Severity Reaction Status Date / Time seasonal Allergy Intermediate WHEEZING Uncoded 03/15/18 20:15 Physical Exam - Constitutional Appears: Non-toxic, No Acute Distress Additional comments: sitting in high fowlers, SOB while talking, difficulty completing full sentances w/o SOB, comfortable when relaxing - Head Exam Head Exam: ATRAUMATIC, NORMAL INSPECTION, NORMOCEPHALIC - Eye Exam Eye Exam: EOMI. absent: Conjunctival injection, Scleral icterus Pupil Exam: PERRL - ENT Exam ENT Exam: Mucous Membranes Moist, Normal Oropharynx Additional comments: mild maxillary sinus tenderness. No erythema/edema. - Neck Exam Neck exam: Positive for: Full Rom, Normal Inspection. Negative for: Lymphadenopathy - Respiratory Exam Respiratory Exam: Accessory Muscle Use, Clear to Auscultation Bilateral (good air entry b/l, no wheezing appreciated on examination ). absent: Decreased Breath Sounds, Rales, Rhonchi, Wheezes, Respiratory Distress, NORMAL BREATHING PATTERN (tachypnea ) - Cardiovascular Exam Cardiovascular Exam: Tachycardia, RRR, +S1, +S2. absent: Gallop, REGULAR RHYTHM , JVD, Rubs, Systolic Murmur - GI/Abdominal Exam GI & Abdominal Exam: Normal Bowel Sounds, Soft. absent: Pulsatile Mass, Rebound , Rigid, Tenderness - Extremities Exam Extremities exam: Positive for: normal capillary refill (<2s), normal inspection , pedal pulses present. Negative for: pedal edema, tenderness - Neurological Exam Neurological exam: Alert, CN II-XII Intact, Normal Gait, Oriented x3, Reflexes Normal - Psychiatric Exam Psychiatric exam: Normal Affect, Normal Mood Additional comments: no agitation, cooperative with exam, pleasant mood - Skin Skin Exam: Dry, Intact, Normal Color, Warm Results - Vital Signs Recent Vital Signs: Last Vital Signs Temp 98.2 F 03/15/18 22:43 Pulse 100 H 03/15/18 22:43 Resp 21 03/15/18 22:43 BP 115/44 L 03/15/18 22:43 Pulse Ox 98 03/15/18 22:43 - Labs Result Diagrams: 03/15/18 22:00 03/15/18 22:00 Labs: Laboratory Results - last 24 hr 03/15/18 03/15/18 22:00 22:00 WBC 10.3 RBC 4.80 Hgb 12.0 Hct 37.5 MCV 78.1 L MCH 24.9 L MCHC 31.9 L RDW 14.2 Plt Count 250 MPV 9.1 Neut % (Auto) 89.2 H Lymph % (Auto) 7.4 L [facility] % (Auto) 2.1 Eos % (Auto) 0.9 Baso % (Auto) 0.4 Neut # (Auto) 9.2 H Lymph # (Auto) 0.8 L [facility] # (Auto) 0.2 Eos # (Auto) 0.1 Baso # (Auto) 0.0 Sodium 142 Potassium 3.4 L Chloride 100 Carbon Dioxide 23 Anion Gap 22 H BUN 11 Creatinine 0.7 Est GFR ( Amer) > 60 Est GFR (Non-Af Amer) > 60 Random Glucose 109 H Calcium 9.0 Total Bilirubin 0.3 AST 21 ALT 29 Alkaline Phosphatase 71 Total Protein 7.4 Albumin 4.0 Globulin 3.4 Albumin/Globulin Ratio 1.2 Assessment & Plan - Assessment and Plan (Free Text) Assessment: 38 y/o female with PMHx of asthma (unspecified severity) admitted for acute asthma exacerbation. Plan: 1) Acute Asthma Exacerbation -uncontrolled asthma, poor outpatient adherence -multiple ED visits, almost monthly, no hx of exacerbation requiring Intubation , however pt reports ICU admission before -no purulent sputum or nasal discharge -CBC wnl -POX 100% on RA -s/p Duo-neb x4 -s/p 125mg Solu-medrol -c/w Albuterol RQID -PFTs pre/post tx -supplement O2 via NC @ 2L to keep POX >92% PRN -monitor vitals 2) Acute Sinusitis -s/p Single dose of Augmentin in ED -likely viral in etiology based on hx <10 days, no purulent secretions -monitor, symptomatic treatment 3) Hypokalemia -3.4 -likley secondary to albuterol treatments -40 meq KCl tabs -repeat BMP in AM 4) Diet -regular diet 5) DVT Prophylaxis -low risk -ambulation 6) Code Status -full code
[2018-03-15] MEDS ORDERED: methylPREDNISolone 125 MG in Sodium Chloride 0.9% 50 ML IVPB ONE (23:14)
[2018-03-15] MEDS ORDERED: Potassium Chloride 20 mEq ER Tab PO ONE (23:14)
[2018-03-15 23:16] LABS: EOSINOPHIL 1 % (0-7); LYMPHOCYTE 5 % (20-50); MONOCYTE 1 % (0-10); NEUTROPHIL 93 % (42-75); TOTAL CELLS COUNTED 100
[2018-03-15 23:18] LABS: HYPOCHROMIC SLIGHT; MICROCYTOSIS SLIGHT; SPHEROCYTES SLIGHT; STOMATOCYTES SLIGHT
[2018-03-15 23:19] LABS: PLATELET ESTIMATE NORMAL (NORMAL)
[2018-03-16] MEDS ORDERED: Albuterol-Ipratrop 3 mg / 0.5 (3 ml) UD INH SCH (00:01)
[2018-03-16] MEDS: Albuterol 0.083% Inhal Sol (2.5 mg/3 mL) UD INH SCH ×3 (01:11→07:58)
[2018-03-16 06:27] VITALS: RESP 19; O2SAT 98
[2018-03-16 06:48] LABS: BLOOD UREA NITROGEN 11 mg/dl (7-17); CALCIUM 9.6 mg/dL (8.4-10.2); GFR AFRICAN-AMERICAN > 60; GFR NON-AFRICAN AMERICAN > 60
[2018-03-16 07:40] VITALS: BP 103/65; PULSE 75; TEMP 97.8
--- NOTE | 2018-03-16 07:58 | RAD ---
HISTORY: sob COMPARISON: Chest radiograph 07/12/2017. TECHNIQUE: Chest PA and lateral FINDINGS: LUNGS: No active pulmonary disease. PLEURA: No significant pleural effusion identified. No pneumothorax apparent. CARDIOVASCULAR: Normal. OSSEOUS STRUCTURES: No significant abnormalities. VISUALIZED UPPER ABDOMEN: Normal. OTHER FINDINGS: None. IMPRESSION: No interval acute cardiopulmonary disease appreciated.
[2018-03-16] MEDS ORDERED: Albuterol-Ipratrop 3 mg / 0.5 (3 ml) UD INH PRN (11:50)
--- NOTE | 2018-03-16 13:37 | CP.PCM.DIS ---
Provider - Provider Date of Admission: 03/15/18 22:32 Attending physician: Antonina Garcia MD Time Spent in preparation of Discharge (in minutes): 30 Diagnosis - Discharge Diagnosis (1) Asthma exacerbation Status: Resolved (2) Sinusitis Status: Chronic Hospital Course - Lab Results Lab Results: Most Recent Lab Values WBC 10.3 K/uL (4.8-10.8) 03/15/18 22:00 RBC 4.80 Mil/uL (3.80-5.20) 03/15/18 22:00 Hgb 12.0 g/dL (12.0-16.0) 03/15/18 22:00 Hct 37.5 % (34.0-47.0) 03/15/18 22:00 MCV 78.1 fl (81.0-99.0) L 03/15/18 22:00 MCH 24.9 pg (27.0-31.0) L 03/15/18 22:00 MCHC 31.9 g/dL (33.0-37.0) L 03/15/18 22:00 RDW 14.2 % (11.5-14.5) 03/15/18 22:00 Plt Count 250 K/uL (130-400) 03/15/18 22:00 MPV 9.1 fl (7.2-11.7) 03/15/18 22:00 Neut % (Auto) 89.2 % (50.0-75.0) H 03/15/18 22:00 Lymph % (Auto) 7.4 % (20.0-40.0) L 03/15/18 22:00 [place] % (Auto) 2.1 % (0.0-10.0) 03/15/18 22:00 Eos % (Auto) 0.9 % (0.0-4.0) 03/15/18 22:00 Baso % (Auto) 0.4 % (0.0-2.0) 03/15/18 22:00 Neut # (Auto) 9.2 K/uL (1.8-7.0) H 03/15/18 22:00 Lymph # (Auto) 0.8 K/uL (1.0-4.3) L 03/15/18 22:00 [place] # (Auto) 0.2 K/uL (0.0-0.8) 03/15/18 22:00 Eos # (Auto) 0.1 K/uL (0.0-0.7) 03/15/18 22:00 Baso # (Auto) 0.0 K/uL (0.0-0.2) 03/15/18 22:00 Neutrophils % (Manual) 93 % (42-75) H 03/15/18 22:00 Lymphocytes % (Manual) 5 % (20-50) L 03/15/18 22:00 Monocytes % (Manual) 1 % (0-10) 03/15/18 22:00 Eosinophils % (Manual) 1 % (0-7) 03/15/18 22:00 Platelet Estimate Normal (NORMAL) 03/15/18 22:00 Hypochromasia (manual) Slight 03/15/18 22:00 Microcytosis (manual) Slight 03/15/18 22:00 Spherocytes Slight 03/15/18 22:00 Stomatocytes Slight 03/15/18 22:00 Sodium 143 mmol/l (132-148) 03/16/18 05:55 Potassium 4.1 MMOL/L (3.6-5.0) 03/16/18 05:55 Chloride 101 mmol/L (98-107) 03/16/18 05:55 Carbon Dioxide 22 mmol/L (22-30) 03/16/18 05:55 Anion Gap 24 (10-20) H 03/16/18 05:55 BUN 11 mg/dl (7-17) 03/16/18 05:55 Creatinine 0.5 mg/dl (0.7-1.2) L 03/16/18 05:55 Est GFR ( Amer) > 60 03/16/18 05:55 Est GFR (Non-Af Amer) > 60 03/16/18 05:55 Random Glucose 192 mg/dL (65-105) H 03/16/18 05:55 Calcium 9.6 mg/dL (8.4-10.2) 03/16/18 05:55 Total Bilirubin 0.3 mg/dl (0.2-1.3) 03/15/18 22:00 AST 21 U/L (14-36) 03/15/18 22:00 ALT 29 U/L (9-52) 03/15/18 22:00 Alkaline Phosphatase 71 U/L (38-126) 03/15/18 22:00 Total Protein 7.4 G/DL (6.3-8.2) 03/15/18 22:00 Albumin 4.0 g/dL (3.5-5.0) 03/15/18 22:00 Globulin 3.4 gm/dL (2.2-3.9) 03/15/18 22:00 Albumin/Globulin Ratio 1.2 (1.0-2.1) 03/15/18 22:00 - Hospital Course Hospital Course: 38 y/o female with a PMHx of severe persistent asthma admitted for acute asthma exacerbation. In ED she received 2 nebulizer treatments as well as a dose of 125mg Solu-medrol. She thinks her asthma has been exacerbated due to feeling a post nasal drip. CXR: no infiltrate. EKG wnl. CBC and CMP wnl, VS stable. Patient condition improved during stay, asymptomatic at discharge time. Patient discharged home safely with Advir, Ventolin and Singulair. Patient will receive a call from Elham Miller to confirm an appt at [facility]. Discharge Exam - Head Exam Head Exam: NORMAL INSPECTION - Eye Exam Eye Exam: EOMI, PERRL - Respiratory Exam Respiratory Exam: Clear to PA & Lateral. absent: Decreased Breath Sounds, Wheezes, Respiratory Distress - Cardiovascular Exam Cardiovascular Exam: REGULAR RHYTHM, +S1, +S2. absent: Tachycardia - GI/Abdominal Exam GI & Abdominal Exam: Normal Bowel Sounds, Soft. absent: Tenderness - Neurological Exam Neurological exam: Alert, CN II-XII Intact, Oriented x3 - Psychiatric Exam Psychiatric exam: Normal Mood - Skin Skin Exam: Dry, Warm Discharge Plan - Discharge Medications Prescriptions: Albuterol 0.083% [Albuterol 0.083% Inhal Jayne (2.5 mg/3 ml) UD] 3 ml IH Q4 PRN # 50 vial PRN Reason: asthma Cetirizine HCl [Zyrtec] 10 mg PO DAILY #30 capsule Fluticasone Nasal [Flonase] 1 actuation NS DAILY #1 vial Fluticasone/Salmeterol 250/50 [Advair Diskus 250/50] 1 dsk IH Q12 #60 puff Montelukast Sodium [Singulair] 10 mg PO QAM #14 tablet - Follow Up Plan Condition: IMPROVED Disposition: HOME/ ROUTINE Instructions: Asthma, Adult (DC), Sinusitis, Adult (DC) Additional Instructions: F/u with PCP at [facility] in 2-3 days. Compliance with meds encouraged ER precautions given Referrals: [facility] [place] [Outside]
[2018-03-16] MEDS ORDERED: Albuterol 0.083% Inhal Sol (2.5 mg/3 mL) UD INH SCH ×2 (14:00)
--- NOTE | 2018-03-16 20:38 | CARD ---
APPROVED REPORT EKG Measurement Heart [id number] <Conclusion> Sinus tachycardia Possible Left atrial enlargement Borderline ECG
== END 2018-03-16 14:35 | disposition home or self-care (01) ==
LOC: H.ER 20:07 → H.ERHOLD 22:32 → H.MEDSURG1 23:15
PROVIDERS: ADMIT Family Medicine Geriatric Medicine; ATTEND Family Medicine Geriatric Medicine
DX: J45.51 Severe persistent asthma with (acute) exacerbation (principal); R09.82 Postnasal drip; E87.6 Hypokalemia; J32.9 Chronic sinusitis, unspecified; F41.9 Anxiety disorder, unspecified; M19.90 Unspecified osteoarthritis, unspecified site; F32.9 Major depressive disorder, single episode, unspecified; F43.10 Post-traumatic stress disorder, unspecified; N18.6 End stage renal disease
CPT/HCPCS: 36415; 71046; 80048; 80053; 81025; 85025; 93005; 94150; 94640; 96374; 99283; G0378; J1885

== ENCOUNTER 2018-06-09 19:12 | Emergency (ER) | payer MEDICAID ==
[2018-06-09 19:13] VITALS: BMI 22.4
[2018-06-09 19:45] VITALS: BP 103/70; PULSE 79; RESP 18; TEMP 98.7; O2SAT 100
[2018-06-09] MEDS ORDERED: Amoxicillin-Clav 875-125 mg Tab PO STA (19:55)
--- NOTE | 2018-06-09 20:02 | ED PDOC ---
History of Present Illness History of Present Illness: 38 y/o female with a PMHx of asthma presents to the ED complaining of congestion associated with popping and clacking in the ears, difficulty swallowing, dizziness, lack of sleep and decreased appetite for the past couple days. Patient reports of trying [id number] medications with no relief. Patient states she may have a possible allergy to Motrin due to wheezing after use. PMD: None Provided HPI: Influenza Time Seen by Provider: 06/09/18 19:23 Chief Complaint: Cough, Cold, Congestion Chief Complaint (Provider): Cough, Cold, Congestion History Per: Patient Exam Limitations: no limitations Onset/Duration Of Symptoms: Days Symptoms include: nasal congestion, difficulty breathing Past Medical History Reviewed: Historical Data, Nursing Documentation, Vital Signs Vital Signs: Last Vital Signs Temp 98.7 F 06/09/18 19:43 Pulse 79 06/09/18 19:43 Resp 18 06/09/18 19:43 BP 103/70 06/09/18 19:43 Pulse Ox 100 06/09/18 19:43 - Medical History PMH: Anemia, Anxiety, Arthritis, Asthma, Bronchitis, Depression, Gall Bladder Disease, Pneumonia, Post Traumatic Stress Disorder, End Stage Renal Disease Denies: Diabetes, Hepatitis, HIV, HTN, Chronic Kidney Disease, Seizures, Sexually Transmitted Disease - Surgical History Surgical History: - Family History Family History: States: Diabetes, Hypertension - Home Medications Home Medications: Ambulatory Orders Medication Instructions Recorded Albuterol HFA [Ventolin HFA 90 2 puff IH [id number] PRN #1 inhaler 11/28/17 mcg/actuation (8 g)] Albuterol 0.083% [Albuterol 0.083% 3 ml IH Q4 PRN #50 vial 03/16/18 Inhal Jayne (2.5 mg/3 ml) UD] Cetirizine HCl [Zyrtec] 10 mg PO DAILY #30 capsule 03/16/18 Fluticasone Nasal [Flonase] 1 actuation NS DAILY #1 vial 03/16/18 Fluticasone/Salmeterol 250/50 1 dsk IH Q12 #60 puff 03/16/18 [Advair Diskus 250/50] Montelukast Sodium [Singulair] 10 mg PO QAM #14 tablet 03/16/18 Amoxicillin/Clavulanate [Augmentin 1 tab PO BID #14 tab 06/09/18 875 MG-125 MG] Fluticasone Propionate [Flonase] 1 spr NS BID #1 spr 06/09/18 Methylprednisolone [Medrol Dose 4 mg PO DAILY #21 mg 06/09/18 Pack (21 tabs)] - Allergies Allergies/Adverse Reactions: Allergies Allergy/AdvReac Type Severity Reaction Status Date / Time seasonal Allergy Intermediate WHEEZING Uncoded 06/09/18 19:43 Review of Systems ROS Statement: Except As Marked, All Systems Reviewed And Found Negative ENT: Positive for: Ear Pain, Nose Congestion, Throat Pain Gastrointestinal: Positive for: Other (Decreaed appetite) Physical Exam - Reviewed Nursing Documentation Reviewed: Yes Vital Signs Reviewed: Yes - Physical Exam Appears: Positive for: No Acute Distress Head Exam: Positive for: ATRAUMATIC, NORMAL INSPECTION (maxillary sinus tenderness), NORMOCEPHALIC Skin: Positive for: Normal Color, Warm, Dry Eye Exam: Positive for: Normal appearance, EOMI, PERRL ENT: Positive for: Normal ENT Inspection, Other (turbinate hypertrophy noted to bilateral nasal passages) Neck: Positive for: Normal, Painless ROM Cardiovascular/Chest: Positive for: Regular Rate, Rhythm. Negative for: Murmur Respiratory: Positive for: Normal Breath Sounds. Negative for: Respiratory Distress Extremity: Positive for: Normal ROM. Negative for: Deformity Neurologic/Psych: Positive for: Alert, Oriented (x3). Negative for: Motor/ Sensory Deficits Medical Decision Making Medical Decision Making: Time: 1956 Plan: -- Augmentin [85 mg - 125 mg] 1 tab PO -- SOLU-Medrol 125 mg IVP Scribe Attestation: Documented by Odessa Christian, acting as a scribe for Dolores Mendes PA-C. Provider Scribe Attestation: All medical record entries made by the Scribe were at my direction and personally dictated by me. I have reviewed the chart and agree that the record accurately reflects my personal performance of the history, physical exam, medical decision making, and the department course for this patient. I have also personally directed, reviewed, and agree with the discharge instructions and disposition. - ECG O2 Sat by Pulse Oximetry: 100 (RA) Pulse Ox Interpretation: Normal Disposition - Clinical Impression Clinical Impression: Sinusitis - Patient ED Disposition Is Patient to be Admitted: No - Disposition Referrals: Isaias Velazquez MD [Staff Provider] - Disposition: Routine/Home Disposition Time: 20:32 Condition: STABLE Prescriptions: Amoxicillin/Clavulanate [Augmentin 875 MG-125 MG] 1 tab PO BID #14 tab Fluticasone Propionate [Flonase] 1 spr NS BID #1 spr Methylprednisolone [Medrol Dose Pack (21 tabs)] 4 mg PO DAILY #21 mg Instructions: Sinusitis in Adults Forms: [facility] (Indonesian)
[2018-06-09] MEDS ORDERED: Amoxicillin-Clav 875-125 mg Tab PO ONE (20:04)
== END 2018-06-09 20:21 | disposition home or self-care (01) ==
LOC: H.ER 19:12
DX: J32.9 Chronic sinusitis, unspecified (principal); R06.2 Wheezing; N18.6 End stage renal disease; F43.10 Post-traumatic stress disorder, unspecified; F32.9 Major depressive disorder, single episode, unspecified
CPT/HCPCS: 96374; 99282; J2930

== ENCOUNTER 2018-07-31 16:13 | Emergency (ER) | payer MEDICAID ==
[2018-07-31 16:13] VITALS: BMI 22.4
[2018-07-31 16:45] VITALS: BP 107/67; PULSE 92; RESP 16; TEMP 98.2; O2SAT 99
--- NOTE | 2018-07-31 17:34 | ED PDOC ---
HPI: General Adult Time Seen by Provider: 07/31/18 16:59 Chief Complaint (Nursing): Dizziness/Lightheaded History Per: Patient Additional Complaint(s): Two month hx o nasal congestion with R sided facial pain. Pt. states she was seen in this ED 2 months ago and prescribed augmentin and flonase with transient relief. Symptoms have persisted since finishing medications. Denies fever, headache, chest pain, SOB, cough. Past Medical History Reviewed: Historical Data, Nursing Documentation, Vital Signs Vital Signs: Last Vital Signs Temp 98.2 F 07/31/18 16:42 Pulse 92 H 07/31/18 16:42 Resp 16 07/31/18 16:42 BP 107/67 07/31/18 16:42 Pulse Ox 99 07/31/18 17:34 - Medical History PMH: Anemia, Anxiety, Arthritis, Asthma, Bronchitis, Depression, Gall Bladder Disease, Pneumonia, Post Traumatic Stress Disorder, End Stage Renal Disease Denies: Diabetes, Hepatitis, HIV, HTN, Chronic Kidney Disease, Seizures, Sexually Transmitted Disease - Surgical History Surgical History: - Family History Family History: States: No Known Family Hx, Diabetes, Hypertension - Home Medications Home Medications: Ambulatory Orders Medication Instructions Recorded Albuterol HFA [Ventolin HFA 90 2 puff IH [id number] PRN #1 inhaler 11/28/17 mcg/actuation (8 g)] Albuterol 0.083% [Albuterol 0.083% 3 ml IH Q4 PRN #50 vial 03/16/18 Inhal Jayne (2.5 mg/3 ml) UD] Cetirizine HCl [Zyrtec] 10 mg PO DAILY #30 capsule 03/16/18 Fluticasone Nasal [Flonase] 1 actuation NS DAILY #1 vial 03/16/18 Fluticasone/Salmeterol 250/50 1 dsk IH Q12 #60 puff 03/16/18 [Advair Diskus 250/50] Montelukast Sodium [Singulair] 10 mg PO QAM #14 tablet 03/16/18 Amoxicillin/Clavulanate [Augmentin 1 tab PO BID #14 tab 06/09/18 875 MG-125 MG] Fluticasone Propionate [Flonase] 1 spr NS BID #1 spr 06/09/18 Methylprednisolone [Medrol Dose 4 mg PO DAILY #21 mg 06/09/18 Pack (21 tabs)] Mometasone Furoate [Nasonex] 2 spray NS DAILY #1 spray.pump 07/31/18 - Allergies Allergies/Adverse Reactions: Allergies Allergy/AdvReac Type Severity Reaction Status Date / Time seasonal Allergy Intermediate WHEEZING Uncoded 06/09/18 19:43 Review of Systems ROS Statement: Except As Marked, All Systems Reviewed And Found Negative ENT: Positive for: Nose Congestion Physical Exam - Physical Exam Appears: Positive for: Well, Non-toxic, No Acute Distress Skin: Positive for: Normal Color, Warm. Negative for: Rash Eye Exam: Positive for: Normal appearance. Negative for: Conjunctival injection ENT: Positive for: Other (B/L nasal polys; R polyp completely occludes R nostril but L only partial occlusion) Cardiovascular/Chest: Positive for: Regular Rate, Rhythm Respiratory: Positive for: Normal Breath Sounds. Negative for: Stridor, Respiratory Distress Neurologic/Psych: Positive for: Alert, Oriented (x3). Negative for: Aphasia, Facial Droop - ECG O2 Sat by Pulse Oximetry: 99 - Progress ED Course And Treament: Advised to f/u with ENT for further evaluation. Disposition - Clinical Impression Clinical Impression: Nasal polyps - Patient ED Disposition Is Patient to be Admitted: No - Disposition Referrals: Jean Carey MD [Staff Provider] - [facility] [Outside] [facility] [Outside] Disposition: Routine/Home Disposition Time: 17:32 Condition: STABLE Additional Instructions: FOLLOW UP WITH ENT FOR FURTHER EVALUATION [place], thank you for letting us take care of you today. Your provider was Frederick Pickett MD and you were treated for DIZZINESS. The emergency medical care you received today was directed at your acute symptoms. If you were prescribed any medication, please fill it and take as directed. It may take several days for your symptoms to resolve. Return to the Emergency Department if your symptoms worsen, do not improve, or if you have any other problems. Please contact your doctor or call one of the physicians/clinics you have been referred to that are listed on the Patient Visit Information form that is included in your discharge packet. Bring any paperwork you were given at discharge with you along with any medications you are taking to your follow up visit. Our treatment cannot replace ongoing medical care by a primary care provider outside of the emergency department. Thank you for allowing the [facility] team to be part of your care today. If you had an X-Ray or CT scan: A Radiologist will review the ED reading if any change in treatment is needed we will contact you. If you had a blood, urine, or wound culture: It will take several days for the results, if any change in treatment is needed we will contact you. If you had an STI test: It will take 48 hours for the results. Please call after 1 week if you have not heard back. Prescriptions: Mometasone Furoate [Nasonex] 2 spray NS DAILY #1 spray.pump Instructions: Nasal Polyps Forms: [facility] (Bulgarian)
== END 2018-07-31 18:20 | disposition home or self-care (01) ==
LOC: H.ER 16:13
DX: J33.9 Nasal polyp, unspecified (principal)

== ENCOUNTER 2018-09-12 18:20 | Emergency (ER) | payer MEDICAID ==
[2018-09-12 18:21] VITALS: BMI 22.4
[2018-09-12 18:28] VITALS: BP 110/73; PULSE 90; RESP 16; TEMP 97.4; O2SAT 95
--- NOTE | 2018-09-12 19:37 | ED PDOC ---
HPI: CCC, URI, Sore Throat Time Seen by Provider: 09/12/18 19:14 Chief Complaint (Nursing): ENT Problem Chief Complaint (Provider): ENT Problem History Per: Patient History/Exam Limitations: no limitations Onset/Duration Of Symptoms: Days Location Of Pain: Sinus/es Additional Complaint(s): Kaelyn Mcghee is a 38 year old female with a past medical history of polyps, asthma, and anxiety who is presenting to the ED for evaluation of sinus pressure and congestion onset 10 days ago. Patient states she took over the counter Mucinex with no relief of symptoms. She also denies any fevers or chills. PMD: none provided Past Medical History Reviewed: Historical Data, Nursing Documentation, Vital Signs Vital Signs: Last Vital Signs Temp 97.4 F L 09/12/18 18:26 Pulse 90 09/12/18 18:26 Resp 16 09/12/18 18:26 BP 110/73 09/12/18 18:26 Pulse Ox 95 09/12/18 18:26 - Medical History PMH: Anemia, Anxiety, Arthritis, Asthma, Bronchitis, Depression, Gall Bladder Disease, Pneumonia, Post Traumatic Stress Disorder, End Stage Renal Disease Denies: Diabetes, Hepatitis, HIV, HTN, Chronic Kidney Disease, Seizures, Sexually Transmitted Disease - Surgical History Surgical History: - Family History Family History: States: Diabetes, Hypertension - Social History Current smoker - smoking cessation education provided: No Alcohol: None Drugs: Denies - Home Medications Home Medications: Ambulatory Orders Medication Instructions Recorded Albuterol HFA [Ventolin HFA 90 2 puff IH [id number] PRN #1 inhaler 11/28/17 mcg/actuation (8 g)] Albuterol 0.083% [Albuterol 0.083% 3 ml IH Q4 PRN #50 vial 03/16/18 Inhal Jayne (2.5 mg/3 ml) UD] Cetirizine HCl [Zyrtec] 10 mg PO DAILY #30 capsule 03/16/18 Fluticasone Nasal [Flonase] 1 actuation NS DAILY #1 vial 03/16/18 Fluticasone/Salmeterol 250/50 1 dsk IH Q12 #60 puff 03/16/18 [Advair Diskus 250/50] Montelukast Sodium [Singulair] 10 mg PO QAM #14 tablet 03/16/18 Amoxicillin/Clavulanate [Augmentin 1 tab PO BID #14 tab 06/09/18 875 MG-125 MG] Fluticasone Propionate [Flonase] 1 spr NS BID #1 spr 06/09/18 Methylprednisolone [Medrol Dose 4 mg PO DAILY #21 mg 06/09/18 Pack (21 tabs)] Mometasone Furoate [Nasonex] 2 spray NS DAILY #1 spray.pump 07/31/18 Amoxicillin/Clavulanate [Augmentin 1 tab PO BID #20 tab 09/12/18 875 MG-125 MG] Guaifen/Phenyleph/Acetaminophn 1 tab PO BID #14 tab 09/12/18 [Mucinex Fast-Max Cold & Sinus 325 mg-200 mg-5] - Allergies Allergies/Adverse Reactions: Allergies Allergy/AdvReac Type Severity Reaction Status Date / Time ibuprofen [From Motrin] Allergy SHORTNESS Verified 09/12/18 18:26 OF BREATH seasonal Allergy Intermediate WHEEZING Uncoded 09/12/18 18:23 Review of Systems ROS Statement: Except As Marked, All Systems Reviewed And Found Negative Constitutional: Negative for: Fever, Chills ENT: Positive for: Nose Congestion, Other (sinus pressure) Physical Exam - Reviewed Nursing Documentation Reviewed: Yes Vital Signs Reviewed: Yes - Physical Exam Appears: Positive for: Well, Non-toxic, No Acute Distress Head Exam: Positive for: ATRAUMATIC, NORMAL INSPECTION, NORMOCEPHALIC Skin: Positive for: Normal Color, Warm, DRY Eye Exam: Positive for: EOMI, Normal appearance, PERRL ENT: Positive for: Normal ENT Inspection Cardiovascular/Chest: Positive for: Regular Rate, Rhythm. Negative for: Murmur Respiratory: Positive for: Normal Breath Sounds. Negative for: Respiratory Distress Neurologic/Psych: Positive for: Alert, Oriented. Negative for: Motor/Sensory Deficits - ECG O2 Sat by Pulse Oximetry: 95 (RA) Medical Decision Making Medical Decision Making: Time: 19:18 Plan: --Solu-Medrol 125 mg IM Scribe Attestation: Documented by Darlyn Jones, acting as a scribe for Leila Barrera PA-C. Provider Scribe Attestation: All medical record entries made by the Scribe were at my direction and personally dictated by me. I have reviewed the chart and agree that the record accurately reflects my personal performance of the history, physical exam, medical decision making, and the department course for this patient. I have also personally directed, reviewed, and agree with the discharge instructions and disposition. Disposition - Clinical Impression Clinical Impression: Sinusitis - Patient ED Disposition Is Patient to be Admitted: No Counseled Patient/Family Regarding: Diagnosis, Need For Followup, Rx Given - Disposition Referrals: [facility] [Outside] Disposition: Routine/Home Disposition Time: 19:23 Condition: GOOD Prescriptions: Amoxicillin/Clavulanate [Augmentin 875 MG-125 MG] 1 tab PO BID #20 tab Guaifen/Phenyleph/Acetaminophn [Mucinex Fast-Max Cold & Sinus 325 mg-200 mg-5] 1 tab PO BID #14 tab Instructions: Sinusitis, Adult (DC) Forms: [employer] (Portuguese)
== END 2018-09-12 19:57 | disposition home or self-care (01) ==
LOC: H.ER 18:20
DX: J32.9 Chronic sinusitis, unspecified (principal); F43.10 Post-traumatic stress disorder, unspecified; Z86.59 Personal history of other mental and behavioral disorders; J45.909 Unspecified asthma, uncomplicated; N18.6 End stage renal disease; Z88.6 Allergy status to analgesic agent
CPT/HCPCS: 81025; 96372; 99283; J2930

== ENCOUNTER 2018-10-25 13:39 | Emergency (ER) | payer MEDICAID ==
[2018-10-25 13:40] VITALS: BMI 22.4
[2018-10-25] MEDS ORDERED: Albuterol-Ipratrop 3 mg / 0.5 (3 ml) UD INH STA ×2 (14:12→16:19)
--- NOTE | 2018-10-25 14:13 | ED PDOC ---
History of Present Illness History of Present Illness: Pt presents to the ED with a hx of asthma, asthma exacerbation and allergy for which she is treated by MANOLO, LABA and antihistamines. Pt indicates that today she awoke and began having immediate difficulty breathing as well just feeling ill all over. Pt denies other illnesses, complaints, or medications. HPI: Influenza Time Seen by Provider: 10/25/18 14:10 Chief Complaint: Cough, Cold, Congestion Chief Complaint (Provider): Allergy and Asthma History Per: Patient Exam Limitations: no limitations Have you had recent travel within the past 21 days to any of: No Onset/Duration Of Symptoms: Days (one) Symptoms include: headache, nasal congestion Sick Contacts (Context): None Hx Influenza Vaccination: No Risk factors for flu complications: Yes: chronic lung disease Past Medical History Reviewed: Historical Data, Nursing Documentation, Vital Signs Vital Signs: Last Vital Signs Temp 97.2 F L 10/25/18 13:52 Pulse 87 10/25/18 13:52 Resp 26 H 10/25/18 13:52 BP 153/75 H 10/25/18 13:52 Pulse Ox 100 10/25/18 13:52 - Medical History PMH: Anemia, Anxiety, Arthritis, Asthma, Bronchitis, Depression, Gall Bladder Disease, Pneumonia, Post Traumatic Stress Disorder, End Stage Renal Disease Denies: Diabetes, Hepatitis, HIV, HTN, Chronic Kidney Disease, Seizures, Sex ually Transmitted Disease - Surgical History Surgical History: - Family History Family History: States: Diabetes, Hypertension - Immunization History Hx Tetanus Toxoid Vaccination: No Hx Influenza Vaccination: No Hx Pneumococcal Vaccination: No - Home Medications Home Medications: Ambulatory Orders Medication Instructions Recorded Albuterol HFA [Ventolin HFA 90 2 puff IH [id number] PRN #1 inhaler 11/28/17 mcg/actuation (8 g)] Albuterol 0.083% [Albuterol 0.083% 3 ml IH Q4 PRN #50 vial 03/16/18 Inhal Jayne (2.5 mg/3 ml) UD] Cetirizine HCl [Zyrtec] 10 mg PO DAILY #30 capsule 03/16/18 Fluticasone Nasal [Flonase] 1 actuation NS DAILY #1 vial 03/16/18 Fluticasone/Salmeterol 250/50 1 dsk IH Q12 #60 puff 03/16/18 [Advair Diskus 250/50] Montelukast Sodium [Singulair] 10 mg PO QAM #14 tablet 03/16/18 Amoxicillin/Clavulanate [Augmentin 1 tab PO BID #14 tab 06/09/18 875 MG-125 MG] Fluticasone Propionate [Flonase] 1 spr NS BID #1 spr 06/09/18 Methylprednisolone [Medrol Dose 4 mg PO DAILY #21 mg 06/09/18 Pack (21 tabs)] Mometasone Furoate [Nasonex] 2 spray NS DAILY #1 spray.pump 07/31/18 Amoxicillin/Clavulanate [Augmentin 1 tab PO BID #20 tab 09/12/18 875 MG-125 MG] Guaifen/Phenyleph/Acetaminophn 1 tab PO BID #14 tab 09/12/18 [Mucinex Fast-Max Cold & Sinus 325 mg-200 mg-5] - Allergies Allergies/Adverse Reactions: Allergies Allergy/AdvReac Type Severity Reaction Status Date / Time ibuprofen [From Motrin] Allergy SHORTNESS Verified 09/12/18 18:26 OF BREATH seasonal Allergy Intermediate WHEEZING Uncoded 09/12/18 18:23 Review of Systems ROS Statement: Except As Marked, All Systems Reviewed And Found Negative Constitutional: Negative for: Fever, Chills, Sweats ENT: Negative for: Ear Pain Cardiovascular: Negative for: Chest Pain Respiratory: Positive for: Cough, Shortness of Breath, Wheezing Physical Exam - Reviewed Nursing Documentation Reviewed: Yes Vital Signs Reviewed: Yes - Physical Exam Appears: Positive for: Well, Non-toxic, No Acute Distress Head Exam: Positive for: ATRAUMATIC, NORMAL INSPECTION Skin: Positive for: Normal Color, Warm, Dry. Negative for: Diaphoresis, Pallor, Rash Eye Exam: Positive for: Normal appearance, EOMI, PERRL. Negative for: Nystagmus, Periorbital swelling, Periorbital tenderness ENT: Positive for: Normal ENT Inspection, Pharynx Is (clear with no erythema, lesion or exudate), TM Is/Are (clear to sight and all landmarks are visible), Nasal Congestion. Negative for: Pharyngeal Erythema, Tonsillar Exudate Neck: Positive for: Normal, Painless ROM, Supple. Negative for: Decreased ROM Cardiovascular/Chest: Positive for: Regular Rate, Rhythm, Chest Non Tender. Negative for: Edema, Bradycardia, Tachycardia Respiratory: Positive for: Normal Breath Sounds. Negative for: Decreased Breath Sounds, Accessory Muscle Use, Crackles, Rales, Rhonchi, Stridor, Wheezing, Respiratory Distress Pulses-Carotid (L): 2+ Pulses-Carotid (R): 2+ Pulses-Radial (L): 2+ Pulses-Radial (R): 2+ Medical Decision Making Medical Decision Making: Treated with duoneb originally CBC and CMP indicates no signs of clinical significance with the exception of heightened eosinophils treated prior to discharge with 50mgl diphenhydramine Pt is breathing well and resting requesting discharge - Laboratory Results Result Diagrams: 10/25/18 14:29 10/25/18 14:29 - ECG O2 Sat by Pulse Oximetry: 100 Disposition - Clinical Impression Clinical Impression: Acute allergic rhinitis - Patient ED Disposition Is Patient to be Admitted: No Doctor Will See Patient In The: Office Counseled Patient/Family Regarding: Studies Performed, Diagnosis, Need For Followup - Disposition Referrals: [facility] [Provider Group] Disposition: Routine/Home Disposition Time: 17:34 Condition: STABLE Instructions: Seasonal Allergies (DC), Sinusitis in Adults Forms: [employer] (Chinese)
[2018-10-25 14:29] LABS: SQUAMOUS EPITHIAL 5 /hpf (0-5); URINE BACTERIA RARE (<OCC); URINE BILIRUBIN NEGATIVE (NEGATIVE); URINE BLOOD NEGATIVE (NEGATIVE); URINE CLARITY SLIGHTY-CLOUDY (Clear); URINE COLOR STRAW (YELLOW); URINE GLUCOSE (UA) NEG (NEGATIVE); URINE LEUKOCYTE ESTERASE TRACE Leu/uL (Negative); URINE PROTEIN NEGATIVE (NEGATIVE); URINE UROBILINOGEN 0.2-1.0 mg/dL (0.2-1.0)
[2018-10-25 14:39] LABS: BASO # 0.1 K/uL (0.0-0.2); BASO % 0.9 % (0.0-2.0); EOS # 0.5 K/uL (0.0-0.7); EOS % 6.7 % (0.0-4.0); LYMPH # 1.5 K/uL (1.0-4.3); MEAN CORPUSCULAR HEMOGLOBIN 20.4 pg (27.0-31.0); MEAN CORPUSCULAR HGB CONC 30.1 g/dL (33.0-37.0); MEAN PLATELET VOLUME 8.5 fl (7.2-11.7); MONO # 0.4 K/uL (0.0-0.8); MONO % 5.1 % (0.0-10.0); NEUT # 5.6 K/uL (1.8-7.0); NEUT % 69.3 % (50.0-75.0); RBC 4.4 Mil/uL (3.80-5.20); RED CELL DISTRIBUTION WIDTH 16.6 % (11.5-14.5); WHITE BLOOD COUNT 8.1 K/uL (4.8-10.8)
[2018-10-25 14:40] LABS: MEAN CELL VOLUME 67.8 fl (81.0-99.0)
[2018-10-25 14:44] LABS: ALB/GLOB RATIO 1.2 (1.0-2.1); ALBUMIN 3.9 g/dL (3.5-5.0); ALT/SGPT 22 U/L (9-52); AST/SGOT 21 U/L (14-36); BLOOD UREA NITROGEN 11 mg/dl (7-17); CALCIUM 8.9 mg/dL (8.4-10.2); GFR NON-AFRICAN AMERICAN > 60
--- NOTE | 2018-10-25 15:12 | RAD ---
Date of service: 10/25/2018 HISTORY: r/o pna COMPARISON: No prior. TECHNIQUE: Chest PA and lateral FINDINGS: LUNGS: No active pulmonary disease. PLEURA: No significant pleural effusion identified. No pneumothorax apparent. CARDIOVASCULAR: No aortic atherosclerotic calcification present. Normal cardiac size. No pulmonary vascular congestion. OSSEOUS STRUCTURES: No significant abnormalities. VISUALIZED UPPER ABDOMEN: Normal. OTHER FINDINGS: None. IMPRESSION: No active disease.
[2018-10-25] MEDS ORDERED: Albuterol-Ipratrop 3 mg / 0.5 (3 ml) UD ONE (16:13)
[2018-10-25] MEDS ORDERED: DiphenhydrAMINE 50 mg/ml Inj IVP STA (17:01)
[2018-10-25] MEDS ORDERED: DiphenhydrAMINE 50 mg/ml Inj ONE (17:09)
[2018-10-25 18:16] VITALS: BP 114/68; PULSE 98; RESP 20; TEMP 98.8; O2SAT 99
== END 2018-10-25 18:16 | disposition home or self-care (01) ==
LOC: H.ER 13:39
DX: J30.9 Allergic rhinitis, unspecified (principal); N18.6 End stage renal disease; Z88.6 Allergy status to analgesic agent
CPT/HCPCS: 71046; 80053; 81003; 81025; 85025; 87804; 94640; 96374; 99283; J1200

== ENCOUNTER 2019-03-23 08:18 | Emergency (ER) | payer MEDICAID ==
[2019-03-23 08:18] VITALS: BMI 22.4
[2019-03-23] MEDS: Albuterol-Ipratrop 3 mg / 0.5 (3 ml) UD INH STA ×3 (08:30→10:18)
[2019-03-23] MEDS ORDERED: Albuterol-Ipratrop 3 mg / 0.5 (3 ml) UD ONE ×2 (08:31→10:05)
[2019-03-23 08:33] VITALS: O2SAT 98
--- NOTE | 2019-03-23 09:50 | ED PDOC ---
HPI: SOB/CHF/COPD Time Seen by Provider: 03/23/19 09:02 Chief Complaint (Nursing): Shortness Of Breath Chief Complaint (Provider): Shortness Of Breath History Per: Patient History/Exam Limitations: no limitations Onset/Duration Of Symptoms: Persistent (x1 week) Current Symptoms Are (Timing): Still Present Additional Complaint(s): 39 year old female with medical history of asthma, presents to the emergency department with a complaint of asthma exacerbation for 1 week. Patient states that symptoms may be triggered by her allergies and has been taking Zyrtec, asthma pumps, and Singular with minimal relief. She ran out of inhalers recently then went to [facility] for refills, however, clinic was not open, thus, prompting visit to ED. Patient reports that her child recently had a GI virus. She denies any previous intubation or ICU admission with last hospital admission a year ago for similar symptoms. PCP: none provided Past Medical History Reviewed: Historical Data, Nursing Documentation, Vital Signs Vital Signs: Last Vital Signs Temp Pulse Resp BP Pulse Ox 98 03/23/19 08:31 Primary Care Provider: FAMILY PROVIDER,NO - Medical History PMH: Anemia, Anxiety, Arthritis, Asthma, Bronchitis, Depression, Gall Bladder Disease, Pneumonia, Post Traumatic Stress Disorder, End Stage Renal Disease Denies: Diabetes, Hepatitis, HIV, HTN, Chronic Kidney Disease, Seizures, Sexually Transmitted Disease - Surgical History Surgical History: - Family History Family History: States: Diabetes, Hypertension - Immunization History Hx Tetanus Toxoid Vaccination: No Hx Influenza Vaccination: No Hx Pneumococcal Vaccination: No - Home Medications Home Medications: Ambulatory Orders Medication Instructions Recorded RX: Albuterol HFA [Ventolin HFA 90 2 puff IH [id number] PRN #1 inhaler 11/28/17 mcg/actuation (8 g)] RX: Albuterol 0.083% [Albuterol 3 ml IH Q4 PRN #50 vial 03/16/18 0.083% Inhal Jayne (2.5 mg/3 ml) UD] RX: Cetirizine HCl [Zyrtec] 10 mg PO DAILY #30 capsule 03/16/18 RX: Fluticasone Nasal [Flonase] 1 actuation NS DAILY #1 vial 03/16/18 RX: Fluticasone/Salmeterol 250/50 1 dsk IH Q12 #60 puff 03/16/18 [Advair Diskus 250/50] RX: Montelukast Sodium [Singulair] 10 mg PO QAM #14 tablet 03/16/18 Amoxicillin/Clavulanate [Augmentin 1 tab PO BID #14 tab 06/09/18 875 MG-125 MG] Fluticasone Propionate [Flonase] 1 spr NS BID #1 spr 06/09/18 Methylprednisolone [Medrol Dose 4 mg PO DAILY #21 mg 06/09/18 Pack (21 tabs)] Mometasone Furoate [Nasonex] 2 spray NS DAILY #1 spray.pump 07/31/18 Amoxicillin/Clavulanate [Augmentin 1 tab PO BID #20 tab 09/12/18 875 MG-125 MG] Guaifen/Phenyleph/Acetaminophn 1 tab PO BID #14 tab 09/12/18 [Mucinex Fast-Max Cold & Sinus 325 mg-200 mg-5] Fexofenadine/Pseudoephedrine 1 each PO DAILY #30 tab.er.24h 03/23/19 [Roberta-D 24 Hour Tablet] Montelukast Sodium [Singulair] 10 mg PO HS #30 tablet 03/23/19 RX: predniSONE [predniSONE Tab] 40 mg PO DAILY #10 tab 03/23/19 - Allergies Allergies/Adverse Reactions: Allergies Allergy/AdvReac Type Severity Reaction Status Date / Time ibuprofen [From Motrin] Allergy SHORTNESS Verified 03/23/19 08:31 OF BREATH seasonal Allergy Intermediate WHEEZING Uncoded 03/23/19 08:31 Review of Systems ROS Statement: Except As Marked, All Systems Reviewed And Found Negative Constitutional: Negative for: Fever, Chills ENT: Positive for: Nose Congestion Respiratory: Positive for: Shortness of Breath Physical Exam - Reviewed Nursing Documentation Reviewed: Yes Vital Signs Reviewed: Yes - Physical Exam Appears: Positive for: No Acute Distress Head Exam: Positive for: ATRAUMATIC, NORMAL INSPECTION, NORMOCEPHALIC Skin: Positive for: Normal Color Eye Exam: Positive for: Normal appearance, EOMI, PERRL ENT: Positive for: TM Is/Are (clear bilaterally), Sinus Pain/Drainage (frontal tenderness). Negative for: Pharyngeal Erythema Cardiovascular/Chest: Positive for: Regular Rate, Rhythm. Negative for: Murmur Respiratory: Positive for: Wheezing (expiratory bilaterally). Negative for: Other (retraction) Gastrointestinal/Abdominal: Positive for: Normal Exam, Soft. Negative for: Tenderness Extremity: Positive for: Normal ROM (upper/lower). Negative for: Pedal Edema, Calf Tenderness (bilaterally) Neurological/Psych: Positive for: Awake, Alert, Normal Tone, Oriented (x3) - ECG O2 Sat by Pulse Oximetry: 98 (RA) Pulse Ox Interpretation: Normal Medical Decision Making Medical Decision Making: Time: 15 Initial Plan: treat for asthma exacerbation triggered by allergies. Tylenol for headache. Reassess patient after medications. Most likely to discharge with Rx refills. No indication for XR or labs at this time. * Duoneb INH * prednisone PO Time: 1046 --Upon provider reevaluation, patient is medically stable, reports improvement in symptoms, and requires no further treatment in the ED at this time. Repeat lung exam is clear bilaterally on auscultation. Patient will be discharged home with Rx for allergy and asthma medications. Counseling was provided and all questions were answered regarding diagnosis. There is agreement to discharge plan. Return precautions discussed. Clinical Impression: allergy; asthma exacerbation Scribe Attestation: Documented by Maria De Jesus Aragon, acting as a scribe for Lauren Rushing MD. Provider Scribe Attestation: All medical record entries made by the Scribe were at my direction and personally dictated by me. I have reviewed the chart and agree that the record accurately reflects my personal performance of the history, physical exam, medical decision making, and the department course for this patient. I have also personally directed, reviewed, and agree with the discharge instructions and disposition. Disposition - Clinical Impression Clinical Impression: Allergy, Asthma exacerbation - Patient ED Disposition Is Patient to be Admitted: No Counseled Patient/Family Regarding: Studies Performed, Diagnosis, Need For Followup - Disposition Disposition: Routine/Home Disposition Time: 10:46 Condition: IMPROVED Prescriptions: Fexofenadine/Pseudoephedrine [Roberta-D 24 Hour Tablet] 1 each PO DAILY #30 tab.er.24h Montelukast Sodium [Singulair] 10 mg PO HS #30 tablet RX: predniSONE [predniSONE Tab] 40 mg PO DAILY #10 tab Instructions: Asthma, Adult (DC), Avoiding Asthma Triggers, Medicines for Asthma, Allergy Skin Testing Forms: [employer] (Kyrgyz) Print Language: SUDANESE
[2019-03-23 11:02] VITALS: BP 107/70; RESP 20; TEMP 97
[2019-03-23 11:03] VITALS: PULSE 96
--- NOTE | 2019-03-23 23:00 | CARD ---
APPROVED REPORT Date of service: 03/23/2019 EKG Measurement Heart [id number] <Conclusion> Sinus tachycardia Possible Left atrial enlargement Borderline ECG
== END 2019-03-23 11:04 | disposition home or self-care (01) ==
LOC: H.ER 08:18
DX: J45.901 Unspecified asthma with (acute) exacerbation (principal); T78.40XA Allergy, unspecified, initial encounter; N18.6 End stage renal disease; Z79.899 Other long term (current) drug therapy